=== PATIENT | male | born 1960 | race Caucasian/White ===

== ENCOUNTER 2018-03-22 11:48 | Inpatient (IN) ==
[2018-03-22] MEDS ORDERED: Piperacillin/Tazobactam 3.375 GM in 0.9 % Sodium Chloride Mini Bag 100 ML IVPB ONE (12:03)
--- NOTE | 2018-03-22 12:10 | Emergency Department Note ---
Disposition Clinical Impression: Cellulitis Qualifiers: Site of cellulitis: trunk Site of cellulitis of trunk: abdominal wall Qualified Code(s): L03.311 - Cellulitis of abdominal wall Obesity Qualifiers: Obesity type: unspecified obesity type Obesity classification: unspecified obesity classification Serious obesity comorbidity presence: unspecified whether serious comorbidity present Qualified Code(s): E66.9 - Obesity, unspecified Anemia Qualifiers: Anemia type: unspecified type Qualified Code(s): D64.9 - Anemia, unspecified Disposition: Admitted As Inpatient Condition: Fair [facility] Care Provider[facility] - Forms: ED Satisfaction Letter Time of Disposition: 12:40 Skin/Abscess/FB HPI Chief complaint: ED Skin/Abscess/Foreign Body Stated complaint: Acute cellulitis/open wound Time Seen by Provider: 03/22/18 11:55 Source: patient, EMS Mode of arrival: EMS Limitations: no limitations Nursing Notes Reviewed: Yes Vital Signs Reviewed: Yes HPI Narrative: Patient with increased redness and seeping from his left abdominal pannus. He states this is much worse than baseline. He relates it to having a urine soiled pad in contact with his skin during a recent admission. He has a history of obesity and chronic debility. He is nonambulatory and is BiPAP dependent. Patient denies fevers. He was sent from the [facility] Subjective Complaint: rash Onset (ago): day(s) Location: Abdomen Improves with: none Worsens with: other (Contact with urine) Context: recent antibiotic Associated symptoms: Reports: denies other symptoms Treatments prior to arrival: antibiotic Home Medications Medication Instructions Recorded Confirmed Levothyroxine [Synthroid] 75 mcg PO HS 03/12/18 03/12/18 Nystatin POWDER [Nystop] 1 appl TP DAILY 03/12/18 03/12/18 Previous Rx's Medication Instructions Recorded Atenolol 12.5 mg PO BID #30 03/14/18 Benadryl 25 mg PO Q6HR PRN #20 03/14/18 BuPROPion XL (24 HR) [Wellbutrin 300 mg PO DAILY #60 tab.er.24h 03/14/18 Xl] Bumetanide 1 mg PO 1200 #30 03/14/18 Bumetanide 2 mg PO QAM #30 03/14/18 Calcitriol [Rocaltrol] 0.25 mcg PO 1200 #30 capsule 03/14/18 Colace 200 mg PO BID #30 03/14/18 Cyanocobalamin (B-12) [Vitamin B12] 1,000 mcg PO DAILY #30 tablet 03/14/18 DULoxetine [Cymbalta] 60 mg PO DAILY #60 capsule. 03/14/18 Fluticasone Propionate [24 Hour 2 spray NS HS #1 spray.susp 03/14/18 Allergy] Insulin LISPRO [HumaLOG] 1 units SQ TIDWM #10 vial 03/14/18 Lantus 100 units SQ QAM #3 03/14/18 Lantus 200 units SQ QPM #3 03/14/18 Levothyroxine [Synthroid] 75 mcg PO HS #30 tablet 03/14/18 MOM Conc [MILK OF MAGNESIA conc] 10 ml PO TUFR@0900 #100 ud.liq 03/14/18 Morphine Sulfate SR (12 HR) [MS 15 mg PO Q8HR 10 Days #30 tablet.er 03/14/18 Contin] Omeprazole [PriLOSEC] 20 mg PO DAILY #30 capsule. 03/14/18 Ondansetron ODT [Zofran ODT] 4 mg SL Q8HR PRN #10 tab.rapdis 03/14/18 OxyCODONE/APAP 5/325 [Percocet 2 each PO BID PRN 10 Days #20 03/14/18 5/325 MG] tablet Polyethylene Glycol 3350 [MiraLAX] 17 gm PO DAILY #20 powd.pack 03/14/18 Spironolactone [Aldactone] 75 mg PO 0800,1200 #180 tablet 03/14/18 Tamsulosin [Flomax] 0.4 mg PO HS #30 capsule 03/14/18 Xanax 1 MG Tablet 1 mg PO TID PRN #20 03/14/18 Allergies Allergy/AdvReac Type Severity Reaction Status Date / Time clindamycin Allergy Hives Verified 02/26/16 07:07 gabapentin [From Neurontin] Allergy See Verified 11/20/15 20:15 Comments Hydromorphone [From Dilaudid] Allergy See Verified 11/20/15 20:15 Comments ketorolac [From Toradol] Allergy See Verified 11/20/15 20:15 Comments All systems ED: reviewed and negative except as stated. Constitutional: Reports: as per HPI Eyes: Reports: as per HPI ENT ED: Reports: as per HPI Cardiovascular: Reports: as per HPI Respiratory: Reports: as per HPI Gastrointestinal: Reports: as per HPI Genitourinary: Reports: as per HPI Musculoskeletal: Reports: as per HPI Integumentary: Reports: rash, other (Seepage from skin) Neurological: Reports: as per HPI Psychiatric: Reports: as per HPI Endocrine: Reports: as per HPI Hematological/Lymphatic: Reports: as per HPI Allergic/Immunologic: Reports: as per HPI Past Medical History - Past Medical History Source: patient Medical history: Reports: diabetes, hypertension, renal disease Psychiatric history: Reports: no psych history - Social History Smoking Status: Never smoker Smokeless Tobacco Status: No Alcohol use: Reports: none Drug use: Reports: none Physical Exam Lying supine in the left semilateral position - General Limitations: no limitations, physical limitation General appearance: alert, in no apparent distress - Eye Eye exam: Present: normal appearance - ENT ENT exam: normal exam - Neck Neck exam: Present: normal inspection, full ROM - Chest Chest inspection: Present: normal inspection, symmetric chest wall rise - Respiratory Respiratory exam: Present: other (Decreased breath sounds) - Cardiovascular Cardiovascular exam: Present: regular rate, normal rhythm, normal heart sounds - Abdominal Exam Abdominal exam: Present: soft, other (Obese. Increased induration and skin thickening to the left hemiabdomen. Increased tactile warmth and erythema. Serious drainage present.) - Extremities Exam Extremities exam: Present: pedal edema - Neurological Exam Neurological exam: Present: alert, oriented X3, CN II-XII intact - Psychiatric Psychiatric exam: Present: normal affect, normal mood - Skin Skin exam: Present: warm, dry Course Course Narrative: Patient presents as a transfer from the [facility] with increased redness and drainage from his abdominal pannus. Concern for cellulitis versus cutaneous reaction to soiled urine. Labs ordered. IV antiemetics initiated. 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 and this is also negatively affected his kidney function recently Vital Signs Temperature 98.5 F 03/22/18 11:51 Pulse Rate 74 03/22/18 11:51 Respiratory Rate 18 03/22/18 11:51 Blood Pressure 139/61 03/22/18 11:51 O2 Sat by Pulse Oximetry 98 03/22/18 11:51 Temperature 98.5 F 03/22/18 11:51 Pulse Rate 74 03/22/18 11:51 Respiratory Rate 18 03/22/18 11:51 Blood Pressure 139/61 03/22/18 11:51 O2 Sat by Pulse Oximetry 98 03/22/18 11:51 Oxygen Delivery Oxygen Delivery CPAP Mask O2 Skin/Abscess/Foreign Body - Lab Data Result diagrams: 03/22/18 12:01 Lab Results 03/22/18 03/22/18 Range/Units 12:01 12:01 WBC 9.6 (4.3-11.1) K/mcL RBC 3.51 L (4.19-5.50) M/mcL Hgb 9.9 L (12.9-16.9) g/dL Hct 31.4 L (37.5-50.1) % MCV 89.5 (83.0-100.0) fL MCH 28.2 (28.0-33.3) pg MCHC 31.5 L (31.6-35.5) g/dL RDW 15.8 H (11.5-14.5) % Plt Count 268 (140-400) K/mcL MPV 10.0 (9.4-12.4) fL Immature Gran % 0.5 (0-4) % Seg Neutrophils % 64.0 % Lymphocytes % 21.2 % Monocytes % 9.5 % Eosinophils % 4.2 % Basophils % 0.6 % Neutrophils # 6.1 (1.6-8.9) K/mcL Lymphocytes # 2.0 (0.6-4.6) K/mcL Monocytes # 0.9 (0.0-1.3) K/mcL Eosinophils # 0.4 (0.0-0.6) K/mcL Basophils # 0.1 (0.0-0.2) K/mcL PT 12.0 (9.4-12.1) Seconds INR 1.1
[2018-03-22 12:17] LABS: Basophils # 0.1 K/mcL (0.0-0.2); Basophils % 0.6 %; Eosinophils # 0.4 K/mcL (0.0-0.6); Eosinophils % 4.2 %; Hematocrit 31.4 % (37.5-50.1); Hemoglobin 9.9 g/dL (12.9-16.9); Immature Granulocytes % 0.5 % (0-4); Lymphocytes % 21.2 %; Mean Corpuscular HGB Conc 31.5 g/dL (31.6-35.5); Mean Corpuscular Hemoglobin 28.2 pg (28.0-33.3); Mean Corpuscular Volume 89.5 fL (83.0-100.0); Monocytes # 0.9 K/mcL (0.0-1.3); Monocytes % 9.5 %; Neutrophils # 6.1 K/mcL (1.6-8.9); Platelet Count 268 K/mcL (140-400); Red Blood Count 3.51 M/mcL (4.19-5.50); Red Cell Distribution Width 15.8 % (11.5-14.5)
[2018-03-22 12:23] LABS: INR 1.1
[2018-03-22 12:55] LABS: Alanine Aminotransferase 16 Units/L (7-52); Albumin 3.3 g/dL (3.5-5.7); Albumin/Globulin Ratio 1.1 (1.1-2.2); Alkaline Phosphatase 175 Units/L (34-104); Aspartate Amino Transferase 18 Units/L (13-39); BUN/Creatinine Ratio 23 (6-26); Bilirubin,Total 0.5 mg/dL (0.3-1.0); Blood Urea Nitrogen 32 mg/dL (6-20); Calcium 8.7 mg/dL (8.6-10.3); Carbon Dioxide 26 mEq/L (23-29); Chloride 97 mEq/L (98-107); Globulin 3.1 g/dL (2.4-3.5); Glucose 378 mg/dL (70-105); Osmolality,Calculated 302 (280-300); Potassium 4.4 mEq/L (3.5-5.1); Sodium 135 mEq/L (136-145); Total Protein 6.4 g/dL (6.4-8.9); eGFR For Non-African Americans 51 (> 60)
[2018-03-22] MEDS ORDERED: Naloxone 0.4 MG/ML INJ IVP PRN (21:22)
[2018-03-22] MEDS ORDERED: Sennosides/Docusate Sodium TABLET PO PRN (21:30)
[2018-03-22] MEDS ORDERED: ALPRAZolam 0.5 MG TABLET PO PRN (21:30)
[2018-03-22] MEDS ORDERED: Ondansetron ODT 4 MG TAB.RAPDIS SL PRN (21:30)
[2018-03-23] MEDS ORDERED: OXYCODONE Oral CONC 10 MG/0.5 ML ORAL.SYG SL PRN (00:02)
[2018-03-23] MEDS ORDERED: ALPRAZolam 0.5 MG TABLET PO PRN (00:15)
[2018-03-23] MEDS: Piperacillin/Tazobactam 3.375 GM in 0.9 % Sodium Chloride Mini Bag 100 ML IVPB SCH ×3 (01:07→12:22)
[2018-03-23] MEDS ORDERED: Dextrose Gel 15 GM/37.5 ML TUBE PO PRN ×2 (03:25)
[2018-03-23] MEDS ORDERED: *HR* Enoxaparin 40 MG/0.4 ML SYRINGE SQ SCH (06:00)
[2018-03-23] MEDS: Insulin LISPRO 300 UNITS/3 ML VIAL SQ SCH ×4 (06:37→23:34)
--- NOTE | 2018-03-23 07:11 | Internal Med History&Physical ---
Date of Encounter: 03/22/18 Time of Encounter: 23:00 Internal Medicine - H&P: HPI Chief complaint: Wound infection Admitted From: Home Plans for Post Hospital Care: Home History of present illness: Mr. Arreola is a 57 year old male. This patient was recently treated here for infection of the wound located in the left lower quadrant of abdominal wall. He was sent home with oral antibiotics one week ago. 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 The wound seems to be infected more. He denies fever and chills. This patient is morbidly obese; BMI of 72. He does have multiple medical problems. Other than morbid obesity he does have her type 2 diabetes mellitus (insulin-dependent), hypertension and chronic kidney disease. He is treated for GERD, BPH and inhalant allergies. He is treated for obstructive sleep apnea. Review of systems: All 14 organ systems were reviewed by me with the patient. Positive and pertinent negative findings are listed above. The rest of organ systems is negative. Physical Exam: The patient is morbidly obese. Skin: He has a wound located the in left lower quadrant of his abdominal wall. The examination is deferred to tomorrow. Eyes: Sclera is white. There is no discharge from eyes. ENMT: Oral/pharyngeal mucosa is normal in appearance. There is no discharge from nose or ears. Respiratory: Normal breath sounds with no crackles and wheezes bilaterally. CV: Heart is regular with no gallop or murmur. GI: Abdomen is flat and soft with no palpable mass or visceromegaly. : There is no tenderness in patient's flanks bilaterally. Neuro exam: He has good strength in upper and lower extremities. He has normal eye movements. Psychiatric: He has normal affect. His thought process is appropriate to the situation. Past Med Surg Social Fam HX - Past Medical History Medical history: diabetes, hypertension, renal disease Additional medical history: obesity Psychiatric history: no psych history - Past Surgical History Additional surgical history: apenalectomy - Social History Smoking Status: Never smoker Smokeless Tobacco Status: No Alcohol use: none Drug use: none - Family History Grandfather Hx Family Endocrine Disorder: Yes (DM) Internal Medicine - H&P: Meds Nystatin POWDER [Nystop] 1 appl TP DAILY 03/12/18 [History] BuPROPion XL (24 HR) [Wellbutrin Xl] 300 mg PO DAILY #60 tab.er.24h 03/14/18 [Rx ] Calcitriol [Rocaltrol] 0.25 mcg PO 1200 #30 capsule 03/14/18 [Rx] Cyanocobalamin (B-12) [Vitamin B12] 1,000 mcg PO DAILY #30 tablet 03/14/18 [Rx] DULoxetine [Cymbalta] 60 mg PO DAILY #60 capsule. 03/14/18 [Rx] Fluticasone Propionate [24 Hour Allergy] 2 spray NS HS #1 spray.susp 03/14/18 [ Rx] MOM Conc [MILK OF MAGNESIA conc] 10 ml PO TUFR@0900 #100 ud.liq 03/14/18 [Rx] Omeprazole [PriLOSEC] 20 mg PO DAILY #30 capsule. 03/14/18 [Rx] Ondansetron ODT [Zofran ODT] 4 mg SL Q8HR PRN #10 tab.rapdis 03/14/18 [Rx] Polyethylene Glycol 3350 [MiraLAX] 17 gm PO DAILY #20 powd.pack 03/14/18 [Rx] Spironolactone [Aldactone] 75 mg PO 0800,1200 #180 tablet 03/14/18 [Rx] Tamsulosin [Flomax] 0.4 mg PO HS #30 capsule 03/14/18 [Rx] ALPRAZolam [Xanax 1 MG Tablet] 1 tab PO TID PRN 03/22/18 [History] Atenolol [Tenormin] 12.5 mg PO BID 03/22/18 [History] Atorvastatin Calcium 80 mg PO HS 03/22/18 [History] Bumetanide [Bumex] 1 mg PO 1200 03/22/18 [History] Bumetanide [Bumex] 2 mg PO QAM 03/22/18 [History] Insulin ASPART [NovoLOG] 0 unit SQ TIDWM 03/22/18 [History] Insulin Glargine,Hum.rec.anlog [Lantus Solostar] 100 unit SQ QAM 03/22/18 [ History] Insulin Glargine,Hum.rec.anlog [Lantus Solostar] 200 unit SQ QPM 03/22/18 [ History] Levothyroxine [Synthroid] 75 mcg PO QAM 03/22/18 [History] Lidocaine 2 patch TP Q24H 03/22/18 [History] Miconazole Powder 1 appl TP BID 03/22/18 [History] Sennosides/Docusate Sodium [Senna Plus] 4 tab PO DAILY PRN 03/22/18 [History] OxyCODONE/APAP 10/325 [Percocet 10/325 MG] 1 each PO Q6HR PRN 03/23/18 [History] Oxycodone HCl [Oxycodone HCl ER] 15 mg PO TID 03/23/18 [History] 3 Allergy/AdvReac Type Severity Reaction Status Date / Time clindamycin Allergy Hives Verified 02/26/16 07:07 gabapentin [From Neurontin] Allergy See Verified 11/20/15 20:15 Comments Hydromorphone [From Dilaudid] Allergy See Verified 11/20/15 20:15 Comments ketorolac [From Toradol] Allergy See Verified 11/20/15 20:15 Comments All Systems PM: A 10-system review of systems was performed and is negative for pertinent findings except as documented above in the HPI. - Constitutional Vitals: Temp Pulse Resp BP Pulse Ox 98.1 F 72 17 130/61 93 03/23/18 03:53 03/23/18 03:53 03/23/18 03:53 03/23/18 03:53 03/23/18 03:53 Internal Med - H&P Results - Labs CBC & Chem 7: 03/22/18 12:01 03/22/18 12:01 - Assessment and plan (1) Wound, open, abdominal wall, anterior Current Visit: No Status: Acute Assessment and plan: We will continue IV Zosyn. I requested wound care consult. Qualifiers: Encounter type: subsequent encounter Qualified Code(s): S31.109D - Unspecified open wound of abdominal wall, unspecified quadrant without penetration into peritoneal cavity, subsequent encounter (2) Morbid obesity with BMI of 70 and over, adult Current Visit: Yes Status: Chronic Assessment and plan: We will continue supportive treatment. He got his bariatric bed. (3) RICK (obstructive sleep apnea) Current Visit: Yes Status: Acute Assessment and plan: We will continue CPAP. (4) Type 2 diabetes mellitus Current Visit: Yes Status: Acute Assessment and plan: We will continue diabetic diet. Insulin Levemir with when necessary insulin Humalog. 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
[2018-03-23] MEDS ORDERED: Insulin DETEMIR 100 UNIT/ML X5UNITS SQ SCH ×3 (09:00→18:00)
[2018-03-23] MEDS: MOM Conc 10 ML UD.LIQ PO SCH (09:08)
[2018-03-23] MEDS: Spironolactone 25 MG TABLET PO SCH ×2 (09:40→12:21)
[2018-03-23] MEDS: BuPROPion XL (24 HR) 150 MG TABLET PO SCH (09:40)
[2018-03-23] MEDS: Bumetanide 1 MG TABLET PO SCH ×2 (09:41→12:21)
[2018-03-23] MEDS: Cyanocobalamin (B-12) 1,000 MCG TABLET PO SCH (09:41)
[2018-03-23] MEDS: Nystatin POWDER 30 GM BOTTLE TP SCH ×2 (09:41→21:57)
[2018-03-23 10:00] LABS: Basophils # 0.1 K/mcL (0.0-0.2); Basophils % 0.7 %; Eosinophils # 0.4 K/mcL (0.0-0.6); Eosinophils % 4.9 %; Hematocrit 30.4 % (37.5-50.1); Hemoglobin 9.6 g/dL (12.9-16.9); Immature Granulocytes % 0.5 % (0-4); Lymphocytes # 1.6 K/mcL (0.6-4.6); Lymphocytes % 21.6 %; Mean Corpuscular HGB Conc 31.6 g/dL (31.6-35.5); Mean Corpuscular Hemoglobin 28.2 pg (28.0-33.3); Mean Corpuscular Volume 89.1 fL (83.0-100.0); Mean Platelet Volume 9.7 fL (9.4-12.4); Monocytes # 0.7 K/mcL (0.0-1.3); Monocytes % 9.2 %; Neutrophils # 4.6 K/mcL (1.6-8.9); Platelet Count 246 K/mcL (140-400); Red Blood Count 3.41 M/mcL (4.19-5.50); Red Cell Distribution Width 15.6 % (11.5-14.5); Segmented Neutrophils % 63.1 %
[2018-03-23] MEDS ORDERED: *HR* OxyCODONE/APAP 10/325 TABLET PO PRN (10:05)
[2018-03-23 10:22] LABS: Calcium 8.4 mg/dL (8.6-10.3); Potassium 4.5 mEq/L (3.5-5.1)
[2018-03-23 11:31] LABS: Estimated Average Glucose 269 mg/dl
--- NOTE | 2018-03-23 11:32 | Internal Med Progress Note ---
Hospitalist Progress Note - Encounter Date of Encounter: 03/23/18 Time of Encounter: 08:30 - Subjective Interval History: 57-year-old morbidly obese male presented to the ED with subjective fevers and abdominal wound. He was admitted and was started on broad-spectrum antibiotics. Currently he is complaining about his insulin regimen, he is also complaining of pain and wants to sign out AMA. I discussed the with patient the risks associated with signing AGAINST MEDICAL ADVICE. Currently he is complaining of left lower quadrant abdominal pain, denies fever , chills, nausea, vomiting, diarrhea. He reports that he is compliant with all his medications although A1c on last admission late February was 11.1%. He denies chest pain, shortness of breath, palpitations. he would like his lasix to be restarted as it was stopped on last admission due to worsening renal functions. - Exam Vitals: Temp Pulse Resp BP Pulse Ox 98.1 F 72 17 130/61 93 03/23/18 03:53 03/23/18 03:53 03/23/18 03:53 03/23/18 03:53 03/23/18 03:53 Exam: General: Patient is alert, oriented, no acute distress, morbidly obese Head: atraumatic, normocephalic, Eye: normal appearance, PERRL, no scleral icterus, no conjunctival injection ENT: mucous membranes moist, normal external ear exam Neck: normal inspection, trachea midline, full ROM, no carotid bruits Chest: normal inspection, symmetric chest rise Respiratory: Decreased breath sounds secondary to body habitus, no wheezing or crackles appreciated Cardiovascular: Distant heart sounds secondary to body habitus, Regular rate and rhythm. s1 and s2 No clicks, rubs, gallops, or murmors. Abdomen: Morbidly obese abdomen, he has a 24 cm x 24 cm area of erythema, warmth , small area of purulent drainage, foul-smelling, large area of induration . Bowel sounds present normoactive x-4 quadrants. Abdomen is soft,no Epigastric tenderness. No guarding or rebound. No organomegaly noted, musculoskeletal: Spontaneously moving all extremities. Left lower extremity edema (chronic - sleeps on the left side and cannot move duet to body habitus. Skin: warm, dry, intact. Neuro: Alert and oriented x4. Sensation light touch intact. Cranial nerves 2- 12 is intact. Not aphasic, Psych: Patient's affect is normal - Assessment and Plan (1) Cellulitis Current Visit: Yes Status: Acute Assessment and Plan: Large area approximately 24 x 24 cm and the left lower quadrant, with induration Due to body habitus and BMI of 72.3 he is unable to have CT of his abdomen performed Ultrasound of the area was ordered we will follow-up with the results Started on IV vancomycin and Zosyn We will follow blood cx ID was consulted will follow recommendations ESR, and CRP sent Pain control with home medications Wound care consulted (2) Type 2 diabetes mellitus Current Visit: Yes Status: Acute Assessment and Plan: Uncontrolled, A1c on last admission was 11% On admission blood glucose 374 Started the patient on his home regimen Levemir 100 units every morning and 100 units daily at bedtime We will continue sliding-scale coverage every 6 hours Beta hydroxybutyrate and A1c was sent will follow Strict glucose monitoring (3) Hyperosmolar nonketotic coma in diabetes Current Visit: Yes Status: Acute Assessment and Plan: Secondary to above, management as per above (4) CKD (chronic kidney disease) Current Visit: No Status: Chronic Assessment and Plan: Creatinine today is 1.63 which is around his baseline from last admission We will continue to monitor renal functions Dose antibiotics as per renal function Avoid nephrotoxic drugs We will hold off his Lasix until renal functions have improved Strict intake and output (5) RICK (obstructive sleep apnea) Current Visit: Yes Status: Acute Assessment and Plan: Continue with CPAP at night (6) Edema of left lower extremity Current Visit: Yes Status: Acute Assessment and Plan: We will get DVT study of the extremities High risk (7) Morbid obesity with BMI of 70 and over, adult Current Visit: Yes Status: Chronic Assessment and Plan: Nutrition consult DVT Prophylaxis: We will start him on heparin subcutaneous - Time Spent with Patient Total time spent is greater than 50% in coordination of care (as documented) at patient's floor/unit and/or counseling patient: Internal Medicine: Result - Labs CBC & Chem 7: 03/23/18 09:47 03/23/18 09:47 Labs: Short CBC 03/23/18 Range/Units 09:47 WBC 7.3 (4.3-11.1) K/mcL Hgb 9.6 L (12.9-16.9) g/dL Hct 30.4 L (37.5-50.1) % Plt Count 246 (140-400) K/mcL Neutrophils # 4.6 (1.6-8.9) K/mcL BMP 03/23/18 09:47 Sodium 134 L Potassium 4.5 Chloride 97 L Carbon Dioxide 29 BUN 35 H Creatinine 1.63 H Glucose 437 H Calcium 8.4 L - ABG Interpretation ABG results: PT/INR, D-dimer PT 12.0 Seconds (9.4-12.1) 03/22/18 12:01 Consult Discharge Plan - Plan [facility]errals: [facility] [Primary Care Provider[facility] - (1) Cellulitis Qualifiers: Site of cellulitis: trunk Site of cellulitis of trunk: abdominal wall Qualified Code(s): L03.311 - Cellulitis of abdominal wall (2) Type 2 diabetes mellitus Qualifiers: Diabetes mellitus chcf insulin use: with chcf use Diabetes mellitus complication status: with skin complications (4) CKD (chronic kidney disease) Qualifiers: Chronic kidney disease stage: stage 3 (moderate) Qualified Code(s): N18.3 - Chronic kidney disease, stage 3 (moderate)
--- NOTE | 2018-03-23 14:01 | Infectious Disease Consult ---
Date of Encounter: 03/23/18 Time of Encounter: 13:53 Assessment and Plan (1) Cellulitis Status: Acute Assessment and plan: Of the abdominal wall. Symptoms have been present for a few days prior to admission Causative organism not clear [facility] Patient unable to get a CT due to his morbid obesity and ultrasound was ordered by the hospitalist team Agree with broad-spectrum antibiotics But because of his kidney issues, recommend vancomycin and cefepime instead of Zosyn Goal vancomycin trough 10-15; will ask pharmacy to help with the dosing Await blood cultures Surgery to evaluate for possible I&D if ultrasound shows an abscess or fluid collection Monitor labs and for drug toxicity Qualifiers: Site of cellulitis: trunk Site of cellulitis of trunk: abdominal wall Qualified Code(s): L03.311 - Cellulitis of abdominal wall (2) Lymphedema in adult patient Status: Acute Assessment and plan: Patient apparently had surgery at [facility] and after that had lymphedema in the left lower extremity from scarring in 2011 (3) Diabetic neuropathy Status: Acute Assessment and plan: Patient cannot take gabapentin or Lyrica because they cause him to have jerking of the muscle Qualifiers: Diabetes mellitus type: type 2 Diabetes mellitus complication detail: diabetic polyneuropathy Qualified Code(s): E11.42 - Type 2 diabetes mellitus with diabetic polyneuropathy (4) Wound, open, abdominal wall, anterior Status: Acute Assessment and plan: Wound is about 10 cm in length and about 3 cm in width stage III or stage IV with granulation tissue with no surrounding erythema. Nonpainful Get a swab culture of the wound Consult wound care to evaluate Qualifiers: Encounter type: subsequent encounter Qualified Code(s): S31.109D - Unspecified open wound of abdominal wall, unspecified quadrant without penetration into peritoneal cavity, subsequent encounter (5) Allergy to antibiotic Status: Acute Assessment and plan: Patient does not have a true allergy but intolerance to clindamycin. He was told that it affected his kidneys in the past. (6) Morbid (severe) obesity due to excess calories Status: Chronic (7) Diabetes mellitus Status: Chronic Assessment and plan: Diagnosed 25 years ago On insulin Poorly controlled Qualifiers: Diabetes mellitus type: type 2 Diabetes mellitus custodial insulin use: with termination clerk use Diabetes mellitus complication status: with hyperglycemia Qualified Code(s): E11.65 - Type 2 diabetes mellitus with hyperglycemia; Z79.4 - termination clerk (current) use of insulin (8) RICK (obstructive sleep apnea) Status: Acute (9) Type 2 diabetes mellitus Status: Acute Assessment and plan: Poorly controlled. Hemoglobin A1c 11 Needs adequate glucose control Qualifiers: Diabetes mellitus termination clerk insulin use: with custodial use Diabetes mellitus complication status: with neurologic complications Diabetes mellitus complication detail: with polyneuropathy Qualified Code(s): E11.42 - Type 2 diabetes mellitus with diabetic polyneuropathy; Z79.4 - shelter (current) use of insulin Infectious Disease HPI - Data of Consult Patient: new to practice Consult date: 03/23/18 Requesting Physician: Indy Bejarano MD [facility] - Consult Narrative Reason for consult: Abdominal wound History of present illness: Mr. Arreola is a 57 year old male Patient is 57-year-old gentleman who presented to [facility] on 03/22/2018 with a wound infection, we are consulted on antibiotics recommendations. Patient is a 57-year-old gentleman with past medical history mentioned below including morbid obesity with a BMI of 72, diabetes mellitus type 2 poorly controlled on insulin since age 35, her for neuropathy, bilateral venous stasis , obstructive sleep apnea who presented to [facility] initially on 03/11/2018 covered in urine and feces with infected abdominal wound. At that time patient had blood cultures obtained which were negative and patient was treated with IV Zosyn for 4 days and discharged on no antibiotics. Patient also has left lower quadrant cellulitis and presented to the emergency department for evaluation. Patient denied any fevers or chills at home. Patient denies any nausea or vomiting. No chest pain or shortness of breath. No diarrhea. No urinary symptoms. Patient is nonambulatory at home. Patient lives at home with his . He has children that are all grown and out of the house. No animals at home. 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 Patient also tells me that recently he has swab culture of the wound which was positive for MRSA at the [facility]. Since admission, patient has been afebrile with a MAXIMUM TEMPERATURE of 99 Fahrenheit. No tachycardia. Presenting WBC of 9.6 with normal differential no bands. Patient noted to have acute on chronic kidney injury with a BUN of 35 and creatinine of 1.63. Blood glucose was elevated at 411. Hemoglobin A1c was 11. CRP and ESR were [address] abdomen was ordered but apparently the patient's weight exceeds the limits of the CT scanner. I received a Call from the hospitalist who canceled the CT and ordered a ultrasound. CC: Indy Bejarano MD Past Med Surg Social Fam HX - Past Medical History Medical history: diabetes, hypertension, renal disease Additional medical history: obesity Psychiatric history: no psych history - Past Surgical History Additional surgical history: apenalectomy - Social History Smoking Status: Never smoker Smokeless Tobacco Status: No Alcohol use: none Drug use: none - Family History Grandfather Hx Family Endocrine Disorder: Yes (DM) Infectious Disease-CN:Meds Nystatin POWDER [Nystop] 1 appl TP DAILY 03/12/18 [History] BuPROPion XL (24 HR) [Wellbutrin Xl] 300 mg PO DAILY #60 tab.er.24h 03/14/18 [Rx ] Calcitriol [Rocaltrol] 0.25 mcg PO 1200 #30 capsule 03/14/18 [Rx] Cyanocobalamin (B-12) [Vitamin B12] 1,000 mcg PO DAILY #30 tablet 03/14/18 [Rx] DULoxetine [Cymbalta] 60 mg PO DAILY #60 capsule. 03/14/18 [Rx] Fluticasone Propionate [24 Hour Allergy] 2 spray NS HS #1 spray.susp 03/14/18 [ Rx] MOM Conc [MILK OF MAGNESIA conc] 10 ml PO TUFR@0900 #100 ud.liq 03/14/18 [Rx] Omeprazole [PriLOSEC] 20 mg PO DAILY #30 capsule. 03/14/18 [Rx] Ondansetron ODT [Zofran ODT] 4 mg SL Q8HR PRN #10 tab.rapdis 03/14/18 [Rx] Polyethylene Glycol 3350 [MiraLAX] 17 gm PO DAILY #20 powd.pack 03/14/18 [Rx] Spironolactone [Aldactone] 75 mg PO 0800,1200 #180 tablet 03/14/18 [Rx] Tamsulosin [Flomax] 0.4 mg PO HS #30 capsule 03/14/18 [Rx] ALPRAZolam [Xanax 1 MG Tablet] 1 tab PO TID PRN 03/22/18 [History] Atenolol [Tenormin] 12.5 mg PO BID 03/22/18 [History] Atorvastatin Calcium 80 mg PO HS 03/22/18 [History] Bumetanide [Bumex] 1 mg PO 1200 03/22/18 [History] Bumetanide [Bumex] 2 mg PO QAM 03/22/18 [History] Insulin ASPART [NovoLOG] 0 unit SQ TIDWM 03/22/18 [History] Insulin Glargine,Hum.rec.anlog [Lantus Solostar] 100 unit SQ QAM 03/22/18 [ History] Insulin Glargine,Hum.rec.anlog [Lantus Solostar] 200 unit SQ QPM 03/22/18 [ History] Levothyroxine [Synthroid] 75 mcg PO QAM 03/22/18 [History] Lidocaine 2 patch TP Q24H 03/22/18 [History] Miconazole Powder 1 appl TP BID 03/22/18 [History] Sennosides/Docusate Sodium [Senna Plus] 4 tab PO DAILY PRN 03/22/18 [History] Morphine Sulfate [Arymo ER] 15 mg PO TID 03/23/18 [History] Oxycodone HCl/Acetaminophen [Percocet 5-325 mg Tablet] 1 tab PO Q12H PRN [History] 3 Allergy/AdvReac Type Severity Reaction Status Date / Time clindamycin Allergy Hives Verified 02/26/16 07:07 gabapentin [From Neurontin] Allergy See Verified 11/20/15 20:15 Comments Hydromorphone [From Dilaudid] Allergy See Verified 11/20/15 20:15 Comments ketorolac [From Toradol] Allergy See Verified 11/20/15 20:15 Comments Review of systems: 10 point review of systems done, negative other for what mentioned in history of present illness. Exam - Constitutional Vitals: Temp Pulse Resp BP Pulse Ox 98.7 F 66 16 124/70 95 03/23/18 11:47 03/23/18 11:47 03/23/18 11:47 03/23/18 11:47 03/23/18 11:47 General appearance: no acute distress, no febrile, no cooperative Exam: Initially stated that he does not want to answer any questions in the over the spoke with 12 people before me that later he was pleasant and answered all my questions. - Head Head exam: Present: atraumatic, normocephalic - Eye Eye exam: Present: EOMI, PERRL, sclera anicteric - ENT ENT exam: Present: mucous membranes moist Additional comments: No oral thrush - Neck Neck exam: Present: full ROM. Absent: meningismus - Respiratory Respiratory exam: Present: CTAB. Absent: wheezes Additional comments: Limited exam - Cardiovascular Cardiovascular exam: Present: RRR, +S1, +S2 - GI/Abdominal GI/Abdominal exam: Present: normal bowel sounds Additional comments: Large with a massive pannus. He has an ulcerated lesion stage III under his right breast fold. There is an area about 20 cm in diameter with erythema and warmth but I did not appreciate any fluctuance or purulence. - Extremities Exam Additional comments: Massive lymphedema in bilateral lower extremities. Has excoriation bilateral thighs. Bilateral venous stasis on the lower extremities. No obvious cellulitis. - Neurological Exam Neurological exam: Present: alert, oriented X3 Additional comments: Answers questions and follows commands. - Psychiatric Psychiatric exam: Present: agitated, normal affect - Skin Additional comments: Excoriation and venous stasis lesions on bilateral lower extremities. Infectious Disease CN: Results - Labs CBC & Chem 7: 03/23/18 09:47 03/23/18 09:47 Consult Discharge Plan - Plan [facility]errals: [facility]Primary Care Provider[facility] -
[2018-03-23] MEDS: *HR* Heparin 5,000 UNIT/ML VIAL SQ SCH ×2 (14:59→21:53)
[2018-03-23] MEDS: *HR* Morphine Sulfate SR (12 HR) 15 MG TABLET.ER PO SCH ×3 (14:59→21:55)
[2018-03-23] MEDS ORDERED: [UNRECOGNIZED DRUG - OTHER] SQ SCH (18:00)
[2018-03-23] MEDS ORDERED: INSULIN GLARGINE HUM REC ANLOG SQ SCH (18:00)
[2018-03-23] MEDS: Cefepime HCl 2,000 MG in 0.9 % Sodium Chloride Mini Bag 100 ML IVPB SCH (18:07)
[2018-03-23] MEDS ORDERED: Piperacillin/Tazobactam 3.375 GM in 0.9 % Sodium Chloride Mini Bag 100 ML IVPB SCH (20:00)
[2018-03-23] MEDS ORDERED: NON-FORMULARY MEDICATION 1 EACH EACH (Morphine Sulfate [Arymo Er] 15 MG) PO SCH (21:00)
[2018-03-23] MEDS: Fluticasone Propionate Nasal 50 MCG/SPRAY BOTTLE NS SCH (21:56)
[2018-03-24 01:52] LABS: Basophils % 0.5 %; Eosinophils # 0.3 K/mcL (0.0-0.6); Eosinophils % 4.5 %; Hematocrit 28.6 % (37.5-50.1); Immature Granulocytes % 0.5 % (0-4); Lymphocytes # 1.2 K/mcL (0.6-4.6); Lymphocytes % 16.3 %; Mean Corpuscular HGB Conc 31.5 g/dL (31.6-35.5); Mean Corpuscular Hemoglobin 27.4 pg (28.0-33.3); Mean Corpuscular Volume 87.2 fL (83.0-100.0); Mean Platelet Volume 10.3 fL (9.4-12.4); Monocytes # 0.5 K/mcL (0.0-1.3); Monocytes % 6.7 %; Neutrophils # 5.3 K/mcL (1.6-8.9); Platelet Count 256 K/mcL (140-400); Red Blood Count 3.28 M/mcL (4.19-5.50); Red Cell Distribution Width 15.5 % (11.5-14.5); Segmented Neutrophils % 71.5 %
[2018-03-24 02:13] LABS: Calcium 8.4 mg/dL (8.6-10.3); Potassium 4.5 mEq/L (3.5-5.1)
--- NOTE | 2018-03-24 02:20 | Event Note ---
Date of Encounter: 03/24/18 Time of Encounter: 02:00 Notified by nurse that patient's fingersticks were 538, received levemir 200units at bedtime and received 16units of novolog stat per correction. Osmolality was 305. Anion gap WNL. Will start on IV fluids and monitor fingersticks
[2018-03-24] MEDS ORDERED: 0.9 % Sodium Chloride 1,000 ML IVC SCH (02:30)
[2018-03-24] MEDS: MICONAZOLE NITRATE 57 GM TUBE TP SCH ×4 (05:07→22:39)
[2018-03-24] MEDS: Insulin LISPRO 300 UNITS/3 ML VIAL SQ SCH ×2 (05:51→21:14)
[2018-03-24] MEDS: *HR* Heparin 5,000 UNIT/ML VIAL SQ SCH ×4 (07:02→22:38)
[2018-03-24] MEDS ORDERED: *HR* Dextrose 50 % in Water (Syg) 50 ML SYRINGE IVP PRN ×3 (07:23→17:31)
[2018-03-24] MEDS ORDERED: Insulin Regular, Human 100 UNIT/ML IV ONE (07:23)
[2018-03-24] MEDS ORDERED: Insulin Human Regular 100 UNIT in 0.9 % Sodium Chloride 100 ML IVC SCH ×2 (07:30→11:00)
[2018-03-24] MEDS ORDERED: 0.9 % Sodium Chloride w KCl 20 MEQ/1,000 ML MLS IVC SCH (07:30)
[2018-03-24] MEDS: Cefepime HCl 2,000 MG in 0.9 % Sodium Chloride Mini Bag 100 ML IVPB SCH ×2 (08:14→16:56)
[2018-03-24] MEDS: Bumetanide 1 MG TABLET PO SCH ×2 (08:18→11:56)
[2018-03-24] MEDS: Cyanocobalamin (B-12) 1,000 MCG TABLET PO SCH (08:19)
[2018-03-24] MEDS: Spironolactone 25 MG TABLET PO SCH ×2 (08:19→11:56)
[2018-03-24] MEDS: BuPROPion XL (24 HR) 150 MG TABLET PO SCH (08:19)
[2018-03-24] MEDS: *HR* Morphine Sulfate SR (12 HR) 15 MG TABLET.ER PO SCH ×3 (08:20→21:09)
[2018-03-24 08:22] LABS: VBG HCO3 29 mEq/L (21-27); VBG PCO2 58 mmHg (41-51); VBG PH 7.31 pH Units (7.32-7.42); VBG PO2 168 mmHg (25-50)
[2018-03-24] MEDS: Nystatin POWDER 30 GM BOTTLE TP SCH ×2 (08:23→21:29)
[2018-03-24 08:34] LABS: Magnesium 1.3 mg/dL (1.6-2.6); Phosphorous 3.2 mg/dL (2.7-4.5)
--- NOTE | 2018-03-24 11:54 | General Surgery Consult Note ---
<Delfina Luo E - Last Filed: 03/24/18 13:17> Date of Encounter: 03/24/18 Time of Encounter: 11:52 Assessment and Plan (1) Cellulitis Current Visit: Yes Status: Acute Continue with antimicrobial therapy as per ID No surgical intervention at this time Continue wound dressing with antifungal cream as described by ID Surgery will follow from a distance Qualifiers: Site of cellulitis: trunk Site of cellulitis of trunk: abdominal wall Qualified Code(s): L03.311 - Cellulitis of abdominal wall History of Present Illness Reason for consult: wound care History of present illness: Patient has had a recurring wound on his left side and down into his pannus. He is unsure of when this started exactly, but knows it has been going on for at least a few days. He does see a production team leader in [place] for this and typically is given an ointment that causes the area to become soft and then it can be scraped off. Past Med Surg Social Fam HX - Past Medical History Medical history: diabetes, hypertension, renal disease Additional medical history: obesity Psychiatric history: no psych history - Past Surgical History Additional surgical history: apenalectomy - Social History Smoking Status: Never smoker Smokeless Tobacco Status: No Alcohol use: none Drug use: none - Family History Grandfather Hx Family Endocrine Disorder: Yes (DM) Medications and Allergies Nystatin POWDER [Nystop] 1 appl TP DAILY 03/12/18 [History] BuPROPion XL (24 HR) [Wellbutrin Xl] 300 mg PO DAILY #60 tab.er.24h 03/14/18 [Rx ] Calcitriol [Rocaltrol] 0.25 mcg PO 1200 #30 capsule 03/14/18 [Rx] Cyanocobalamin (B-12) [Vitamin B12] 1,000 mcg PO DAILY #30 tablet 03/14/18 [Rx] DULoxetine [Cymbalta] 60 mg PO DAILY #60 capsule. 03/14/18 [Rx] Fluticasone Propionate [24 Hour Allergy] 2 spray NS HS #1 spray.susp 03/14/18 [ Rx] MOM Conc [MILK OF MAGNESIA conc] 10 ml PO TUFR@0900 #100 ud.liq 03/14/18 [Rx] Omeprazole [PriLOSEC] 20 mg PO DAILY #30 capsule. 03/14/18 [Rx] Ondansetron ODT [Zofran ODT] 4 mg SL Q8HR PRN #10 tab.rapdis 03/14/18 [Rx] Polyethylene Glycol 3350 [MiraLAX] 17 gm PO DAILY #20 powd.pack 03/14/18 [Rx] Spironolactone [Aldactone] 75 mg PO 0800,1200 #180 tablet 03/14/18 [Rx] Tamsulosin [Flomax] 0.4 mg PO HS #30 capsule 03/14/18 [Rx] ALPRAZolam [Xanax 1 MG Tablet] 1 tab PO TID PRN 03/22/18 [History] Atenolol [Tenormin] 12.5 mg PO BID 03/22/18 [History] Atorvastatin Calcium 80 mg PO HS 03/22/18 [History] Bumetanide [Bumex] 1 mg PO 1200 03/22/18 [History] Bumetanide [Bumex] 2 mg PO QAM 03/22/18 [History] Insulin ASPART [NovoLOG] 0 unit SQ TIDWM 03/22/18 [History] Insulin Glargine,Hum.rec.anlog [Lantus Solostar] 100 unit SQ QAM 03/22/18 [ History] Insulin Glargine,Hum.rec.anlog [Lantus Solostar] 200 unit SQ QPM 03/22/18 [ History] Levothyroxine [Synthroid] 75 mcg PO QAM 03/22/18 [History] Lidocaine 2 patch TP Q24H 03/22/18 [History] Miconazole Powder 1 appl TP BID 03/22/18 [History] Sennosides/Docusate Sodium [Senna Plus] 4 tab PO DAILY PRN 03/22/18 [History] Morphine Sulfate [Arymo ER] 15 mg PO TID 03/23/18 [History] Oxycodone HCl/Acetaminophen [Percocet 5-325 mg Tablet] 1 tab PO Q12H PRN [History] 3 Allergy/AdvReac Type Severity Reaction Status Date / Time clindamycin Allergy Hives Verified 02/26/16 07:07 gabapentin [From Neurontin] Allergy See Verified 11/20/15 20:15 Comments Hydromorphone [From Dilaudid] Allergy See Verified 11/20/15 20:15 Comments ketorolac [From Toradol] Allergy See Verified 11/20/15 20:15 Comments Review of Systems All systems PM: The remainder of the systems were reviewed and are negative - Constitutional as per [facility] General Surgery Exam Initial Vital Signs Temp Pulse Resp BP Pulse Ox 98.5 F 74 18 139/61 98 03/22/18 11:51 03/22/18 11:51 03/22/18 11:51 03/22/18 11:51 03/22/18 11:51 - Respiratory normal expansion, normal respiratory effort, clear to auscultation - Cardiovascular Cardiovascular exam: Present: RRR, no murmurs/rubs/gallops - Abdomen Abdomen general surgery: Present: wound (Patient has a large area of redness approxamately 20cm x 15 cm along his left side, center of the area is emacerated and draining clear fluid, surrounded the emacerated area is a rim of white hard material that looks to be fungal in nature. Surrounding that is reddness. This extends down his side and curves around with his pannus. ) - Musculoskeletal Present: other (daren is a very large man, must be reclined in bed) - Psychiatric Psychiatric general surgery: Present: oriented to person, oriented to place, oriented to time, other (agittated, wishes to be sent to a different hospital) Exam Initial Vital Signs Temp Pulse Resp BP Pulse Ox 98.5 F 74 18 139/61 98 03/22/18 11:51 03/22/18 11:51 03/22/18 11:51 03/22/18 11:51 03/22/18 11:51 Results - Labs 03/24/18 00:33 03/24/18 11:34 Abnormal lab results RBC 3.28 M/mcL (4.19-5.50) L 03/24/18 00:33 Hgb 9.0 g/dL (12.9-16.9) L 03/24/18 00:33 Hct 28.6 % (37.5-50.1) L 03/24/18 00:33 MCH 27.4 pg (28.0-33.3) L 03/24/18 00:33 MCHC 31.5 g/dL (31.6-35.5) L 03/24/18 00:33 RDW 15.5 % (11.5-14.5) H 03/24/18 00:33 ESR 98 mm/hr (0-10) H 03/23/18 09:47 VBG pH 7.31 pH Units (7.32-7.42) L 03/24/18 08:20 VBG pCO2 58 mmHg (41-51) H 03/24/18 08:20 VBG pO2 168 mmHg (25-50) H 03/24/18 08:20 VBG HCO3 29 mEq/L (21-27) H 03/24/18 08:20 Sodium 131 mEq/L (136-145) L 03/24/18 00:33 Chloride 95 mEq/L (98-107) L 03/24/18 00:33 BUN 38 mg/dL (6-20) H 03/24/18 00:33 Creatinine 1.79 mg/dL (0.70-1.30) H 03/24/18 00:33 Est GFR ( Amer) 48 (> 60) L 03/24/18 00:33 Est GFR (Non-Af Amer) 39 (> 60) L 03/24/18 00:33 Glucose 538 mg/dL (70-105) H* 03/24/18 00:33 POC Glucose 368 mg/dL (70-99) H 03/24/18 08:58 Hemoglobin A1c 11.0 % (-5.6) H 03/23/18 09:47 Calculated Osmolality 305 (280-300) H 03/24/18 00:33 Calcium 8.4 mg/dL (8.6-10.3) L 03/24/18 00:33 Magnesium 1.3 mg/dL (1.6-2.6) L 03/24/18 07:51 Alkaline Phosphatase 175 Units/L (34-104) H 03/22/18 12:01 C-Reactive Protein 47 mg/L (Less than 10) H 03/23/18 09:47 Albumin 3.3 g/dL (3.5-5.7) L 03/22/18 12:01 Diabetes panel 03/24/18 Range/Units 00:33 Sodium 131 L (136-145) mEq/L Potassium 4.5 (3.5-5.1) mEq/L Chloride 95 L (98-107) mEq/L Carbon Dioxide 26 (23-29) mEq/L BUN 38 H (6-20) mg/dL Creatinine 1.79 H (0.70-1.30) mg/dL Glucose 538 H* (70-105) mg/dL Calcium 8.4 L (8.6-10.3) mg/dL Calcium panel 03/24/18 03/24/18 Range/Units 00:33 07:51 Calcium 8.4 L (8.6-10.3) mg/dL Phosphorus 3.2 (2.7-4.5) mg/dL Pituitary panel 03/24/18 Range/Units 00:33 Sodium 131 L (136-145) mEq/L Potassium 4.5 (3.5-5.1) mEq/L Chloride 95 L (98-107) mEq/L Carbon Dioxide 26 (23-29) mEq/L BUN 38 H (6-20) mg/dL Creatinine 1.79 H (0.70-1.30) mg/dL Glucose 538 H* (70-105) mg/dL Calcium 8.4 L (8.6-10.3) mg/dL Adrenal panel 03/24/18 Range/Units 00:33 Sodium 131 L (136-145) mEq/L Potassium 4.5 (3.5-5.1) mEq/L Chloride 95 L (98-107) mEq/L Carbon Dioxide 26 (23-29) mEq/L BUN 38 H (6-20) mg/dL Creatinine 1.79 H (0.70-1.30) mg/dL Glucose 538 H* (70-105) mg/dL Calcium 8.4 L (8.6-10.3) mg/dL All other labs normal. Consult Discharge Plan - Plan [facility]errals: [facility] [Primary Care Provider] - <Aman Randle - Last Filed: 03/24/18 15:01> Date of Encounter: 03/24/18 Review of Systems All systems PM: The remainder of the systems were reviewed and are negative General Surgery Exam Initial Vital Signs Temp Pulse Resp BP Pulse Ox 98.5 F 74 18 139/61 98 03/22/18 11:51 03/22/18 11:51 03/22/18 11:51 03/22/18 11:51 03/22/18 11:51 Exam Initial Vital Signs Temp Pulse Resp BP Pulse Ox 98.5 F 74 18 139/61 98 03/22/18 11:51 03/22/18 11:51 03/22/18 11:51 03/22/18 11:51 03/22/18 11:51 Results - Labs 03/24/18 00:33 03/24/18 11:34 Abnormal lab results RBC 3.28 M/mcL (4.19-5.50) L 03/24/18 00:33 Hgb 9.0 g/dL (12.9-16.9) L 03/24/18 00:33 Hct 28.6 % (37.5-50.1) L 03/24/18 00:33 MCH 27.4 pg (28.0-33.3) L 03/24/18 00:33 MCHC 31.5 g/dL (31.6-35.5) L 03/24/18 00:33 RDW 15.5 % (11.5-14.5) H 03/24/18 00:33 ESR 98 mm/hr (0-10) H 03/23/18 09:47 VBG pH 7.31 pH Units (7.32-7.42) L 03/24/18 08:20 VBG pCO2 58 mmHg (41-51) H 03/24/18 08:20 VBG pO2 168 mmHg (25-50) H 03/24/18 08:20 VBG HCO3 29 mEq/L (21-27) H 03/24/18 08:20 Sodium 134 mEq/L (136-145) L 03/24/18 11:34 BUN 35 mg/dL (6-20) H 03/24/18 11:34 Creatinine 1.68 mg/dL (0.70-1.30) H 03/24/18 11:34 Est GFR ( Amer) 51 (> 60) L 03/24/18 11:34 Est GFR (Non-Af Amer) 42 (> 60) L 03/24/18 11:34 Glucose 279 mg/dL (70-105) H 03/24/18 11:34 POC Glucose 368 mg/dL (70-99) H 03/24/18 08:58 Hemoglobin A1c 11.0 % (-5.6) H 03/23/18 09:47 Magnesium 1.3 mg/dL (1.6-2.6) L 03/24/18 07:51 Alkaline Phosphatase 175 Units/L (34-104) H 03/22/18 12:01 C-Reactive Protein 47 mg/L (Less than 10) H 03/23/18 09:47 Albumin 3.3 g/dL (3.5-5.7) L 03/22/18 12:01 Diabetes panel 03/24/18 03/24/18 Range/Units 00:33 11:34 Sodium 131 L 134 L (136-145) mEq/L Potassium 4.5 3.8 (3.5-5.1) mEq/L Chloride 95 L 98 (98-107) mEq/L Carbon Dioxide 26 29 (23-29) mEq/L BUN 38 H 35 H (6-20) mg/dL Creatinine 1.79 H 1.68 H (0.70-1.30) mg/dL Glucose 538 H* 279 H (70-105) mg/dL Calcium 8.4 L 8.6 (8.6-10.3) mg/dL Calcium panel 03/24/18 03/24/18 03/24/18 Range/Units 00:33 07:51 11:34 Calcium 8.4 L 8.6 (8.6-10.3) mg/dL Phosphorus 3.2 (2.7-4.5) mg/dL Pituitary panel 03/24/18 03/24/18 Range/Units 00:33 11:34 Sodium 131 L 134 L (136-145) mEq/L Potassium 4.5 3.8 (3.5-5.1) mEq/L Chloride 95 L 98 (98-107) mEq/L Carbon Dioxide 26 29 (23-29) mEq/L BUN 38 H 35 H (6-20) mg/dL Creatinine 1.79 H 1.68 H (0.70-1.30) mg/dL Glucose 538 H* 279 H (70-105) mg/dL Calcium 8.4 L 8.6 (8.6-10.3) mg/dL Adrenal panel 03/24/18 03/24/18 Range/Units 00:33 11:34 Sodium 131 L 134 L (136-145) mEq/L Potassium 4.5 3.8 (3.5-5.1) mEq/L Chloride 95 L 98 (98-107) mEq/L Carbon Dioxide 26 29 (23-29) mEq/L BUN 38 H 35 H (6-20) mg/dL Creatinine 1.79 H 1.68 H (0.70-1.30) mg/dL Glucose 538 H* 279 H (70-105) mg/dL Calcium 8.4 L 8.6 (8.6-10.3) mg/dL All other labs normal. - Attending Attestation patient seen and examined. I have reviewed all labs, imaging, and notes. I agree with the above assessment and plan and wish to add the following... cont antimocrobial per iD insulin gtt per primary team recommend endocrine consult all cellulitis; no evidence or real concern for abscess; still recommend US to evaluate no acute surgery; will cont to follow
[2018-03-24 12:16] LABS: Calcium 8.6 mg/dL (8.6-10.3); Potassium 3.8 mEq/L (3.5-5.1)
--- NOTE | 2018-03-24 13:11 | Internal Med Progress Note ---
Hospitalist Progress Note - Encounter Date of Encounter: 03/24/18 Time of Encounter: 07:30 - Subjective Interval History: he is on his bipap. does not wantto take his bipap off to speak to me. when ased if he has any SI or HI he shakes his head no when asked if he has pain he shakes his head no. he took his bipap off. he was inquiring about his elevated glucose level. i explained the new treatment plan to him he denies fever, chills, nausea, vomiting, diarrhea denies chest pain, SOB, palpitations - Exam Vitals: Temp Pulse Resp BP Pulse Ox 98.2 F 67 22 119/60 94 03/24/18 11:45 03/24/18 11:45 03/24/18 11:45 03/24/18 11:45 03/24/18 11:45 Exam: General: Patient is alert, oriented, no acute distress, morbidly obese Head: atraumatic, normocephalic, Eye: normal appearance, PERRL, no scleral icterus, no conjunctival injection ENT: mucous membranes moist, normal external ear exam Neck: normal inspection, trachea midline, full ROM, no carotid bruits Chest: normal inspection, symmetric chest rise Respiratory: Decreased breath sounds secondary to body habitus, no wheezing or crackles appreciated Cardiovascular: Distant heart sounds secondary to body habitus, Regular rate and rhythm. s1 and s2 No clicks, rubs, gallops, or murmors. Abdomen: Morbidly obese abdomen, he has a 24 cm x 24 cm area of erythema, warmth , small area of purulent drainage, foul-smelling, large area of induration . Bowel sounds present normoactive x-4 quadrants. Abdomen is soft,no Epigastric tenderness. No guarding or rebound. No organomegaly noted, musculoskeletal: Spontaneously moving all extremities. Left lower extremity edema (chronic - sleeps on the left side and cannot move duet to body habitus. Skin: warm, dry, intact. Neuro: Alert and oriented x4. Sensation light touch intact. Cranial nerves 2- 12 is intact. Not aphasic, Psych: Patient's affect is normal - Assessment and Plan (1) Cellulitis Current Visit: Yes Status: Acute Assessment and Plan: Large area approximately 24 x 24 cm and the left lower quadrant, with induration Due to body habitus and BMI of 72.3 he is unable to have CT of his abdomen performed Ultrasound of the area was ordered we will follow-up with the results on IV vancomycin and cefepime We will follow blood cx ID was consulted will follow recommendations surgery consulted will follow recommendations ESR, and CRP elevated Pain control with home medications Wound care consulted (2) Type 2 diabetes mellitus Current Visit: Yes Status: Acute Assessment and Plan: Uncontrolled, A1c on last admission was 11% On admission blood glucose 374 and continued to be in maru 400s despite 100 units of levamir Qam and 200 Qhs inaddition to sliding scale he is NPO started on insulin drip as per protocol FSQ1 Strict glucose monitoring endocrinology consult in the AM (3) Hyperosmolar nonketotic coma in diabetes Current Visit: Yes Status: Acute Assessment and Plan: Secondary to above, management as per above (4) Suicidal ideation Current Visit: Yes Status: Acute Assessment and Plan: on 1:1 sitter psych consulted on 03/23- was cleared by psych (5) CKD (chronic kidney disease) Current Visit: No Status: Chronic Assessment and Plan: Creatinine today is 1.63 which is around his baseline from last admission We will continue to monitor renal functions Dose antibiotics as per renal function Avoid nephrotoxic drugs We will hold off his Lasix until renal functions have improved Strict intake and output (6) RICK (obstructive sleep apnea) Current Visit: Yes Status: Acute Assessment and Plan: Continue with CPAP at night (7) Edema of left lower extremity Current Visit: Yes Status: Acute Assessment and Plan: DVT study of the lower extremity - poor study but not DVT visualized most likely depended edema. lasix on hold as CR is rising (8) Morbid obesity with BMI of 70 and over, adult Current Visit: Yes Status: Chronic Assessment and Plan: Nutrition consult NPO as he is in hyperosmolar state DVT Prophylaxis: heparin Sc - Time Spent with Patient Total time spent is greater than 50% in coordination of care (as documented) at patient's floor/unit and/or counseling patient: Plan of Care Discussed with: patient Internal Medicine: Result - Labs CBC & Chem 7: 03/24/18 00:33 03/24/18 11:34 Labs: Short CBC 03/24/18 Range/Units 00:33 WBC 7.4 (4.3-11.1) K/mcL Hgb 9.0 L (12.9-16.9) g/dL Hct 28.6 L (37.5-50.1) % Plt Count 256 (140-400) K/mcL Neutrophils # 5.3 (1.6-8.9) K/mcL BMP 03/24/18 03/24/18 00:33 11:34 Sodium 131 L 134 L Potassium 4.5 3.8 Chloride 95 L 98 Carbon Dioxide 26 29 BUN 38 H 35 H Creatinine 1.79 H 1.68 H Glucose 538 H* 279 H Calcium 8.4 L 8.6 - ABG Interpretation ABG results: PT/INR, D-dimer PT 12.0 Seconds (9.4-12.1) 03/22/18 12:01 Consult Discharge Plan - Plan [facility]errals: [facility] [Primary Care Provider] - (1) Cellulitis Qualifiers: Site of cellulitis: trunk Site of cellulitis of trunk: abdominal wall Qualified Code(s): L03.311 - Cellulitis of abdominal wall (2) Type 2 diabetes mellitus Qualifiers: Diabetes mellitus emt intermediate insulin use: with emt intermediate use Diabetes mellitus complication status: with neurologic complications Diabetes mellitus complication detail: with polyneuropathy Qualified Code(s): E11.42 - Type 2 diabetes mellitus with diabetic polyneuropathy; Z79.4 - residential (current) use of insulin (5) CKD (chronic kidney disease) Qualifiers: Chronic kidney disease stage: stage 3 (moderate) Qualified Code(s): N18.3 - Chronic kidney disease, stage 3 (moderate)
--- NOTE | 2018-03-24 13:20 | Consult Note ---
Date of Encounter: 03/24/18 Time of Encounter: 13:14 Assessment & Recommendation (1) Post traumatic seizure disorder Current visit: Yes Status: Acute Assessment & Recommendation: Client does not currently meet criteria for inpatient admission. Both client and his girlfriend state he is not suicidal. Recently started Wellbutrin. Would continue this medication for now as it still needs time to work. Already linked with services. Will sign off. Reconsult if needed. History of Present Illness Requesting Physician: Indy Bejarano MD Reason for consult: SI History of present illness: Mr. Arreola is a 57 year old male who was admitted for wound care. Client apparently endorsed SI to a [facility] provider and psych was consulted. There is no documentation of SI or mental health history in his records from this admission. Client states he has received terrible service from the [facility] and that he wrote an email to his provider from the [facility] stating he would kill himself before he would ever seek help from him again. Client adamantly denies he is suicidal. Girlfriend present and states the same thing. "He is not suicidal." Client does endorse a history of depression and PTSD from his years in the service but denies he has ever been at risk for taking his own life. States he is [employer]ism and considers it against his hoahaoism. Has taken Prozac in the past but had to come off of it due to elevated liver enzymes. Recently started on Wellbutrin but client states it is a new enough agent he is not yet sure how effective it will be. Has taken Xanax in the past for panic attacks but states he only needs to take it approx twice a year. Seems positive and future oriented. Bright affect. Joking with girlfriend when this conventional underwriter walked in. Does not present as severely depressed and both client and girlfriend state he is safe. CC: Indy Bejarano MD Past Med Surg Social Fam HX - Past Medical History Medical history: diabetes, hypertension, renal disease - Past Psychiatric History Psychiatric history: Reports: anxiety, depression Family psychiatric history: Unknown Family History of Suicide: Unknown - Social History Smoking Status: Never smoker Smokeless Tobacco Status: No Alcohol use: none Drug use: none - Family History Grandfather Hx Family Endocrine Disorder: Yes (DM) Medications & Allergies Nystatin POWDER [Nystop] 1 appl TP DAILY 03/12/18 [History] BuPROPion XL (24 HR) [Wellbutrin Xl] 300 mg PO DAILY #60 tab.er.24h 03/14/18 [Rx ] Calcitriol [Rocaltrol] 0.25 mcg PO 1200 #30 capsule 03/14/18 [Rx] Cyanocobalamin (B-12) [Vitamin B12] 1,000 mcg PO DAILY #30 tablet 03/14/18 [Rx] DULoxetine [Cymbalta] 60 mg PO DAILY #60 capsule. 03/14/18 [Rx] Fluticasone Propionate [24 Hour Allergy] 2 spray NS HS #1 spray.susp 03/14/18 [ Rx] MOM Conc [MILK OF MAGNESIA conc] 10 ml PO TUFR@0900 #100 ud.liq 03/14/18 [Rx] Omeprazole [PriLOSEC] 20 mg PO DAILY #30 capsule. 03/14/18 [Rx] Ondansetron ODT [Zofran ODT] 4 mg SL Q8HR PRN #10 tab.rapdis 03/14/18 [Rx] Polyethylene Glycol 3350 [MiraLAX] 17 gm PO DAILY #20 powd.pack 03/14/18 [Rx] Spironolactone [Aldactone] 75 mg PO 0800,1200 #180 tablet 03/14/18 [Rx] Tamsulosin [Flomax] 0.4 mg PO HS #30 capsule 03/14/18 [Rx] ALPRAZolam [Xanax 1 MG Tablet] 1 tab PO TID PRN 03/22/18 [History] Atenolol [Tenormin] 12.5 mg PO BID 03/22/18 [History] Atorvastatin Calcium 80 mg PO HS 03/22/18 [History] Bumetanide [Bumex] 1 mg PO 1200 03/22/18 [History] Bumetanide [Bumex] 2 mg PO QAM 03/22/18 [History] Insulin ASPART [NovoLOG] 0 unit SQ TIDWM 03/22/18 [History] Insulin Glargine,Hum.rec.anlog [Lantus Solostar] 100 unit SQ QAM 03/22/18 [ History] Insulin Glargine,Hum.rec.anlog [Lantus Solostar] 200 unit SQ QPM 03/22/18 [ History] Levothyroxine [Synthroid] 75 mcg PO QAM 03/22/18 [History] Lidocaine 2 patch TP Q24H 03/22/18 [History] Miconazole Powder 1 appl TP BID 03/22/18 [History] Sennosides/Docusate Sodium [Senna Plus] 4 tab PO DAILY PRN 03/22/18 [History] Morphine Sulfate [Arymo ER] 15 mg PO TID 03/23/18 [History] Oxycodone HCl/Acetaminophen [Percocet 5-325 mg Tablet] 1 tab PO Q12H PRN [History] 3 Allergy/AdvReac Type Severity Reaction Status Date / Time clindamycin Allergy Hives Verified 02/26/16 07:07 gabapentin [From Neurontin] Allergy See Verified 11/20/15 20:15 Comments Hydromorphone [From Dilaudid] Allergy See Verified 11/20/15 20:15 Comments ketorolac [From Toradol] Allergy See Verified 11/20/15 20:15 Comments Review of Systems Constitutional: Denies: fever, chills, weakness, weight change Eyes: Denies: eye pain, vision change Ears, Nose, Throat: Denies: ear pain, throat pain, dental pain, hearing loss, congestion Cardiovascular: Denies: chest pain, palpitations, dyspnea on exertion Respiratory: Denies: cough, dyspnea, wheezes Gastrointestinal: Denies: abdominal pain, nausea, vomiting, diarrhea, constipation Genitourinary male: Denies: urgency, dysuria, frequency, genital lesions Musculoskeletal: Reports: other Integumentary: Reports: lesions Neurological: Denies: headache, weakness, numbness, memory loss Endocrine: Denies: fatigue, heat or cold intolerance Hematologic/Lymphatic: Denies: easy bruising, lymphadenopathy Allergic/Immunologic: Denies: urticaria, itchy eyes Psychiatry Exam - Constitutional Vitals: Temp Pulse Resp BP Pulse Ox 98.2 F 67 22 119/60 94 03/24/18 11:45 03/24/18 11:45 03/24/18 11:45 03/24/18 11:45 03/24/18 11:45 General appearance: obese - Musculoskeletal Gait: other Station: relaxed Strength & Tone: normal for patient - Psychiatric Patient Orientation: Yes Person Level of alertness: Alert Behavior: calm, cooperative Psychomotor activity: Normal Eye Contact: Maintains Eye Contact Mood Description: Euthymic/stable Affect description: congruent with mood, full range Speech Volume: Normal Speech pattern: normal rate, normal rhythm, normal tone, fluent, spontaneous Language & Vocabulary: consistent with education Thought Process: Linear, Goal Oriented Thought Content: No Suicidal ideation, No Homicidal ideation, No Overt delusions Perceptual Disturbances: No Auditory hallucinations, No Visual hallucinations Attention Span Ability: Capable of Focused Attention Memory Description: Grossly Intact Patient Reliability: Reliable Historian Fund of knowledge: Yes abstraction ability, Yes aware of current events Intelligence Estimate: Average Judgment: Limited Insight: Partial Results - Labs Labs: Laboratory Last Values WBC 7.4 K/mcL (4.3-11.1) 03/24/18 00:33 RBC 3.28 M/mcL (4.19-5.50) L 03/24/18 00:33 Hgb 9.0 g/dL (12.9-16.9) L 03/24/18 00:33 Hct 28.6 % (37.5-50.1) L 03/24/18 00:33 MCV 87.2 fL (83.0-100.0) 03/24/18 00:33 MCH 27.4 pg (28.0-33.3) L 03/24/18 00:33 MCHC 31.5 g/dL (31.6-35.5) L 03/24/18 00:33 RDW 15.5 % (11.5-14.5) H 03/24/18 00:33 Plt Count 256 K/mcL (140-400) 03/24/18 00:33 MPV 10.3 fL (9.4-12.4) 03/24/18 00:33 Immature Gran % 0.5 % (0-4) 03/24/18 00:33 Seg Neutrophils % 71.5 % 03/24/18 00:33 Lymphocytes % 16.3 % 03/24/18 00:33 Monocytes % 6.7 % 03/24/18 00:33 Eosinophils % 4.5 % 03/24/18 00:33 Basophils % 0.5 % 03/24/18 00:33 Neutrophils # 5.3 K/mcL (1.6-8.9) 03/24/18 00:33 Lymphocytes # 1.2 K/mcL (0.6-4.6) 03/24/18 00:33 Monocytes # 0.5 K/mcL (0.0-1.3) 03/24/18 00:33 Eosinophils # 0.3 K/mcL (0.0-0.6) 03/24/18 00:33 Basophils # 0.0 K/mcL (0.0-0.2) 03/24/18 00:33 ESR 98 mm/hr (0-10) H 03/23/18 09:47 PT 12.0 Seconds (9.4-12.1) 03/22/18 12:01 INR 1.1 03/22/18 12:01 VBG pH 7.31 pH Units (7.32-7.42) L 03/24/18 08:20 VBG pCO2 58 mmHg (41-51) H 03/24/18 08:20 VBG pO2 168 mmHg (25-50) H 03/24/18 08:20 VBG HCO3 29 mEq/L (21-27) H 03/24/18 08:20 Sodium 134 mEq/L (136-145) L 03/24/18 11:34 Potassium 3.8 mEq/L (3.5-5.1) 03/24/18 11:34 Chloride 98 mEq/L (98-107) 03/24/18 11:34 Carbon Dioxide 29 mEq/L (23-29) 03/24/18 11:34 BUN 35 mg/dL (6-20) H 03/24/18 11:34 Creatinine 1.68 mg/dL (0.70-1.30) H 03/24/18 11:34 Est GFR ( Amer) 51 (> 60) L 03/24/18 11:34 Est GFR (Non-Af Amer) 42 (> 60) L 03/24/18 11:34 BUN/Creatinine Ratio 21 (6-26) 03/24/18 11:34 Glucose 279 mg/dL (70-105) H 03/24/18 11:34 POC Glucose 368 mg/dL (70-99) H 03/24/18 08:58 Est Mean Plasma Glucose 269 mg/dl 03/23/18 09:47 Hemoglobin A1c 11.0 % (-5.6) H 03/23/18 09:47 Calculated Osmolality 296 (280-300) 03/24/18 11:34 Calcium 8.6 mg/dL (8.6-10.3) 03/24/18 11:34 Phosphorus 3.2 mg/dL (2.7-4.5) 03/24/18 07:51 Magnesium 1.3 mg/dL (1.6-2.6) L 03/24/18 07:51 Total Bilirubin 0.5 mg/dL (0.3-1.0) 03/22/18 12:01 AST 18 Units/L (13-39) 03/22/18 12:01 ALT 16 Units/L (7-52) 03/22/18 12:01 Alkaline Phosphatase 175 Units/L (34-104) H 03/22/18 12:01 C-Reactive Protein 47 mg/L (Less than 10) H 03/23/18 09:47 Serum Total Protein 6.4 g/dL (6.4-8.9) 03/22/18 12:01 Albumin 3.3 g/dL (3.5-5.7) L 03/22/18 12:01 Globulin 3.1 g/dL (2.4-3.5) 03/22/18 12:01 Albumin/Globulin Ratio 1.1 (1.1-2.2) 03/22/18 12:01 Beta-Hydroxybutyric Acd < 0.10 mmol/L (0.02-0.27) 03/23/18 09:47 Consult Discharge Plan - Plan [facility]errals: [facility] [Primary Care Provider] -
[2018-03-24] MEDS: Miconazole 2% ointment 114 GM TUBE TP SCH ×2 (14:19→21:29)
[2018-03-24 17:08] LABS: Calcium 8.4 mg/dL (8.6-10.3); Potassium 3.9 mEq/L (3.5-5.1)
[2018-03-24] MEDS ORDERED: Insulin DETEMIR 100 UNIT/ML X5UNITS SQ STA (17:19)
[2018-03-24] MEDS ORDERED: D5% in Water 1,000 ML IVC PRN (17:31)
[2018-03-24] MEDS ORDERED: Dextrose Gel 15 GM/37.5 ML TUBE PO PRN ×2 (17:31)
--- NOTE | 2018-03-24 17:52 | Event Note ---
Date of Encounter: 03/24/18 Time of Encounter: 17:49 labs reviewed blood glucose improved with insulin drip to 175 ADA diet started will bridge him with 100 units of levamir ( half of his home dose). nurse notified to discontinue insulin drip 1 hour after he eats dinner. high dose sliding scale ordered levemir 100 units ( the 2nd half of his home PM dose ) was orderd with holding parameters ( hold if FS <250 and cover with sliding scale) continue FS Q1H for 6 more hours will continue close monitoring of glucose discussed with nurse and pharmacists
[2018-03-24] MEDS ORDERED: Insulin DETEMIR 100 UNIT/ML X5UNITS SQ SCH ×4 (21:00)
[2018-03-24 21:14] LABS: Calcium 8.4 mg/dL (8.6-10.3); Potassium 4.3 mEq/L (3.5-5.1)
[2018-03-24] MEDS ORDERED: Insulin DETEMIR 100 UNIT/ML X5UNITS SQ ONE (22:00)
[2018-03-24] MEDS: Fluticasone Propionate Nasal 50 MCG/SPRAY BOTTLE NS SCH (22:38)
[2018-03-25 05:32] LABS: Basophils % 0.5 %; Eosinophils # 0.6 K/mcL (0.0-0.6); Eosinophils % 7.1 %; Hematocrit 28.6 % (37.5-50.1); Immature Granulocytes % 0.6 % (0-4); Lymphocytes # 1.7 K/mcL (0.6-4.6); Lymphocytes % 21.6 %; Mean Corpuscular HGB Conc 31.5 g/dL (31.6-35.5); Mean Corpuscular Hemoglobin 27.9 pg (28.0-33.3); Mean Corpuscular Volume 88.5 fL (83.0-100.0); Mean Platelet Volume 9.9 fL (9.4-12.4); Monocytes # 0.7 K/mcL (0.0-1.3); Monocytes % 9.1 %; Neutrophils # 4.9 K/mcL (1.6-8.9); Platelet Count 243 K/mcL (140-400); Red Blood Count 3.23 M/mcL (4.19-5.50); Red Cell Distribution Width 15.7 % (11.5-14.5); Segmented Neutrophils % 61.1 %
[2018-03-25] MEDS: *HR* Heparin 5,000 UNIT/ML VIAL SQ SCH ×3 (06:13→21:34)
[2018-03-25] MEDS: Cefepime HCl 2,000 MG in 0.9 % Sodium Chloride Mini Bag 100 ML IVPB SCH ×2 (06:18→16:52)
[2018-03-25 06:43] LABS: Calcium 8.1 mg/dL (8.6-10.3); Potassium 4.2 mEq/L (3.5-5.1)
[2018-03-25] MEDS: *HR* Morphine Sulfate SR (12 HR) 15 MG TABLET.ER PO SCH ×3 (08:33→21:29)
[2018-03-25] MEDS: Bumetanide 1 MG TABLET PO SCH ×2 (08:35→11:59)
[2018-03-25] MEDS: BuPROPion XL (24 HR) 150 MG TABLET PO SCH (08:35)
[2018-03-25] MEDS: Cyanocobalamin (B-12) 1,000 MCG TABLET PO SCH (08:35)
[2018-03-25] MEDS: Insulin LISPRO 300 UNITS/3 ML VIAL SQ SCH ×7 (08:37→21:27)
[2018-03-25] MEDS: Insulin DETEMIR 100 UNIT/ML X5UNITS SQ SCH ×2 (08:38→21:28)
[2018-03-25] MEDS: Miconazole 2% ointment 114 GM TUBE TP SCH ×2 (08:52→21:32)
[2018-03-25] MEDS: MICONAZOLE NITRATE 57 GM TUBE TP SCH (08:53)
[2018-03-25] MEDS: Nystatin POWDER 30 GM BOTTLE TP SCH ×2 (08:53→21:32)
[2018-03-25] MEDS: Spironolactone 25 MG TABLET PO SCH ×2 (09:02→15:17)
--- NOTE | 2018-03-25 09:24 | Internal Med Progress Note ---
Hospitalist Progress Note - Encounter Date of Encounter: 03/25/18 Time of Encounter: 09:23 - Subjective Interval History: he is feeling better has no SI or HI reports FS has been elevated and that he is on U500 70 units TID befoire meals at home. he denies fever, chills, nausea, vomiting, diarrhea denies chest pain, SOB, palpitations - Exam Vitals: Temp Pulse Resp BP Pulse Ox 98.5 F 63 18 125/59 96 03/25/18 07:08 03/25/18 07:08 03/25/18 07:08 03/25/18 07:08 03/25/18 07:08 Exam: General: Patient is alert, oriented, no acute distress, morbidly obese Head: atraumatic, normocephalic, Eye: normal appearance, PERRL, no scleral icterus, no conjunctival injection ENT: mucous membranes moist, normal external ear exam Neck: normal inspection, trachea midline, full ROM, no carotid bruits Chest: normal inspection, symmetric chest rise Respiratory: Decreased breath sounds secondary to body habitus, no wheezing or crackles appreciated Cardiovascular: Distant heart sounds secondary to body habitus, Regular rate and rhythm. s1 and s2 No clicks, rubs, gallops, or murmors. Abdomen: Morbidly obese abdomen, he has a 24 cm x 24 cm area of erythema, warmth , small area of purulent drainage, foul-smelling, large area of induration . Bowel sounds present normoactive x-4 quadrants. Abdomen is soft,no Epigastric tenderness. No guarding or rebound. No organomegaly noted, musculoskeletal: Spontaneously moving all extremities. Left lower extremity edema (chronic - sleeps on the left side and cannot move duet to body habitus. Skin: warm, dry, intact. Neuro: Alert and oriented x4. Sensation light touch intact. Cranial nerves 2- 12 is intact. Not aphasic, Psych: Patient's affect is normal - Assessment and Plan (1) Cellulitis Current Visit: Yes Status: Acute Assessment and Plan: Large area approximately 24 x 24 cm and the left lower quadrant, with induration Due to body habitus and BMI of 72.3 he is unable to have CT of his abdomen performed Ultrasound of the area was ordered we will follow-up with the results on IV vancomycin and cefepime We will follow blood cx wound cx are negative ID was consulted recommendations appreciated surgery consulted recommendations appreciated ESR, and CRP elevated Pain control with home medications Wound care consulted (2) Type 2 diabetes mellitus Current Visit: Yes Status: Acute Assessment and Plan: Uncontrolled, A1c on last admission was 11% off insulin drip now Started back on Levemir 200 daily at bedtime and 100 every morning Started on high-dose sliding scale We will add additional 15 units of insulin before meals Strict glucose monitoring endocrinology consult in the AM (3) Hyperosmolar nonketotic coma in diabetes Current Visit: Yes Status: Acute Assessment and Plan: Secondary to above, management as per above Resolved Beta hydroxybutyrate is negative (4) CKD (chronic kidney disease) Current Visit: No Status: Chronic Assessment and Plan: Creatinine today is 1.63 which is around his baseline from last admission We will continue to monitor renal functions Dose antibiotics as per renal function Avoid nephrotoxic drugs We will hold off his Lasix until renal functions have improved Strict intake and output (5) RICK (obstructive sleep apnea) Current Visit: Yes Status: Acute Assessment and Plan: Continue with CPAP at night (6) Edema of left lower extremity Current Visit: Yes Status: Acute Assessment and Plan: DVT study of the lower extremity - poor study but not DVT visualized most likely depended edema. lasix on hold as CR is rising (7) Morbid obesity with BMI of 70 and over, adult Current Visit: Yes Status: Chronic Assessment and Plan: Nutrition consulted ADA (8) Suicidal ideation Current Visit: Yes Status: Acute Assessment and Plan: psych consulted on 03/23- was cleared by psych Currently has no SI or HI DVT Prophylaxis: Heparin subcutaneous - Time Spent with Patient Total time spent is greater than 50% in coordination of care (as documented) at patient's floor/unit and/or counseling patient: Plan of Care Discussed with: patient Internal Medicine: Result - Labs CBC & Chem 7: 03/25/18 05:04 03/25/18 05:04 Labs: Short CBC 03/25/18 Range/Units 05:04 WBC 7.9 (4.3-11.1) K/mcL Hgb 9.0 L (12.9-16.9) g/dL Hct 28.6 L (37.5-50.1) % Plt Count 243 (140-400) K/mcL Neutrophils # 4.9 (1.6-8.9) K/mcL BMP 0803/24/18 03/24/18 11:34 16:34 20:42 Sodium 134 L 134 L 133 L Potassium 3.8 3.9 4.3 Chloride 98 99 99 Carbon Dioxide 29 25 24 BUN 35 H 35 H 34 H Creatinine 1.68 H 1.63 H 1.60 H Glucose 279 H 195 H 235 H Calcium 8.6 8.4 L 8.4 L 03/25/18 05:04 Sodium 131 L Potassium 4.2 Chloride 97 L Carbon Dioxide 24 BUN 34 H Creatinine 1.63 H Glucose 380 H Calcium 8.1 L - ABG Interpretation ABG results: PT/INR, D-dimer PT 12.0 Seconds (9.4-12.1) 03/22/18 12:01 Consult Discharge Plan - Plan [facility]errals: [facility] [Primary Care Provider] - (1) Cellulitis Qualifiers: Site of cellulitis: trunk Site of cellulitis of trunk: abdominal wall Qualified Code(s): L03.311 - Cellulitis of abdominal wall (2) Type 2 diabetes mellitus Qualifiers: Diabetes mellitus halfway insulin use: with halfway use Diabetes mellitus complication status: with neurologic complications Diabetes mellitus complication detail: with polyneuropathy Qualified Code(s): E11.42 - Type 2 diabetes mellitus with diabetic polyneuropathy; Z79.4 - care home (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
--- NOTE | 2018-03-25 11:00 | General Surgery Progress Note ---
<Delfina Luo E - Last Filed: 03/25/18 10:56> Date of Encounter: 03/25/18 Time of Encounter: 10:56 - Assessment and Plan (1) Cellulitis Current Visit: Yes Status: Acute Continue with antimicrobial therapy as per ID No surgical intervention at this time Continue wound dressing with antifungal cream as described by ID Surgery will sign off at this time, thank you for involving us in this patient' s care, please feel free to contact us with any questions. Qualifiers: Site of cellulitis: trunk Site of cellulitis of trunk: abdominal wall Qualified Code(s): L03.311 - Cellulitis of abdominal wall Subjective Patient reports: no new complaints (Patient is feeling some better today. ) Objective Vital Signs - Last 8 Hours Temp Pulse Resp BP Pulse Ox 03/25/18 07:08 98.5 F 63 18 125/59 96 03/25/18 03:00 98.4 F 66 18 148/62 96 Intake and Output 03/24/18 03/25/18 03/25/18 23:59 07:59 15:59 Intake Total 100 / 100 240 / 240 Output Total 375 / 375 150 / 150 Balance -275 / -275 -150 / -150 240 / 240 Intake: IV Fluids 100 / 100 Maxipime 2,000 MG In 0.9 % 100 / 100 Sodium Chloride (Mini-Bag +) 100 ML @ 200 mls/hr IVPB Q12HR [facility] Rx#:[id number] Oral 240 / 240 Output: Urine 375 / 375 150 / 150 Other: Meal Breakfast Percent of Meal Consumed 50% Stool Size Smear Stool Color Brown # Urine Diapers 1 # Bowel Movements 1 Blood Glucose* 0 377 - General physical appearance well developed, well nourished, obese - Respiratory normal expansion, normal respiratory effort, clear to auscultation - Cardiovascular Cardiovascular exam: Present: RRR, no murmurs/rubs/gallops - Abdomen Abdomen: Present: bowel sounds present, soft, non tender Additional Comments: area approximately 20cm by 15 cm or induration, center is emacerated adn draining a small amount of clear fluid. No sign of abscess or necrotic tissue. - Psychiatric oriented to time, oriented to person, oriented to place - Labs 03/25/18 05:04 03/25/18 05:04 Diabetes panel 03/24/18 03/24/18 03/24/18 Range/Units 11:34 16:34 20:42 Sodium 134 L 134 L 133 L (136-145) mEq/L Potassium 3.8 3.9 4.3 (3.5-5.1) mEq/L Chloride 98 99 99 (98-107) mEq/L Carbon Dioxide 29 25 24 (23-29) mEq/L BUN 35 H 35 H 34 H (6-20) mg/dL Creatinine 1.68 H 1.63 H 1.60 H (0.70-1.30) mg/dL Glucose 279 H 195 H 235 H (70-105) mg/dL Calcium 8.6 8.4 L 8.4 L (8.6-10.3) mg/dL 03/25/18 Range/Units 05:04 Sodium 131 L (136-145) mEq/L Potassium 4.2 (3.5-5.1) mEq/L Chloride 97 L (98-107) mEq/L Carbon Dioxide 24 (23-29) mEq/L BUN 34 H (6-20) mg/dL Creatinine 1.63 H (0.70-1.30) mg/dL Glucose 380 H (70-105) mg/dL Calcium 8.1 L (8.6-10.3) mg/dL Calcium panel 03/24/18 03/24/18 03/24/18 Range/Units 11:34 16:34 20:42 Calcium 8.6 8.4 L 8.4 L (8.6-10.3) mg/dL 03/25/18 Range/Units 05:04 Calcium 8.1 L (8.6-10.3) mg/dL Pituitary panel 03/24/18 03/24/18 03/24/18 Range/Units 11:34 16:34 20:42 Sodium 134 L 134 L 133 L (136-145) mEq/L Potassium 3.8 3.9 4.3 (3.5-5.1) mEq/L Chloride 98 99 99 (98-107) mEq/L Carbon Dioxide 29 25 24 (23-29) mEq/L BUN 35 H 35 H 34 H (6-20) mg/dL Creatinine 1.68 H 1.63 H 1.60 H (0.70-1.30) mg/dL Glucose 279 H 195 H 235 H (70-105) mg/dL Calcium 8.6 8.4 L 8.4 L (8.6-10.3) mg/dL 03/25/18 Range/Units 05:04 Sodium 131 L (136-145) mEq/L Potassium 4.2 (3.5-5.1) mEq/L Chloride 97 L (98-107) mEq/L Carbon Dioxide 24 (23-29) mEq/L BUN 34 H (6-20) mg/dL Creatinine 1.63 H (0.70-1.30) mg/dL Glucose 380 H (70-105) mg/dL Calcium 8.1 L (8.6-10.3) mg/dL Adrenal panel 03/24/18 03/24/18 03/24/18 Range/Units 11:34 16:34 20:42 Sodium 134 L 134 L 133 L (136-145) mEq/L Potassium 3.8 3.9 4.3 (3.5-5.1) mEq/L Chloride 98 99 99 (98-107) mEq/L Carbon Dioxide 29 25 24 (23-29) mEq/L BUN 35 H 35 H 34 H (6-20) mg/dL Creatinine 1.68 H 1.63 H 1.60 H (0.70-1.30) mg/dL Glucose 279 H 195 H 235 H (70-105) mg/dL Calcium 8.6 8.4 L 8.4 L (8.6-10.3) mg/dL 03/25/18 Range/Units 05:04 Sodium 131 L (136-145) mEq/L Potassium 4.2 (3.5-5.1) mEq/L Chloride 97 L (98-107) mEq/L Carbon Dioxide 24 (23-29) mEq/L BUN 34 H (6-20) mg/dL Creatinine 1.63 H (0.70-1.30) mg/dL Glucose 380 H (70-105) mg/dL Calcium 8.1 L (8.6-10.3) mg/dL Consult Discharge Plan - Plan [facility]errals: [facility] Care Provider[facility] - <Aman Randle - Last Filed: 03/25/18 12:00> Date of Encounter: 03/25/18 Objective Vital Signs - Last 8 Hours Temp Pulse Resp BP Pulse Ox 03/25/18 11:10 98.5 F 62 19 116/63 96 03/25/18 07:08 98.5 F 63 18 125/59 96 Intake and Output 03/24/18 03/25/18 03/25/18 23:59 07:59 15:59 Intake Total 100 / 100 240 / 240 Output Total 375 / 375 150 / 150 Balance -275 / -275 -150 / -150 240 / 240 Intake: IV Fluids 100 / 100 Maxipime 2,000 MG In 0.9 % 100 / 100 Sodium Chloride (Mini-Bag +) 100 ML @ 200 mls/hr IVPB Q12HR [facility] Rx#:[id number] Oral 240 / 240 Output: Urine 375 / 375 150 / 150 Other: Meal Breakfast Percent of Meal Consumed 50% Stool Size Smear Stool Color Brown # Urine Diapers 1 # Bowel Movements 1 Blood Glucose* 0 377 391 - Labs 03/25/18 05:04 03/25/18 05:04 Diabetes panel 03/24/18 03/24/18 03/24/18 Range/Units 11:34 16:34 20:42 Sodium 134 L 134 L 133 L (136-145) mEq/L Potassium 3.8 3.9 4.3 (3.5-5.1) mEq/L Chloride 98 99 99 (98-107) mEq/L Carbon Dioxide 29 25 24 (23-29) mEq/L BUN 35 H 35 H 34 H (6-20) mg/dL Creatinine 1.68 H 1.63 H 1.60 H (0.70-1.30) mg/dL Glucose 279 H 195 H 235 H (70-105) mg/dL Calcium 8.6 8.4 L 8.4 L (8.6-10.3) mg/dL 03/25/18 Range/Units 05:04 Sodium 131 L (136-145) mEq/L Potassium 4.2 (3.5-5.1) mEq/L Chloride 97 L (98-107) mEq/L Carbon Dioxide 24 (23-29) mEq/L BUN 34 H (6-20) mg/dL Creatinine 1.63 H (0.70-1.30) mg/dL Glucose 380 H (70-105) mg/dL Calcium 8.1 L (8.6-10.3) mg/dL Calcium panel 03/24/18 03/24/18 03/24/18 Range/Units 11:34 16:34 20:42 Calcium 8.6 8.4 L 8.4 L (8.6-10.3) mg/dL 03/25/18 Range/Units 05:04 Calcium 8.1 L (8.6-10.3) mg/dL Pituitary panel 03/24/18 03/24/18 03/24/18 Range/Units 11:34 16:34 20:42 Sodium 134 L 134 L 133 L (136-145) mEq/L Potassium 3.8 3.9 4.3 (3.5-5.1) mEq/L Chloride 98 99 99 (98-107) mEq/L Carbon Dioxide 29 25 24 (23-29) mEq/L BUN 35 H 35 H 34 H (6-20) mg/dL Creatinine 1.68 H 1.63 H 1.60 H (0.70-1.30) mg/dL Glucose 279 H 195 H 235 H (70-105) mg/dL Calcium 8.6 8.4 L 8.4 L (8.6-10.3) mg/dL 03/25/18 Range/Units 05:04 Sodium 131 L (136-145) mEq/L Potassium 4.2 (3.5-5.1) mEq/L Chloride 97 L (98-107) mEq/L Carbon Dioxide 24 (23-29) mEq/L BUN 34 H (6-20) mg/dL Creatinine 1.63 H (0.70-1.30) mg/dL Glucose 380 H (70-105) mg/dL Calcium 8.1 L (8.6-10.3) mg/dL Adrenal panel 03/24/18 03/24/18 03/24/18 Range/Units 11:34 16:34 20:42 Sodium 134 L 134 L 133 L (136-145) mEq/L Potassium 3.8 3.9 4.3 (3.5-5.1) mEq/L Chloride 98 99 99 (98-107) mEq/L Carbon Dioxide 29 25 24 (23-29) mEq/L BUN 35 H 35 H 34 H (6-20) mg/dL Creatinine 1.68 H 1.63 H 1.60 H (0.70-1.30) mg/dL Glucose 279 H 195 H 235 H (70-105) mg/dL Calcium 8.6 8.4 L 8.4 L (8.6-10.3) mg/dL 03/25/18 Range/Units 05:04 Sodium 131 L (136-145) mEq/L Potassium 4.2 (3.5-5.1) mEq/L Chloride 97 L (98-107) mEq/L Carbon Dioxide 24 (23-29) mEq/L BUN 34 H (6-20) mg/dL Creatinine 1.63 H (0.70-1.30) mg/dL Glucose 380 H (70-105) mg/dL Calcium 8.1 L (8.6-10.3) mg/dL - Attending Attestation patient seen and examined. i have reviewed all labs, imaging, and notes. i agree with the above assessment and plan
[2018-03-25] MEDS: Fluticasone Propionate Nasal 50 MCG/SPRAY BOTTLE NS SCH (21:32)
[2018-03-26] MEDS: Cefepime HCl 2,000 MG in 0.9 % Sodium Chloride Mini Bag 100 ML IVPB SCH ×2 (05:23→17:11)
[2018-03-26] MEDS: *HR* Heparin 5,000 UNIT/ML VIAL SQ SCH ×4 (05:24→21:39)
[2018-03-26 06:44] LABS: Basophils % 0.6 %; Eosinophils # 0.5 K/mcL (0.0-0.6); Eosinophils % 6.7 %; Hematocrit 28.4 % (37.5-50.1); Immature Granulocytes % 0.7 % (0-4); Lymphocytes # 1.5 K/mcL (0.6-4.6); Lymphocytes % 20.4 %; Mean Corpuscular HGB Conc 31.7 g/dL (31.6-35.5); Mean Corpuscular Hemoglobin 27.6 pg (28.0-33.3); Mean Corpuscular Volume 87.1 fL (83.0-100.0); Mean Platelet Volume 10.4 fL (9.4-12.4); Monocytes # 0.7 K/mcL (0.0-1.3); Monocytes % 9.2 %; Neutrophils # 4.5 K/mcL (1.6-8.9); Nucleated Red Blood Cells 0.3 /100 WBC (0); Platelet Count 252 K/mcL (140-400); Red Blood Count 3.26 M/mcL (4.19-5.50); Red Cell Distribution Width 15.6 % (11.5-14.5); Segmented Neutrophils % 62.4 %
[2018-03-26 07:00] LABS: Calcium 8.5 mg/dL (8.6-10.3); Potassium 4.5 mEq/L (3.5-5.1)
[2018-03-26 07:57] LABS: Platelet Estimate Normal (Normal)
[2018-03-26] MEDS: BuPROPion XL (24 HR) 150 MG TABLET PO SCH (08:47)
[2018-03-26] MEDS: Spironolactone 25 MG TABLET PO SCH ×2 (08:47→13:07)
[2018-03-26] MEDS: Cyanocobalamin (B-12) 1,000 MCG TABLET PO SCH (08:48)
[2018-03-26] MEDS: Bumetanide 1 MG TABLET PO SCH ×2 (08:50→13:08)
[2018-03-26] MEDS: *HR* Morphine Sulfate SR (12 HR) 15 MG TABLET.ER PO SCH ×2 (08:51→17:11)
[2018-03-26] MEDS: Insulin DETEMIR 100 UNIT/ML X5UNITS SQ SCH ×2 (08:53→21:54)
[2018-03-26] MEDS: Insulin LISPRO 300 UNITS/3 ML VIAL SQ SCH ×7 (08:54→21:55)
[2018-03-26] MEDS: Miconazole 2% ointment 114 GM TUBE TP SCH ×2 (10:00→21:41)
[2018-03-26] MEDS: Nystatin POWDER 30 GM BOTTLE TP SCH ×2 (10:00→21:47)
--- NOTE | 2018-03-26 15:40 | Internal Med Progress Note ---
Hospitalist Progress Note - Encounter Date of Encounter: 03/26/18 Time of Encounter: 15:37 - Subjective Interval History: he is feeling better has no SI or HI reports he would like to sign out AMA. i discussed with his that he has infection and ID is following. I discussed with his that he would need his THERAPY COORDINATOR reinstated before he goes home and CM and SW are on board he denies fever, chills, nausea, vomiting, diarrhea denies chest pain, SOB, palpitations - Exam Vitals: Temp Pulse Resp BP Pulse Ox 98.0 F 64 18 115/58 98 03/26/18 11:42 03/26/18 13:00 03/26/18 11:42 03/26/18 11:42 03/26/18 11:42 Exam: General: Patient is alert, oriented, no acute distress, morbidly obese Head: atraumatic, normocephalic, Eye: normal appearance, PERRL, no scleral icterus, no conjunctival injection ENT: mucous membranes moist, normal external ear exam Neck: normal inspection, trachea midline, full ROM, no carotid bruits Chest: normal inspection, symmetric chest rise Respiratory: Decreased breath sounds secondary to body habitus, no wheezing or crackles appreciated Cardiovascular: Distant heart sounds secondary to body habitus, Regular rate and rhythm. s1 and s2 No clicks, rubs, gallops, or murmors. Abdomen: Morbidly obese abdomen, he has a 24 cm x 24 cm area of erythema, warmth , small area of purulent drainage, foul-smelling, large area of induration . Bowel sounds present normoactive x-4 quadrants. Abdomen is soft,no Epigastric tenderness. No guarding or rebound. No organomegaly noted, musculoskeletal: Spontaneously moving all extremities. Left lower extremity edema (chronic - sleeps on the left side and cannot move duet to body habitus. Skin: warm, dry, intact. Neuro: Alert and oriented x4. Sensation light touch intact. Cranial nerves 2- 12 is intact. Not aphasic, Psych: Patient's affect is normal - Assessment and Plan (1) Cellulitis Current Visit: Yes Status: Acute Assessment and Plan: Large area approximately 24 x 24 cm and the left lower quadrant, with induration Due to body habitus and BMI of 72.3 he is unable to have CT of his abdomen performed Ultrasound of the area was ordered we will follow-up with the results on IV vancomycin and cefepime We will follow blood cx wound cx are negative ID was consulted recommendations appreciated surgery consulted recommendations appreciated ESR, and CRP elevated Pain control with home medications Wound care consulted (2) Type 2 diabetes mellitus Current Visit: Yes Status: Acute Assessment and Plan: Uncontrolled, A1c on last admission was 11% off insulin drip now Started back on Levemir 200 daily at bedtime and 100 every morning Started on high-dose sliding scale as he was [facility]ist obtained medication list on Lispro 20 units TIDWM Strict glucose monitoring consider endocrinology consult (3) Hyperosmolar nonketotic coma in diabetes Current Visit: Yes Status: Acute Assessment and Plan: Secondary to above, management as per above Resolved Beta hydroxybutyrate is negative (4) CKD (chronic kidney disease) Current Visit: No Status: Chronic Assessment and Plan: Creatinine today is 1.63 which is around his baseline from last admission We will continue to monitor renal functions Dose antibiotics as per renal function Avoid nephrotoxic drugs We will hold off his Lasix until renal functions have improved Strict intake and output (5) RICK (obstructive sleep apnea) Current Visit: Yes Status: Acute Assessment and Plan: Continue with CPAP at night (6) Edema of left lower extremity Current Visit: Yes Status: Acute Assessment and Plan: DVT study of the lower extremity - poor study but not DVT visualized most likely depended edema. lasix on hold as CR is rising (7) Morbid obesity with BMI of 70 and over, adult Current Visit: Yes Status: Chronic Assessment and Plan: Nutrition consulted ADA (8) Suicidal ideation Current Visit: Yes Status: Acute Assessment and Plan: psych consulted on 03/23- was cleared by psych Currently has no SI or HI DVT Prophylaxis: as above - Time Spent with Patient Total time spent is greater than 50% in coordination of care (as documented) at patient's floor/unit and/or counseling patient: Plan of Care Discussed with: patient Internal Medicine: Result - Labs CBC & Chem 7: 03/26/18 05:45 03/26/18 05:45 Labs: Short CBC 03/26/18 Range/Units 05:45 WBC 7.2 (4.3-11.1) K/mcL Hgb 9.0 L (12.9-16.9) g/dL Hct 28.4 L (37.5-50.1) % Plt Count 252 (140-400) K/mcL Neutrophils # 4.5 (1.6-8.9) K/mcL BMP 03/26/18 05:45 Sodium 132 L Potassium 4.5 Chloride 97 L Carbon Dioxide 28 BUN 37 H Creatinine 1.63 H Glucose 340 H Calcium 8.5 L - ABG Interpretation ABG results: PT/INR, D-dimer PT 12.0 Seconds (9.4-12.1) 03/22/18 12:01 Consult Discharge Plan - Plan [facility]errals: [facility]Primary Care Provider[facility] - 04/04/18 11:15 am (1) Cellulitis Qualifiers: Site of cellulitis: trunk Site of cellulitis of trunk: abdominal wall Qualified Code(s): L03.311 - Cellulitis of abdominal wall (2) Type 2 diabetes mellitus Qualifiers: Diabetes mellitus terminal gauger insulin use: with terminal gauger use Diabetes mellitus complication status: with neurologic complications Diabetes mellitus complication detail: with polyneuropathy Qualified Code(s): E11.42 - Type 2 diabetes mellitus with diabetic polyneuropathy; Z79.4 - 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
[2018-03-26] MEDS: Fluticasone Propionate Nasal 50 MCG/SPRAY BOTTLE NS SCH (21:47)
--- NOTE | 2018-03-26 22:48 | Infectious Disease Progress No ---
Date of Encounter: 03/26/18 Time of Encounter: 22:46 - Assessment and Plan (1) Cellulitis Current Visit: Yes Status: Acute Of the abdominal wall.Symptoms have been present for a few days prior to admission Causative organism not clearPatient had history of MRSA at the CT in the last 1 year Patient unable to get a CT due to his morbid obesity and ultrasound was ordered by the hospitalist team and it reveals no abscess. Agree with broad-spectrum antibioticsBut because of his kidney issues, recommend vancomycin and cefepime instead of Zosyn Goal vancomycin trough 10-15; will ask pharmacy to help with the dosing Blood cultures negative Surgery recommendations appreciated. patient with BMI of 64, recommend IV vancomycin and cefepime for 14 days total. goal vanc around 10, dose adjust Monitor labs and for drug toxicity Qualifiers: Site of cellulitis: trunk Site of cellulitis of trunk: abdominal wall Qualified Code(s): L03.311 - Cellulitis of abdominal wall (2) Lymphedema in adult patient Current Visit: Yes Status: Acute (3) Diabetic neuropathy Current Visit: Yes Status: Acute Qualifiers: Diabetes mellitus type: type 2 Diabetes mellitus complication detail: diabetic polyneuropathy Qualified Code(s): E11.42 - Type 2 diabetes mellitus with diabetic polyneuropathy (4) Wound, open, abdominal wall, anterior Current Visit: No Status: Acute Wound is about 10 cm in length and about 3 cm in width stage III or stage IV with granulation tissue with no surrounding erythema. Nonpainful patient on vanco and cefepime continue wound care Qualifiers: Encounter type: subsequent encounter Qualified Code(s): S31.109D - Unspecified open wound of abdominal wall, unspecified quadrant without penetration into peritoneal cavity, subsequent encounter (5) Allergy to antibiotic Current Visit: Yes Status: Acute Patient does not have a true allergy but intolerance to clindamycin. He was told that it affected his kidneys in the past. (6) Morbid (severe) obesity due to excess calories Current Visit: No Status: Chronic (7) Diabetes mellitus Current Visit: No Status: Chronic poorly controlled need adequate control Qualifiers: Diabetes mellitus type: type 2 Diabetes mellitus proof technician insulin use: with fdc use Diabetes mellitus complication status: with hyperglycemia Qualified Code(s): E11.65 - Type 2 diabetes mellitus with hyperglycemia; Z79.4 - alf (current) use of insulin (8) RICK (obstructive sleep apnea) Current Visit: Yes Status: Acute (9) Type 2 diabetes mellitus Current Visit: Yes Status: Acute Qualifiers: Diabetes mellitus fdc insulin use: with proof technician use Diabetes mellitus complication status: with neurologic complications Diabetes mellitus complication detail: with polyneuropathy Qualified Code(s): E11.42 - Type 2 diabetes mellitus with diabetic polyneuropathy; Z79.4 - respiratory coordinator (current) use of insulin (10) Morbid obesity with BMI of 60.0-69.9, adult Current Visit: Yes Status: Acute recommend bariatric rehab; preferably in [place] or [facility] (11) CKD (chronic kidney disease) Current Visit: No Status: Chronic Qualifiers: Chronic kidney disease stage: stage 3 (moderate) Qualified Code(s): N18.3 - Chronic kidney disease, stage 3 (moderate) - Subjective Interval history: patient seen and examined. States he is feeling better. no abdominal pain. no chest pain, no shortness of breath, no diarrhea. No urinary symptoms. vitals signs stable, afebrile Cr 1.63 vanc level noted. Infect Dis PN-Objective Data - Labs CBC & Chem 7: 03/26/18 05:45 03/26/18 05:45 Labs: Laboratory Results - last 24 hr 03/25/18 03/25/18 03/25/18 07:10 11:12 11:14 WBC RBC Hgb Hct MCV MCH MCHC RDW Plt Count MPV Immature Gran % Seg Neutrophils % Lymphocytes % Monocytes % Eosinophils % Basophils % Neutrophils # Lymphocytes # Monocytes # Eosinophils # Basophils # Nucleated RBCs/100 WBC Platelet Estimate Sodium Potassium Chloride Carbon Dioxide BUN Creatinine Est GFR ( Amer) Est GFR (Non-Af Amer) BUN/Creatinine Ratio Glucose POC Glucose 377 H 404 H* 391 H Calculated Osmolality Calcium 03/25/18 03/25/18 03/26/18 16:26 20:31 05:45 WBC 7.2 RBC 3.26 L Hgb 9.0 L Hct 28.4 L MCV 87.1 MCH 27.6 L MCHC 31.7 RDW 15.6 H Plt Count 252 MPV 10.4 Immature Gran % 0.7 Seg Neutrophils % 62.4 Lymphocytes % 20.4 Monocytes % 9.2 Eosinophils % 6.7 Basophils % 0.6 Neutrophils # 4.5 Lymphocytes # 1.5 Monocytes # 0.7 Eosinophils # 0.5 Basophils # 0.0 Nucleated RBCs/100 WBC 0.3 H Platelet Estimate Normal Sodium Potassium Chloride Carbon Dioxide BUN Creatinine Est GFR ( Amer) Est GFR (Non-Af Amer) BUN/Creatinine Ratio Glucose POC Glucose 325 H 274 H Calculated Osmolality Calcium 03/26/18 03/26/18 03/26/18 05:45 07:41 11:42 WBC RBC Hgb Hct MCV MCH MCHC RDW Plt Count MPV Immature Gran % Seg Neutrophils % Lymphocytes % Monocytes % Eosinophils % Basophils % Neutrophils # Lymphocytes # Monocytes # Eosinophils # Basophils # Nucleated RBCs/100 WBC Platelet Estimate Sodium 132 L Potassium 4.5 Chloride 97 L Carbon Dioxide 28 BUN 37 H Creatinine 1.63 H Est GFR ( Amer) 53 L Est GFR (Non-Af Amer) 44 L BUN/Creatinine Ratio 23 Glucose 340 H POC Glucose 335 H 357 H Calculated Osmolality 296 Calcium 8.5 L 03/26/18 16:05 WBC RBC Hgb Hct MCV MCH MCHC RDW Plt Count MPV Immature Gran % Seg Neutrophils % Lymphocytes % Monocytes % Eosinophils % Basophils % Neutrophils # Lymphocytes # Monocytes # Eosinophils # Basophils # Nucleated RBCs/100 WBC Platelet Estimate Sodium Potassium Chloride Carbon Dioxide BUN Creatinine Est GFR ( Amer) Est GFR (Non-Af Amer) BUN/Creatinine Ratio Glucose POC Glucose 327 H Calculated Osmolality Calcium Cultures: Cultures 03/24/18 01:24 Wound Culture - Final Abdomen No pathogens isolated. - Impressions Impressions Abdomen Ultrasound 03/26/18 14:57 IMPRESSION: No convincing evidence of abscess over the left flank and left lower quadrant in the area of clinical concern. CT scan could be performed for further evaluation if clinically warranted or if symptoms persist/progress. D/ / Boubacar Juares MD / Boubacar Juares MD Interpreting Provider: Boubacar Juares MD Exam - Constitutional Vitals: Temp Pulse Resp BP Pulse Ox 97.8 F 66 16 118/55 97 03/26/18 19:15 03/26/18 19:15 03/26/18 19:15 03/26/18 19:15 03/26/18 19:15 General appearance: no acute distress, no febrile - Respiratory Respiratory exam: Present: CTAB. Absent: wheezes - Cardiovascular Cardiovascular exam: Present: RRR, +S1, +S2 - GI/Abdominal Additional comments: morbidly obese, endurated area left lower quadrant improved but still red and warm to touch - Extremities Exam Additional comments: venous stasis - Neurological Exam Neurological exam: Present: alert, oriented X3 - Skin Additional comments: lesion RUQ stable multiple venous stasis ulcers noted on bilateral legs Consult Discharge Plan - Plan [facility]errals: [facility]Primary Care Provider[facility] - 04/04/18 11:15 am
[2018-03-27] MEDS: *HR* Morphine Sulfate SR (12 HR) 15 MG TABLET.ER PO SCH ×4 (03:35→21:16)
[2018-03-27] MEDS: Cefepime HCl 2,000 MG in 0.9 % Sodium Chloride Mini Bag 100 ML IVPB SCH ×2 (04:40→16:52)
[2018-03-27] MEDS: *HR* Heparin 5,000 UNIT/ML VIAL SQ SCH ×3 (05:05→21:30)
[2018-03-27 06:10] LABS: Basophils % 0.5 %; Eosinophils # 0.5 K/mcL (0.0-0.6); Eosinophils % 6.9 %; Hematocrit 27.1 % (37.5-50.1); Hemoglobin 8.6 g/dL (12.9-16.9); Immature Granulocytes % 0.8 % (0-4); Lymphocytes # 1.8 K/mcL (0.6-4.6); Lymphocytes % 23.3 %; Mean Corpuscular HGB Conc 31.7 g/dL (31.6-35.5); Mean Corpuscular Hemoglobin 28.3 pg (28.0-33.3); Mean Corpuscular Volume 89.1 fL (83.0-100.0); Mean Platelet Volume 10.5 fL (9.4-12.4); Monocytes # 0.6 K/mcL (0.0-1.3); Monocytes % 7.9 %; Neutrophils # 4.6 K/mcL (1.6-8.9); Platelet Count 238 K/mcL (140-400); Red Blood Count 3.04 M/mcL (4.19-5.50); Red Cell Distribution Width 15.5 % (11.5-14.5); Segmented Neutrophils % 60.6 %
[2018-03-27 06:36] LABS: Calcium 8.6 mg/dL (8.6-10.3); Potassium 4.1 mEq/L (3.5-5.1)
[2018-03-27] MEDS: Insulin LISPRO 300 UNITS/3 ML VIAL SQ SCH ×7 (08:00→21:29)
[2018-03-27] MEDS: Spironolactone 25 MG TABLET PO SCH ×2 (08:30→12:51)
[2018-03-27] MEDS: Insulin DETEMIR 100 UNIT/ML X5UNITS SQ SCH ×3 (08:30→21:17)
[2018-03-27] MEDS: Bumetanide 1 MG TABLET PO SCH ×2 (09:50→11:31)
[2018-03-27] MEDS: Miconazole 2% ointment 114 GM TUBE TP SCH ×2 (09:50→21:18)
[2018-03-27] MEDS: BuPROPion XL (24 HR) 150 MG TABLET PO SCH (09:51)
[2018-03-27] MEDS: MOM Conc 10 ML UD.LIQ PO SCH (09:51)
[2018-03-27] MEDS: Cyanocobalamin (B-12) 1,000 MCG TABLET PO SCH (09:51)
[2018-03-27] MEDS: Nystatin POWDER 30 GM BOTTLE TP SCH ×2 (09:51→21:19)
--- NOTE | 2018-03-27 14:17 | Discharge Summary ---
<Ryan Norton - Last Filed: 03/27/18 15:32> - NOTES TO OUTPATIENT PROVIDER Notes to Outpatient Provider: Patient on IV cefepime and IV vancomyin for 9 days. Patient to have CBC, BMP, ESR, and vancomycin trough drawn in 7 days. Orders not resulted at time of discharge: Pending orders 03/28/18 05:00 Vancomycin,Trough Timed Date of Encounter: 03/27/18 Time of Encounter: 09:00 - Discharge Diagnosis (1) Cellulitis Priority: Primary Status: Acute Assessment and Plan: Large area approximately 24 x 24 cm and the left lower quadrant, with induration Due to body habitus and BMI of 72.3 he is unable to have CT of his abdomen performed Ultrasound of the area was negative for abscess formation Continue IV vancomycin and IV cefepime at home We will follow blood cx wound cx are negative ID was consulted recommendations appreciated surgery consulted recommendations appreciated - signed off ESR, and CRP elevated - ordered follow-up labs to be drawn 1 week from discharge Pain control with home medications surgical services director working on placement for patient to continue home Abx and PERFORMANCE INSTRUCTOR Qualifiers: Site of cellulitis: trunk Site of cellulitis of trunk: abdominal wall Qualified Code(s): L03.311 - Cellulitis of abdominal wall (2) Type 2 diabetes mellitus Priority: Primary Status: Acute Assessment and Plan: Uncontrolled, A1c on last admission was 11% off insulin drip now Started back on Levemir 200 daily at bedtime and 100 every morning Started on high-dose sliding scale as [facility] obtained medication list on Lispro 20 units TIDWM Strict glucose monitoring Continue home medication Qualifiers: Diabetes mellitus exterminator helper insulin use: with half-way use Diabetes mellitus complication status: with neurologic complications Diabetes mellitus complication detail: with polyneuropathy Qualified Code(s): E11.42 - Type 2 diabetes mellitus with diabetic polyneuropathy; 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 (3) Hyperosmolar nonketotic coma in diabetes Priority: Primary Status: Acute Assessment and Plan: Resolved Beta-hydroxybutyrate negative (4) CKD (chronic kidney disease) Priority: Secondary Status: Chronic Assessment and Plan: Creatinine today is 1.72, baseline ~1.6 from last admission Outpatient CBC and BMP ordered in 1 week Dose antibiotics as per renal function Avoid nephrotoxic drugs Lasix discontinued Qualifiers: Chronic kidney disease stage: stage 3 (moderate) Qualified Code(s): N18.3 - Chronic kidney disease, stage 3 (moderate) (5) Morbid obesity with BMI of 70 and over, adult Priority: Secondary Status: Chronic (6) RICK (obstructive sleep apnea) Priority: Secondary Status: Acute (7) Edema of left lower extremity Priority: Secondary Status: Acute (8) Suicidal ideation Priority: Primary Status: Acute Assessment and Plan: Resolved Patient examined and cleared by psychiatry Hospital course: Mr. Arreola is a 57 year old male who was admitted for cellulitis of the left lower quadrant of the abdomen. He had been treated previously for cellulitis and was sent home with oral antibiotics about a week ago. He was transferred to us from the [place] for increased erythema and drainage from from the wound. Patient was initially started on IV vancomyin and zosyn. ID was consulted and switched patient from zosyn to IV cefepime for renal protection. Surgery was consulted for possible abscess. Patient was unable to obtain CT due to body habitus, so US was ordered, which was negative for abscess formation. Patient' s glucose was elevated in low 400s, and he was started on insulin levemir 200 units PM and 100 units AM, high dose sliding scale, and lispro 20 units. Patient was examined for possible suicidal ideation, and was cleared by psychiatry. Patient uses CPAP at home for RICK, which was resumed during admission. Patient remained afebrile without leukocytosis throughout admission. He wants to finish his course of IV Abx at home. I ordered follow- up labs for CBC, BMP, ESR, and vancomycin trough in 1 week. surgical services director is working on placement for patient and coverage for home antibiotic infusion [facility]. Patient instructed to follow-up with PCP in 7-10 days. Discharge discussed with: patient, nurse, social work - Time Spent with Patient Total time spent providing and/or coordinating discharge services: Less than 30 minutes - Discharge Medications Home Medications: Nystatin POWDER [Nystop] 1 appl TP DAILY 03/12/18 [History] BuPROPion XL (24 HR) [Wellbutrin Xl] 300 mg PO DAILY #60 tab.er.24h 03/14/18 [Rx ] Calcitriol [Rocaltrol] 0.25 mcg PO 1200 #30 capsule 03/14/18 [Rx] Cyanocobalamin (B-12) [Vitamin B12] 1,000 mcg PO DAILY #30 tablet 03/14/18 [Rx] DULoxetine [Cymbalta] 60 mg PO DAILY #60 capsule. 03/14/18 [Rx] Fluticasone Propionate [24 Hour Allergy] 2 spray NS HS #1 spray.susp 03/14/18 [ Rx] MOM Conc [MILK OF MAGNESIA conc] 10 ml PO TUFR@0900 #100 ud.liq 03/14/18 [Rx] Omeprazole [PriLOSEC] 20 mg PO DAILY #30 capsule. 03/14/18 [Rx] Ondansetron ODT [Zofran ODT] 4 mg SL Q8HR PRN #10 tab.rapdis 03/14/18 [Rx] Polyethylene Glycol 3350 [MiraLAX] 17 gm PO DAILY #20 powd.pack 03/14/18 [Rx] Spironolactone [Aldactone] 75 mg PO 0800,1200 #180 tablet 03/14/18 [Rx] Tamsulosin [Flomax] 0.4 mg PO HS #30 capsule 03/14/18 [Rx] ALPRAZolam [Xanax 1 MG Tablet] 1 tab PO TID PRN 03/22/18 [History] Atenolol [Tenormin] 12.5 mg PO BID 03/22/18 [History] Atorvastatin Calcium 80 mg PO HS 03/22/18 [History] Bumetanide [Bumex] 1 mg PO 1200 03/22/18 [History] Bumetanide [Bumex] 2 mg PO QAM 03/22/18 [History] Insulin ASPART [NovoLOG] 0 unit SQ TIDWM 03/22/18 [History] Insulin Glargine,Hum.rec.anlog [Lantus Solostar] 100 unit SQ QAM 03/22/18 [ History] Insulin Glargine,Hum.rec.anlog [Lantus Solostar] 200 unit SQ QPM 03/22/18 [ History] Levothyroxine [Synthroid] 75 mcg PO QAM 03/22/18 [History] Lidocaine 2 patch TP Q24H 03/22/18 [History] Miconazole Powder 1 appl TP BID 03/22/18 [History] Sennosides/Docusate Sodium [Senna Plus] 4 tab PO DAILY PRN 03/22/18 [History] Morphine Sulfate [Arymo ER] 15 mg PO TID 03/23/18 [History] Oxycodone HCl/Acetaminophen [Percocet 5-325 mg Tablet] 1 tab PO Q12H PRN [History] Allergies/Adverse Reactions: 3 Allergy/AdvReac Type Severity Reaction Status Date / Time clindamycin Allergy Hives Verified 02/26/16 07:07 gabapentin [From Neurontin] Allergy See Verified 11/20/15 20:15 Comments Hydromorphone [From Dilaudid] Allergy See Verified 11/20/15 20:15 Comments ketorolac [From Toradol] Allergy See Verified 11/20/15 20:15 Comments Date of admission: 03/22/18 13:34 [facility] care physician: [facility] Consults: 03/22/18 21:28 Consult to Wound Care [CONS] Routine Reason for Consult: lOWER ABD WALL WOUND Call Completed: No 03/23/18 07:56 Consult to Infectious Diseases [CONS] Routine Consulting Provider: Infectious Disease Cornelia Reason for Consult: infected abdominal wound Call Completed: No 03/23/18 10:57 Consult to Corporate Intern [CONS] Routine Reason for SW Consult: Poss placement 03/23/18 11:51 Consult to Nutrition [CONS] Routine Comment: Consulting Provider: NUTRITION Reason for Dietary Consult: PO Supplementation 03/23/18 15:50 Consult to Psychiatry [CONS] Stat Consulting Provider: Psychiatry Cornelia Reason consult: Sitter/1:1 Other reason and/or additional details: suicidal - sent dr. montiel the food products sales representative an email about being suicidal 03/24/18 07:23 Consult to Endocrinology [CONS] Routine Consulting Provider: Endocrinology & Diabetes Cornelia Reason for Consult: uncontrolled glucose Call Completed: No 03/24/18 11:29 Consult to Surgery [CONS] Stat Consulting Provider: Surgery Cornelia Surgical Reason for Consult: ?ABSCESS IN THE LLQ AND ?PANNICULITIS Call Completed: Yes 03/26/18 08:18 Consult to Case Management [CONS] Routine Comment: 03/26/18 17:11 Consult to Invasive Line Access Team [CONS] Routine Reason for Consult: Picc Line Insertion Line Type: PICC Discharging clinician: Ryan Norton Anticipated date of discharge: 03/27/18 (Pending placement and coverage for home infusion of IV antibiotics and PERFORMANCE INSTRUCTOR) - Constitutional Vitals: Temp Pulse Resp BP Pulse Ox 97.7 F 62 16 135/56 96 03/27/18 11:11 03/27/18 11:11 03/27/18 11:11 03/27/18 11:11 03/27/18 11:11 General appearance: Present: A&O X 3, morbidly obese, no acute distress - Head Head exam: Present: atraumatic, normocephalic - Respiratory Respiratory exam: Present: decreased breath sounds Additional comments: Diminished breath sounds due to body habitus - Cardiovascular Cardiovascular exam: Present: RRR, +S1, +S2 - GI/Abdominal GI/Abdominal exam: Present: soft Additional comments: Wound in LLQ of abdomen with surrounding erythema and induration with small area of serosanguineous discharge. Dressing over area is intact and dry. - Extremities Exam Extremities exam: Present: warm, radial pulses palpable and symmetrical Additional comments: Small venous stasis ulcerations in LE bilaterally - Neurological Exam Neurological exam: Present: alert, CN II-XII intact, oriented X3 - Psychiatric Psychiatric exam: Present: normal affect - Patient Status Disposition: Home Health Service Condition: Fair Functional capacity at discharge: bed bound Overall status at discharge: patient is progressing back to baseline - Discharge Instructions Follow Up With: CALIN,PCP [Primary Care Provider] - 04/04/18 11:15 am Additional Instructions: Please follow up with lab work in 1 week - CBC, BMP, ESR, and vancomycin trough Please follow up with PCP in 7-10 days Patient will receive IV antibiotics for 9 days - Diet and Activity Activity: increase activity as tolerated Diet: advance to your usual diet <Margaux Quispe - Last Filed: 03/28/18 07:32> Orders not resulted at time of discharge: Pending orders 03/29/18 04:00 Vancomycin,Trough AM 0400 Date of Encounter: 03/27/18 - Discharge Diagnosis (1) CKD (chronic kidney disease) Status: Chronic Qualifiers: Chronic kidney disease stage: stage 3 (moderate) Qualified Code(s): N18.3 - Chronic kidney disease, stage 3 (moderate) (2) Cellulitis Status: Acute Qualifiers: Site of cellulitis: trunk Site of cellulitis of trunk: abdominal wall Qualified Code(s): L03.311 - Cellulitis of abdominal wall (3) Morbid obesity with BMI of 70 and over, adult Status: Chronic (4) RICK (obstructive sleep apnea) Status: Acute (5) Type 2 diabetes mellitus Status: Acute Qualifiers: Diabetes mellitus exterminator helper insulin use: with exterminator helper use Diabetes mellitus complication status: with neurologic complications Diabetes mellitus complication detail: with polyneuropathy Qualified Code(s): E11.42 - Type 2 diabetes mellitus with diabetic polyneuropathy; 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 Arreola is a 57 year old male - Time Spent with Patient Total time spent providing and/or coordinating discharge services: Date of admission: 03/22/18 13:34 [facility] physician[facility] Consults: 03/22/18 21:28 Consult to Wound Care [CONS] Routine Reason for Consult: lOWER ABD WALL WOUND Call Completed: No 03/23/18 07:56 Consult to Infectious Diseases [CONS] Routine Consulting Provider: Infectious Disease Cornelia Reason for Consult: infected abdominal wound Call Completed: No 03/23/18 10:57 Consult to Corporate Intern [CONS] Routine Reason for SW Consult: Poss placement 03/23/18 11:51 Consult to Nutrition [CONS] Routine Comment: Consulting Provider: NUTRITION Reason for Dietary Consult: PO Supplementation 03/23/18 15:50 Consult to Psychiatry [CONS] Stat Consulting Provider: Psychiatry Cornelia Reason consult: Sitter/1:1 Other reason and/or additional details: suicidal - sent dr. montiel the food products sales representative an email about being suicidal 03/24/18 07:23 Consult to Endocrinology [CONS] Routine Consulting Provider: Endocrinology & Diabetes Cornelia Reason for Consult: uncontrolled glucose Call Completed: No 03/24/18 11:29 Consult to Surgery [CONS] Stat Consulting Provider: Surgery Cornelia Surgical Reason for Consult: ?ABSCESS IN THE LLQ AND ?PANNICULITIS Call Completed: Yes 03/26/18 08:18 Consult to Case Management [CONS] Routine Comment: 03/26/18 17:11 Consult to Invasive Line Access Team [CONS] Routine Reason for Consult: Picc Line Insertion Line Type: PICC - Constitutional Vitals: Temp Pulse Resp BP Pulse Ox 98.0 F 58 18 122/54 95 03/28/18 03:42 03/28/18 03:42 03/28/18 03:42 03/28/18 03:42 03/27/18 16:23 - Attending Attestation I examined this patient and my medical decision-making was reviewed with the Resident Physician Dr. Norton. I agree with the documented findings, disposition and treatment plan as described except to the extent set forth below. Mr. Arreola is a 57 year old male who was admitted for cellulitis of the left lower quadrant of the abdomen. He had been treated previously for cellulitis and was sent home with oral antibiotics about a week ago. He was [place] us [place] the [place] for increased erythema and drainage from from the wound. Patient was initially started on IV vancomyin and zosyn. ID was consulted and switched patient from zosyn to IV cefepime for renal protection. His blood cx no growth so far and wound cx also did not grow any pathogen. Pt was evaluated by surgery and did not recommend any I & D. At this point ID and we decided to treat his cellulites with total 2 weeks of IV Abx Cefepime and Vancomycin. Pt is stable enough to d/c home today. Gen: A, A, O x 3 Abd: Large open wound in the lower abdomen region.
[2018-03-27] MEDS: Fluticasone Propionate Nasal 50 MCG/SPRAY BOTTLE NS SCH (21:30)
--- NOTE | 2018-03-27 22:37 | Infectious Disease Progress No ---
Date of Encounter: 03/27/18 Time of Encounter: 22:34 - Assessment and Plan (1) Cellulitis Current Visit: Yes Status: Acute Of the abdominal wall.Symptoms have been present for a few days prior to admission Causative organism not clearPatient had history of MRSA at the [facility] in the last 1 year Patient unable to get a CT due to his morbid obesity and ultrasound was ordered by the hospitalist team and it reveals no abscess. Agree with broad-spectrum antibioticsBut because of his kidney issues, recommend vancomycin and cefepime instead of Zosyn Goal vancomycin trough 10-15; will ask pharmacy to help with the dosing Blood cultures negative Surgery recommendations appreciated. patient with BMI of 64, recommend IV vancomycin and cefepime for 14 days total. goal vanc around 10, dose adjust; pharmacy recommends 1750 mg daily and cefepime 2 gram q12 check cbc, bmp, vanc trough on 03/30/18 Monitor labs and for drug toxicity Qualifiers: Site of cellulitis: trunk Site of cellulitis of trunk: abdominal wall Qualified Code(s): L03.311 - Cellulitis of abdominal wall (2) Lymphedema in adult patient Current Visit: Yes Status: Acute (3) Diabetic neuropathy Current Visit: Yes Status: Acute Qualifiers: Diabetes mellitus type: type 2 Diabetes mellitus complication detail: diabetic polyneuropathy Qualified Code(s): E11.42 - Type 2 diabetes mellitus with diabetic polyneuropathy (4) Wound, open, abdominal wall, anterior Current Visit: No Status: Acute Wound is about 10 cm in length and about 3 cm in width stage III or stage IV with granulation tissue with no surrounding erythema. Nonpainful patient on vanco and cefepime continue wound care Qualifiers: Encounter type: subsequent encounter Qualified Code(s): S31.109D - Unspecified open wound of abdominal wall, unspecified quadrant without penetration into peritoneal cavity, subsequent encounter (5) Allergy to antibiotic Current Visit: Yes Status: Acute Patient does not have a true allergy but intolerance to clindamycin. He was told that it affected his kidneys in the past. 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 (8) RICK (obstructive sleep apnea) Current Visit: Yes Status: Acute (9) Type 2 diabetes mellitus Current Visit: Yes Status: Acute Qualifiers: Diabetes mellitus parts interpreter insulin use: with halfway use Diabetes mellitus complication status: with neurologic complications Diabetes mellitus complication detail: with polyneuropathy Qualified Code(s): E11.42 - Type 2 diabetes mellitus with diabetic polyneuropathy; 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 States he is feeling better. no abdominal pain. no chest pain, no shortness of breath, no diarrhea. No urinary symptoms. vitals signs stable, afebrile Cr 1.74 CrCl over 60 per pharmacy vanc level noted. Infect Dis PN-Objective Data - Labs CBC & Chem 7: 03/27/18 05:00 03/27/18 05:00 Labs: Laboratory Results - last 24 hr 03/26/18 03/27/18 03/27/18 21:00 05:00 05:00 WBC 7.6 RBC 3.04 L Hgb 8.6 L Hct 27.1 L MCV 89.1 MCH 28.3 MCHC 31.7 RDW 15.5 H Plt Count 238 MPV 10.5 Immature Gran % 0.8 Seg Neutrophils % 60.6 Lymphocytes % 23.3 Monocytes % 7.9 Eosinophils % 6.9 Basophils % 0.5 Neutrophils # 4.6 Lymphocytes # 1.8 Monocytes # 0.6 Eosinophils # 0.5 Basophils # 0.0 Sodium 134 L Potassium 4.1 Chloride 99 Carbon Dioxide 29 BUN 39 H Creatinine 1.72 H Est GFR ( Amer) 50 L Est GFR (Non-Af Amer) 41 L BUN/Creatinine Ratio 23 Glucose 307 H POC Glucose 218 H Calculated Osmolality 299 Calcium 8.6 Cultures: Cultures 03/24/18 01:24 Wound Culture - Final Abdomen No pathogens isolated. Exam - Constitutional Vitals: Temp Pulse Resp BP Pulse Ox 97.7 F 68 20 131/55 95 03/27/18 19:23 03/27/18 19:23 03/27/18 19:23 03/27/18 19:23 03/27/18 16:23 General appearance: no acute distress, no febrile - Respiratory Respiratory exam: Present: CTAB. Absent: wheezes - Cardiovascular Cardiovascular exam: Present: RRR, +S1, +S2 - GI/Abdominal GI/Abdominal exam: Present: normal bowel sounds, soft. Absent: tenderness Additional comments: cellulitis llq improved Consult Discharge Plan - Plan Additional Instructions: Please follow up with lab work in 1 week - CBC, BMP, ESR, and vancomycin trough Please follow up with PCP in 7-10 days Patient will receive IV antibiotics for 9 days Referrals: CALINPCP [Primary Care Provider] - 04/04/18 11:15 am
[2018-03-28] MEDS ORDERED: *HR* OxyCODONE/APAP 7.5/325 TABLET PO ONE (02:08)
[2018-03-28] MEDS: Cefepime HCl 2,000 MG in 0.9 % Sodium Chloride Mini Bag 100 ML IVPB SCH ×2 (05:10→18:30)
[2018-03-28] MEDS: *HR* Heparin 5,000 UNIT/ML VIAL SQ SCH ×3 (05:16→21:34)
[2018-03-28] MEDS: Insulin LISPRO 300 UNITS/3 ML VIAL SQ SCH ×7 (08:24→21:35)
[2018-03-28] MEDS: Cyanocobalamin (B-12) 1,000 MCG TABLET PO SCH (08:26)
[2018-03-28] MEDS: Insulin DETEMIR 100 UNIT/ML X5UNITS SQ SCH ×3 (08:26→21:37)
[2018-03-28] MEDS: Bumetanide 1 MG TABLET PO SCH ×2 (08:26→12:04)
[2018-03-28] MEDS: *HR* Morphine Sulfate SR (12 HR) 15 MG TABLET.ER PO SCH ×3 (08:27→21:28)
[2018-03-28] MEDS: BuPROPion XL (24 HR) 150 MG TABLET PO SCH (08:27)
[2018-03-28] MEDS: Spironolactone 25 MG TABLET PO SCH ×2 (08:27→12:04)
[2018-03-28] MEDS: Nystatin POWDER 30 GM BOTTLE TP SCH ×2 (08:28→21:37)
[2018-03-28] MEDS: Miconazole 2% ointment 114 GM TUBE TP SCH ×2 (08:29→21:37)
--- NOTE | 2018-03-28 10:44 | Event Note ---
<Ryan Norton S - Last Filed: 03/28/18 10:41> Date of Encounter: 03/28/18 Time of Encounter: 10:41 Patient was given discharge order yesterday pending placement and home IV infusion antibiotic coverage. Patient is cleared medically to be discharged, but insurance didn't approved IV antibiotic regimen. Patient's vancomycin trough was elevated, so we decreased the dose of his IV vancomycin from 1750 mg daily to 1000 mg daily. Ryan Norton DO - PGY1 <BrittaneyAlanalec - Last Filed: 03/28/18 17:48> Date of Encounter: 03/28/18 I examined this patient and my medical decision-making was reviewed with the Resident Physician Dr. Norton. I agree with the documented findings, disposition and treatment plan as described except to the extent set forth below. Mr. Arreola is a 57 year old male who was admitted for cellulitis of the left lower quadrant of the abdomen. He had been treated previously for cellulitis and was sent home with oral antibiotics about a week ago. He was transferred to us from the [place] for increased erythema and drainage from from the wound. Patient was initially started on IV vancomyin and zosyn. ID was consulted and switched patient from zosyn to IV cefepime for renal protection. His blood cx no growth so far and wound cx also did not grow any pathogen. Pt was evaluated by surgery and did not recommend any I & D. At this point ID and we decided to treat his cellulites with total 2 weeks of IV Abx Cefepime and Vancomycin. Gen: A, A, O x 3 Abd: Large open wound in the lower abdomen region. Chest: Diminished BS b/l Heart: S1S2+ RRR no murmurs a/p 1. Acute lower abdomen wall cellulites His Vanc trough level @ 25 So will cut down on Vancomycin dose to 1gm Daily Pt was not able to go home y/d since we are waiting on [facility]in [facility] Pt is medically stable to d/c home today.
--- NOTE | 2018-03-28 14:40 | Infectious Disease Progress No ---
Date of Encounter: 03/28/18 Time of Encounter: 14:36 - Assessment and Plan (1) Cellulitis Current Visit: Yes Status: Acute Of the abdominal wall.Symptoms have been present for a few days prior to admission Causative organism not clearPatient had history of [facility] at [facility] in the last 1 year Patient unable to get a CT due to his morbid obesity and ultrasound was ordered by the hospitalist team and it reveals no abscess. Agree with broad-spectrum antibioticsBut because of his kidney issues, recommend vancomycin and cefepime instead of Zosyn Goal vancomycin trough 10-15; will ask pharmacy to help with the dosing Blood cultures negative Surgery recommendations appreciated. patient with BMI of 64, recommend IV vancomycin and cefepime for 14 days total. goal vanc around 10, dose adjust; pharmacy recommends 1750 mg daily and cefepime 2 gram q12 check cbc, bmp, vanc trough on 03/30/18 Monitor labs and for drug toxicity Patient vancomycin trough continues to be elevated. I am concerned that the kidney injury is getting worse. I did as the questioning told me previously he drawn creatinine about 2. He does have stage III chronic renal insufficiency. I will get a stat BMP prior to leaving to make sure that we do not overdose and with the vancomycin or the cefepime. Qualifiers: Site of cellulitis: trunk Site of cellulitis of trunk: abdominal wall Qualified Code(s): L03.311 - Cellulitis of abdominal wall (2) Lymphedema in adult patient Current Visit: Yes Status: Acute (3) Diabetic neuropathy Current Visit: Yes Status: Acute Qualifiers: Diabetes mellitus type: type 2 Diabetes mellitus complication detail: diabetic polyneuropathy Qualified Code(s): E11.42 - Type 2 diabetes mellitus with diabetic polyneuropathy (4) Wound, open, abdominal wall, anterior Current Visit: No Status: Acute Wound is about 10 cm in length and about 3 cm in width stage III or stage IV with granulation tissue with no surrounding erythema. Nonpainful patient on vanco and cefepime continue wound care Qualifiers: Encounter type: subsequent encounter Qualified Code(s): S31.109D - Unspecified open wound of abdominal wall, unspecified quadrant without penetration into peritoneal cavity, subsequent encounter (5) Allergy to antibiotic Current Visit: Yes Status: Acute Patient does not have a true allergy but intolerance to clindamycin. He was told that it affected his kidneys in the past. 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 insulin use: with watermelon harvesting supervisor use Diabetes mellitus complication status: with hyperglycemia Qualified Code(s): E11.65 - Type 2 diabetes mellitus with hyperglycemia; Z79.4 - long term (current) use of insulin (8) RICK (obstructive sleep apnea) Current Visit: Yes Status: Acute (9) Type 2 diabetes mellitus Current Visit: Yes Status: Acute Qualifiers: Diabetes mellitus watermelon harvesting supervisor insulin use: with watermelon harvesting supervisor use Diabetes mellitus complication status: with neurologic complications Diabetes mellitus complication detail: with polyneuropathy Qualified Code(s): E11.42 - Type 2 diabetes mellitus with diabetic polyneuropathy; Z79.4 - long term (current) use of insulin (10) Morbid obesity with BMI of 60.0-69.9, adult Current Visit: Yes Status: Acute recommend bariatric rehab; preferably in [facility] (11) CKD (chronic kidney disease) Current Visit: No Status: Chronic Qualifiers: Chronic kidney disease stage: stage 3 (moderate) Qualified Code(s): N18.3 - Chronic kidney disease, stage 3 (moderate) - Subjective Interval history: patient seen and examined. Continues to feel great. Is at baseline. Denies any abdominal pain. Good appetite. No diarrhea. No chest pain or shortness of breath. Labs not done today. Vanco trough was 25. Infect Dis PN-Objective Data - Labs CBC & Chem 7: 03/27/18 05:00 03/27/18 05:00 Labs: Laboratory Results - last 24 hr 03/27/18 03/27/18 03/27/18 07:13 11:13 16:21 POC Glucose 303 H 277 H 223 H Vancomycin Trough 03/27/18 03/28/18 20:03 04:47 POC Glucose 244 H Vancomycin Trough 25 H Cultures: Cultures 03/24/18 01:24 Wound Culture - Final Abdomen No pathogens isolated. Exam - Constitutional Vitals: Temp Pulse Resp BP Pulse Ox 98.0 F 62 18 129/57 95 03/28/18 11:49 03/28/18 11:49 03/28/18 11:49 03/28/18 11:49 08/08/18 11:49 General appearance: no acute distress, no febrile - Respiratory Respiratory exam: Present: CTAB. Absent: wheezes - Cardiovascular Cardiovascular exam: Present: RRR, +S2 - GI/Abdominal GI/Abdominal exam: Present: normal bowel sounds, soft. Absent: tenderness Additional comments: Wound on the right upper quadrant intact and improved erythema on the left lower quadrant unchanged there is no drainage and that is apparently his baseline since his had this lymphedema. Consult Discharge Plan - Plan Additional Instructions: Please follow up with lab work in 1 week - CBC, BMP, ESR, and vancomycin trough Please follow up with PCP in 7-10 days Patient will receive IV antibiotics for 9 days Referrals: [facility] [Primary Care Provider] - 04/04/18 11:15 am
[2018-03-28 15:20] LABS: Calcium 8.9 mg/dL (8.6-10.3); Potassium 4.1 mEq/L (3.5-5.1)
[2018-03-28] MEDS: Fluticasone Propionate Nasal 50 MCG/SPRAY BOTTLE NS SCH (21:35)
[2018-03-29] MEDS: *HR* Heparin 5,000 UNIT/ML VIAL SQ SCH (05:04)
[2018-03-29] MEDS ORDERED: *HR* OxyCODONE/APAP 7.5/325 TABLET PO ONE (05:41)
[2018-03-29] MEDS: Cefepime HCl 2,000 MG in 0.9 % Sodium Chloride Mini Bag 100 ML IVPB SCH (05:58)
[2018-03-29] MEDS: Insulin DETEMIR 100 UNIT/ML X5UNITS SQ SCH (09:54)
[2018-03-29] MEDS: Insulin LISPRO 300 UNITS/3 ML VIAL SQ SCH ×4 (09:55→12:11)
[2018-03-29] MEDS: BuPROPion XL (24 HR) 150 MG TABLET PO SCH (09:56)
[2018-03-29] MEDS: Spironolactone 25 MG TABLET PO SCH ×2 (09:56→12:06)
[2018-03-29] MEDS: Cyanocobalamin (B-12) 1,000 MCG TABLET PO SCH (09:57)
[2018-03-29] MEDS: *HR* Morphine Sulfate SR (12 HR) 15 MG TABLET.ER PO SCH (09:57)
[2018-03-29] MEDS: Miconazole 2% ointment 114 GM TUBE TP SCH (09:58)
[2018-03-29] MEDS: Nystatin POWDER 30 GM BOTTLE TP SCH (09:58)
[2018-03-29] MEDS: Bumetanide 1 MG TABLET PO SCH ×2 (09:58→12:05)
[2018-03-29 11:29] VITALS: BP 131/47
[2018-03-29] MEDS ORDERED: Aminoglycoside Consult 1 EACH MC ONE (14:15)
--- NOTE | 2018-03-29 14:19 | Physician Discharge Referral ---
Home Health/Hosp Referral Info Transfer to: Home Health Provider in Charge Post Discharge: PCP - Diagnosis (1) CKD (chronic kidney disease) Status: Chronic (2) Cellulitis Status: Acute (3) Morbid obesity with BMI of 70 and over, adult Status: Chronic (4) RICK (obstructive sleep apnea) Status: Acute (5) Type 2 diabetes mellitus Status: Acute (6) Hyperosmolar nonketotic coma in diabetes Status: Acute (7) Edema of left lower extremity Status: Acute (8) Suicidal ideation Status: Acute - Respiratory Orders Smoking Cessation: Smoking cessation has been advised. For more information, call the [place] Tobacco Quit Line at 1-796-VMPHNOW. - Services Needed Following services are medically necessary services: Nursing - Transfer Medications Home Medications: Nystatin POWDER [Nystop] 1 appl TP DAILY 03/12/18 [History] BuPROPion XL (24 HR) [Wellbutrin Xl] 300 mg PO DAILY #60 tab.er.24h 03/14/18 [Rx ] Calcitriol [Rocaltrol] 0.25 mcg PO 1200 #30 capsule 03/14/18 [Rx] Cyanocobalamin (B-12) [Vitamin B12] 1,000 mcg PO DAILY #30 tablet 03/14/18 [Rx] DULoxetine [Cymbalta] 60 mg PO DAILY #60 capsule. 03/14/18 [Rx] Fluticasone Propionate [24 Hour Allergy] 2 spray NS HS #1 spray.susp 03/14/18 [ Rx] MOM Conc [MILK OF MAGNESIA conc] 10 ml PO TUFR@0900 #100 ud.liq 03/14/18 [Rx] Omeprazole [PriLOSEC] 20 mg PO DAILY #30 capsule. 03/14/18 [Rx] Ondansetron ODT [Zofran ODT] 4 mg SL Q8HR PRN #10 tab.rapdis 03/14/18 [Rx] Polyethylene Glycol 3350 [MiraLAX] 17 gm PO DAILY #20 powd.pack 03/14/18 [Rx] Spironolactone [Aldactone] 75 mg PO 0800,1200 #180 tablet 03/14/18 [Rx] Tamsulosin [Flomax] 0.4 mg PO HS #30 capsule 03/14/18 [Rx] ALPRAZolam [Xanax 1 MG Tablet] 1 tab PO TID PRN 03/22/18 [History] Atenolol [Tenormin] 12.5 mg PO BID 03/22/18 [History] Atorvastatin Calcium 80 mg PO HS 03/22/18 [History] Bumetanide [Bumex] 1 mg PO 1200 03/22/18 [History] Bumetanide [Bumex] 2 mg PO QAM 03/22/18 [History] Insulin ASPART [NovoLOG] 0 unit SQ TIDWM 03/22/18 [History] Insulin Glargine,Hum.rec.anlog [Lantus Solostar] 100 unit SQ QAM 03/22/18 [ History] Insulin Glargine,Hum.rec.anlog [Lantus Solostar] 200 unit SQ QPM 03/22/18 [ History] Levothyroxine [Synthroid] 75 mcg PO QAM 03/22/18 [History] Lidocaine 2 patch TP Q24H 03/22/18 [History] Miconazole Powder 1 appl TP BID 03/22/18 [History] Sennosides/Docusate Sodium [Senna Plus] 4 tab PO DAILY PRN 03/22/18 [History] Morphine Sulfate [Arymo ER] 15 mg PO TID 03/23/18 [History] Oxycodone HCl/Acetaminophen [Percocet 5-325 mg Tablet] 1 tab PO Q12H PRN [History] Allergies/Adverse Reactions: 3 Allergy/AdvReac Type Severity Reaction Status Date / Time clindamycin Allergy Hives Verified 02/26/16 07:07 gabapentin [From Neurontin] Allergy See Verified 11/20/15 20:15 Comments Hydromorphone [From Dilaudid] Allergy See Verified 11/20/15 20:15 Comments ketorolac [From Toradol] Allergy See Verified 11/20/15 20:15 Comments Certification: Further, I certify that my clinical findings support that this patient is homebound (i.e. absences from home require considerable and taxing effort and are for medical reasons or anabaptist services or infrequently or short duration when for other reasons) because: Homebound Reason: Patient requires assistance of a person or device to safely leave home Attestation: My signature below is to certify that this patient is under my care and that I, or nurse practitioner, or a physician's special events assistant working with me, has a face-to -face encounter with this patient.
--- NOTE | 2018-03-29 14:21 | Event Note ---
Date of Encounter: 03/29/18 Time of Encounter: 14:19 Mr. Arreola is a 57 year old male who was admitted for cellulitis of the left lower quadrant of the abdomen. He had been treated previously for cellulitis and was sent home with oral antibiotics about a week ago. [facility] and drainage from from the wound. Patient was initially started on IV vancomyin and zosyn. ID was consulted and switched patient from zosyn to IV cefepime for renal protection. His blood cx no growth so far and wound cx also did not grow any pathogen. Pt was evaluated by surgery and did not recommend any I & D. At this point ID and we decided to treat his cellulites with total 2 weeks of IV Abx Cefepime and Vancomycin. a/p 1. Acute lower abdomen wall cellulites y/d his Vanc trough level @ 25 so we cut down on Vancomycin dose to 1gm Daily His home visiting nurse able to do IV abx from today, so CM set up for d/c this afternoon. He recieved his Vancomycin and Cefepime this morning. No events over night. Pt is medically stable to d/c home today.
== END 2018-03-29 14:16 | disposition home health service (06) | DRG 602 ==
LOC: EMEROO 11:48 → 3ANU 13:34 → SUATTDRO 13:34 → 3NENU 16:37 → 2NNU 03-24 09:49
PROVIDERS: ADMIT Hospitalist; ATTEND Internal Medicine

== ENCOUNTER 2019-02-18 13:06 | Inpatient (IN) ==
[2019-02-18] MEDS ORDERED: Furosemide 40 MG/4 ML VIAL IVP ONE (13:28)
--- NOTE | 2019-02-18 13:36 | Emergency Department Note ---
Disposition Clinical Impression: CHF (congestive heart failure) Qualifiers: Heart failure type: unspecified Heart failure chronicity: acute on chronic Qualified Code(s): I50.9 - Heart failure, unspecified Disposition: Admitted As Inpatient Condition: Good Time of Disposition: 13:37 General Adult HPI - General Chief complaint: ED Shortness of Breath/Dyspnea Stated complaint: SOB Time Seen by Provider: 02/18/19 13:09 - History of Present Illness Pain Scale: 0 - Related Data Home Medications Medication Instructions Recorded Confirmed Nystatin POWDER [Nystop] 1 appl TP DAILY 03/12/18 03/22/18 ALPRAZolam [Xanax 1 MG Tablet] 1 tab PO TID PRN 03/22/18 03/22/18 Atenolol [Tenormin] 12.5 mg PO BID 03/22/18 03/22/18 Atorvastatin Calcium 80 mg PO HS 03/22/18 03/22/18 Bumetanide [Bumex] 1 mg PO 1200 03/22/18 03/22/18 Bumetanide [Bumex] 2 mg PO QAM 03/22/18 03/22/18 Insulin ASPART [NovoLOG] 0 unit SQ TIDWM 03/22/18 03/22/18 Insulin Glargine,Hum.rec.anlog 100 unit SQ QAM 03/22/18 03/22/18 [Lantus Solostar] Insulin Glargine,Hum.rec.anlog 200 unit SQ QPM 03/22/18 03/22/18 [Lantus Solostar] Levothyroxine [Synthroid] 75 mcg PO QAM 03/22/18 03/22/18 Lidocaine 2 patch TP Q24H 03/22/18 03/22/18 Miconazole Powder 1 appl TP BID 03/22/18 03/22/18 Sennosides/Docusate Sodium [Senna 4 tab PO DAILY PRN 03/22/18 03/22/18 Plus] Morphine Sulfate [Arymo ER] 15 mg PO TID 03/23/18 03/23/18 Oxycodone HCl/Acetaminophen 1 tab PO Q12H PRN 03/23/18 03/23/18 [Percocet 5-325 mg Tablet] Previous Rx's Medication Instructions Recorded BuPROPion XL (24 HR) [Wellbutrin 300 mg PO DAILY #60 tab.er.24h 03/14/18 Xl] Calcitriol [Rocaltrol] 0.25 mcg PO 1200 #30 capsule 03/14/18 Cyanocobalamin (B-12) [Vitamin B12] 1,000 mcg PO DAILY #30 tablet 03/14/18 DULoxetine [Cymbalta] 60 mg PO DAILY #60 capsule. 03/14/18 Fluticasone Propionate [24 Hour 2 spray NS HS #1 spray.susp 03/14/18 Allergy] MOM Conc [MILK OF MAGNESIA conc] 10 ml PO TUFR@0900 #100 ud.liq 03/14/18 Omeprazole [PriLOSEC] 20 mg PO DAILY #30 capsule. 03/14/18 Ondansetron ODT [Zofran ODT] 4 mg SL Q8HR PRN #10 tab.rapdis 03/14/18 Polyethylene Glycol 3350 [MiraLAX] 17 gm PO DAILY #20 powd.pack 03/14/18 Spironolactone [Aldactone] 75 mg PO 0800,1200 #180 tablet 03/14/18 Tamsulosin [Flomax] 0.4 mg PO HS #30 capsule 03/14/18 Allergies Allergy/AdvReac Type Severity Reaction Status Date / Time clindamycin Allergy Hives Verified 02/26/16 07:07 gabapentin [From Neurontin] Allergy See Verified 11/20/15 20:15 Comments hydromorphone [From Dilaudid] Allergy See Verified 11/20/15 20:15 Comments ketorolac [From Toradol] Allergy See Verified 11/20/15 20:15 Comments Past Medical History - Past Medical History Medical history: Reports: diabetes, hypertension, renal disease Psychiatric history: Reports: anxiety, depression - Social History Smoking Status: Never smoker Smokeless Tobacco Status: No Alcohol use: Reports: none Drug use: Reports: none Physical Exam - General General appearance: alert Course - Consultations Consultation #1: discussed case with Dr. Pearce and she accepts patient to medicne Time: 14:58 Consultation #2: hospitalist Alethea are concerend about future requirements for CT scans as he may require it if he decompensates at the hospital. I have advised that he does not require a CT scan at this time, I can add a D-dimer for further evaluation of PE, and if it is elevated than I will have grounds for warranting a CT scan and possible transfer. D-dimer pending. Time: 15:44 Vital Signs Temperature 98.1 F 02/18/19 13:16 Pulse Rate 69 02/18/19 13:16 Respiratory Rate 19 02/18/19 13:16 Blood Pressure 150/64 02/18/19 13:16 O2 Sat by Pulse Oximetry 100 02/18/19 13:16 Temperature 98.1 F 02/18/19 13:16 Pulse Rate 69 02/18/19 13:16 Respiratory Rate 8 02/18/19 13:58 Blood Pressure 150/64 02/18/19 13:16 O2 Sat by Pulse Oximetry 30 02/18/19 13:58 Oxygen Delivery Oxygen Delivery Bipap Medical Decision Making - Lab Data Result diagrams: 02/18/19 13:28 Lab Results 02/18/19 02/18/19 02/18/19 Range/Units 13:28 13:28 13:28 WBC (4.3-11.1) K/mcL RBC (4.19-5.50) M/mcL Hgb (12.9-16.9) g/dL Hct (37.5-50.1) % MCV (83.0-100.0) fL MCH (28.0-33.3) pg MCHC (31.6-35.5) g/dL RDW (11.5-14.5) % Plt Count (140-400) K/mcL MPV (9.4-12.4) fL Immature Gran % (0-4) % Seg Neutrophils % % Lymphocytes % % Monocytes % % Eosinophils % % Basophils % % Neutrophils # (1.6-8.9) K/mcL Lymphocytes # (0.6-4.6) K/mcL Monocytes # (0.0-1.3) K/mcL Eosinophils # (0.0-0.6) K/mcL Basophils # (0.0-0.2) K/mcL PT 11.0 (9.4-12.1) Seconds INR 1.0 APTT 34.6 (26.0-36.0) Seconds Total Bilirubin 0.4 (0.3-1.0) mg/dL Direct Bilirubin 0.1 (0.0-0.2) mg/dL Indirect Bilirubin 0.3 (0.0-1.2) mg/dL AST 24 (13-39) Units/L ALT 22 (7-52) Units/L Alkaline Phosphatase 170 H (34-104) Units/L B-Natriuretic Peptide 67 (Less than 100) pg/mL Serum Total Protein 6.9 (6.4-8.9) g/dL Albumin 3.5 (3.5-5.7) g/dL Globulin 3.4 (2.4-3.5) g/dL Albumin/Globulin Ratio 1.0 L (1.1-2.2) Lipase 27 (11-82) Units/L 02/18/19 Range/Units 13:28 WBC 12.4 H (4.3-11.1) K/mcL RBC 3.09 L (4.19-5.50) M/mcL Hgb 8.8 L (12.9-16.9) g/dL Hct 28.0 L (37.5-50.1) % MCV 90.6 (83.0-100.0) fL MCH 28.5 (28.0-33.3) pg MCHC 31.4 L (31.6-35.5) g/dL RDW 14.4 (11.5-14.5) % Plt Count 279 (140-400) K/mcL MPV 9.5 (9.4-12.4) fL Immature Gran % 0.6 (0-4) % Seg Neutrophils % 73.9 % Lymphocytes % 15.6 % Monocytes % 6.3 % Eosinophils % 3.3 % Basophils % 0.3 % Neutrophils # 9.1 H (1.6-8.9) K/mcL Lymphocytes # 1.9 (0.6-4.6) K/mcL Monocytes # 0.8 (0.0-1.3) K/mcL Eosinophils # 0.4 (0.0-0.6) K/mcL Basophils # 0.0 (0.0-0.2) K/mcL PT (9.4-12.1) Seconds INR APTT (26.0-36.0) Seconds Total Bilirubin (0.3-1.0) mg/dL Direct Bilirubin (0.0-0.2) mg/dL Indirect Bilirubin (0.0-1.2) mg/dL AST (13-39) Units/L ALT (7-52) Units/L Alkaline Phosphatase (34-104) Units/L B-Natriuretic Peptide (Less than 100) pg/mL Serum Total Protein (6.4-8.9) g/dL Albumin (3.5-5.7) g/dL Globulin (2.4-3.5) g/dL Albumin/Globulin Ratio (1.1-2.2) Lipase (11-82) Units/L Attestation Statement - Attestation Attestation: I reviewed the residents documentation and agree with the residents assessment and plan of care. I have personally had face to face time with the patient. (Brief History, Brief Exam, and MDM) I personally supervised and was present for the pak/critical portions of the following procedures completed by the resident: EKG 58 year old male presents to the ED from the [facility] for difficulty in breathing. Fernie has a long standing history of CHF and has been on oral lasix at home without improvment and has gained about 50 pounds in the last few weeks. He is chronically on the bipap at all times and was otherwise being cared for at the NH and he was not improving. They could not place an IV for the IV lasix therapy that was required. He does not appaer to be in flash pulmonary edema and states that laying semi flat helps him with his symptoms wheere as when he sits up his symptoms worsen. Fernie is speaking in full sentences at rest. Fernie is currently on bipap. Fernie also denies any cough, or fevers, or productive cough. His last hospitlazaitions was secondary to cellulitis in May 2018 but otherwise has not required hospitalization. Fernie will be treated with IV lasix at this time and we will do an extensive cardiopulmonary workup and admit to medicine. He does appear to be fluid overloaded with a tense abdomen. He has a chornic wound on the right side of his chest that otherwise has had minimal leakage and bleeding which he think is secondary to his fluid weight gain. Fernie appears stable at this stime. HE state he has been on bumex in the past. fernie wound does not show any erythema or signs of infection and otherwise has clean defined borders without active bleeds.
[2019-02-18 13:45] LABS: Basophils % 0.3 %; Eosinophils # 0.4 K/mcL (0.0-0.6); Eosinophils % 3.3 %; Hemoglobin 8.8 g/dL (12.9-16.9); Immature Granulocytes % 0.6 % (0-4); Lymphocytes # 1.9 K/mcL (0.6-4.6); Lymphocytes % 15.6 %; Mean Corpuscular HGB Conc 31.4 g/dL (31.6-35.5); Mean Corpuscular Hemoglobin 28.5 pg (28.0-33.3); Mean Corpuscular Volume 90.6 fL (83.0-100.0); Mean Platelet Volume 9.5 fL (9.4-12.4); Monocytes # 0.8 K/mcL (0.0-1.3); Monocytes % 6.3 %; Neutrophils # 9.1 K/mcL (1.6-8.9); Platelet Count 279 K/mcL (140-400); Red Blood Count 3.09 M/mcL (4.19-5.50); Red Cell Distribution Width 14.4 % (11.5-14.5); Segmented Neutrophils % 73.9 %; White Blood Count 12.4 K/mcL (4.3-11.1)
--- NOTE | 2019-02-18 13:59 | Emergency Department Note ---
Disposition Clinical Impression: CHF (congestive heart failure) Qualifiers: Heart failure type: unspecified Heart failure chronicity: acute on chronic Qualified Code(s): I50.9 - Heart failure, unspecified Disposition: Admitted As Inpatient Condition: Good Time of Disposition: 15:07 SOB HPI - General Chief Complaint: ED Shortness of Breath/Dyspnea Stated Complaint: SOB Time Seen by Provider: 02/18/19 13:09 Source: EMS Mode of arrival: EMS Nursing Notes Reviewed: Yes Vital Signs Reviewed: Yes - History of Present Illness Pt Subjective Complaint: shortness of breath Onset (ago): week(s) (6-8 weeks ago) Context: other (Fluid retention) Severity: severe Consistency/Duration: gradually worsening Improves with: oxygen (Bi-pap), medication (Diuretics) Worsens with: other (Sitting upright) Known history of: diabetes, other (CKD, anemia, diabetes, lymphedema, ce llulitis, obesity) Associated symptoms: Reports: denies other symptoms Treatment prior to arrival: oxygen Cough present: No Sputum production: No - Related Data Home Medications Medication Instructions Recorded Confirmed Nystatin POWDER [Nystop] 1 appl TP DAILY 03/12/18 03/22/18 ALPRAZolam [Xanax 1 MG Tablet] 1 tab PO TID PRN 03/22/18 03/22/18 Atenolol [Tenormin] 12.5 mg PO BID 03/22/18 03/22/18 Atorvastatin Calcium 80 mg PO HS 03/22/18 03/22/18 Bumetanide [Bumex] 1 mg PO 1200 03/22/18 03/22/18 Bumetanide [Bumex] 2 mg PO QAM 03/22/18 03/22/18 Insulin ASPART [NovoLOG] 0 unit SQ TIDWM 03/22/18 03/22/18 Insulin Glargine,Hum.rec.anlog 100 unit SQ QAM 03/22/18 03/22/18 [Lantus Solostar] Insulin Glargine,Hum.rec.anlog 200 unit SQ QPM 03/22/18 03/22/18 [Lantus Solostar] Levothyroxine [Synthroid] 75 mcg PO QAM 03/22/18 03/22/18 Lidocaine 2 patch TP Q24H 03/22/18 03/22/18 Miconazole Powder 1 appl TP BID 03/22/18 03/22/18 Sennosides/Docusate Sodium [Senna 4 tab PO DAILY PRN 03/22/18 03/22/18 Plus] Morphine Sulfate [Arymo ER] 15 mg PO TID 03/23/18 03/23/18 Oxycodone HCl/Acetaminophen 1 tab PO Q12H PRN 03/23/18 03/23/18 [Percocet 5-325 mg Tablet] Previous Rx's Medication Instructions Recorded BuPROPion XL (24 HR) [Wellbutrin 300 mg PO DAILY #60 tab.er.24h 03/14/18 Xl] Calcitriol [Rocaltrol] 0.25 mcg PO 1200 #30 capsule 03/14/18 Cyanocobalamin (B-12) [Vitamin B12] 1,000 mcg PO DAILY #30 tablet 03/14/18 DULoxetine [Cymbalta] 60 mg PO DAILY #60 capsule. 03/14/18 Fluticasone Propionate [24 Hour 2 spray NS HS #1 spray.susp 03/14/18 Allergy] MOM Conc [MILK OF MAGNESIA conc] 10 ml PO TUFR@0900 #100 ud.liq 03/14/18 Omeprazole [PriLOSEC] 20 mg PO DAILY #30 capsule. 03/14/18 Ondansetron ODT [Zofran ODT] 4 mg SL Q8HR PRN #10 tab.rapdis 03/14/18 Polyethylene Glycol 3350 [MiraLAX] 17 gm PO DAILY #20 powd.pack 03/14/18 Spironolactone [Aldactone] 75 mg PO 0800,1200 #180 tablet 03/14/18 Tamsulosin [Flomax] 0.4 mg PO HS #30 capsule 03/14/18 Allergies Allergy/AdvReac Type Severity Reaction Status Date / Time clindamycin Allergy Hives Verified 02/26/16 07:07 gabapentin [From Neurontin] Allergy See Verified 11/20/15 20:15 Comments hydromorphone [From Dilaudid] Allergy See Verified 11/20/15 20:15 Comments ketorolac [From Toradol] Allergy See Verified 11/20/15 20:15 Comments All systems ED: reviewed and negative except as stated. Review of Systems: As Per HPI Constitutional: Reports: as per HPI, weight change (Weight increase of estimated 50 lbs during past month). Denies: fever, chills, weakness Cardiovascular: Reports: edema. Denies: chest pain, palpitations, dyspnea on ex ertion, syncope Respiratory: Reports: as per HPI, dyspnea. Denies: cough, wheezes, hemoptysis, stridor Integumentary: Reports: as per HPI, rash (Vesicular erythematous rash on bilateral lower extremities). Denies: abrasion, lesions Past Medical History - Past Medical History Medical history: Reports: diabetes, hypertension, renal disease Psychiatric history: Reports: anxiety, depression - Social History Smoking Status: Never smoker Smokeless Tobacco Status: No Alcohol use: Reports: none Drug use: Reports: none Physical Exam - General General appearance: alert, obese - Respiratory Respiratory exam: Present: respiratory distress (Patient became short of breath while talking), other (Unable to auscultate) - Cardiovascular Cardiovascular exam: Present: other (Unable to auscultate) - Abdominal Exam Abdominal exam: Present: Non-Tender, distention, normal bowel sounds, ascites, other (Open wound covered by dressing on right side with no visible drainage) - Rectal Exam Rectal exam: Present: deferred - Extremities Exam Extremities exam: Present: normal capillary refill, pedal edema - Skin Skin exam: Present: warm, erythema Course Course Narrative: Discussed plan with attending. Patient on BiPAP, will run EKG, CXR, CBC, LFTs, and CHF workup. Will likely require admission for diuresis. Ddx includes acute on chronic CHF exacerbation, pneumonia, ascites 2/2 liver cirrhosis. PE unlikely (PERC score of 1). LFT panel WNL apart from chronic alk phos elevation of 170. CBC indicated hgb 8.8 consistent with past several years; slight WBC elevation of 12.4. Vital Signs Temperature 98.1 F 02/18/19 13:16 Pulse Rate 69 02/18/19 13:16 Respiratory Rate 02/18/19 13:16 Blood Pressure 150/64 02/18/19 13:16 O2 Sat by Pulse Oximetry 100 02/18/19 13:16 Temperature 98.1 F 02/18/19 13:16 Pulse Rate 69 02/18/19 13:16 Respiratory Rate 8 02/18/19 13:58 Blood Pressure 150/64 02/18/19 13:16 O2 Sat by Pulse Oximetry 30 02/18/19 13:58 Oxygen Delivery Oxygen Delivery Bipap Shortness of Breath/Dyspnea - Lab Data Result diagrams: 02/18/19 13:28 02/18/19 13:28 Lab Results 02/18/19 02/18/19 02/18/19 Range/Units 13:28 13:28 13:28 WBC (4.3-11.1) K/mcL RBC (4.19-5.50) M/mcL Hgb (12.9-16.9) g/dL Hct (37.5-50.1) % MCV (83.0-100.0) fL MCH (28.0-33.3) pg MCHC (31.6-35.5) g/dL RDW (11.5-14.5) % Plt Count (140-400) K/mcL MPV (9.4-12.4) fL Immature Gran % (0-4) % Seg Neutrophils % % Lymphocytes % % Monocytes % % Eosinophils % % Basophils % % Neutrophils # (1.6-8.9) K/mcL Lymphocytes # (0.6-4.6) K/mcL Monocytes # (0.0-1.3) K/mcL Eosinophils # (0.0-0.6) K/mcL Basophils # (0.0-0.2) K/mcL PT 11.0 (9.4-12.1) Seconds INR 1.0 APTT 34.6 (26.0-36.0) Seconds D-Dimer 254 (0-500) ng/mLFEU Sodium 134 L (136-145) mEq/L Potassium 3.7 (3.5-5.1) mEq/L Chloride 87 L (98-107) mEq/L Carbon Dioxide 36 H (23-29) mEq/L BUN 90 H (6-20) mg/dL Creatinine 1.99 H (0.70-1.30) mg/dL Est GFR ( Amer) 42 L (> 60) Est GFR (Non-Af Amer) 35 L (> 60) BUN/Creatinine Ratio 45 H (6-26) Glucose 321 H (70-105) mg/dL Calculated Osmolality 318 H (280-300) Calcium 9.7 (8.6-10.3) mg/dL Total Bilirubin 0.4 (0.3-1.0) mg/dL Direct Bilirubin 0.1 (0.0-0.2) mg/dL Indirect Bilirubin 0.3 (0.0-1.2) mg/dL AST 24 (13-39) Units/L ALT 22 (7-52) Units/L Alkaline Phosphatase 170 H (34-104) Units/L Troponin I < 0.03 (< 0.04) ng/mL B-Natriuretic Peptide 67 (Less than 100) pg/mL Serum Total Protein 6.9 (6.4-8.9) g/dL Albumin 3.5 (3.5-5.7) g/dL Globulin 3.4 (2.4-3.5) g/dL Albumin/Globulin Ratio 1.0 L (1.1-2.2) Lipase 27 (11-82) Units/L 02/18/19 Range/Units 13:28 WBC 12.4 H (4.3-11.1) K/mcL RBC 3.09 L (4.19-5.50) M/mcL Hgb 8.8 L (12.9-16.9) g/dL Hct 28.0 L (37.5-50.1) % MCV 90.6 (83.0-100.0) fL MCH 28.5 (28.0-33.3) pg MCHC 31.4 L (31.6-35.5) g/dL RDW 14.4 (11.5-14.5) % Plt Count 279 (140-400) K/mcL MPV 9.5 (9.4-12.4) fL Immature Gran % 0.6 (0-4) % Seg Neutrophils % 73.9 % Lymphocytes % 15.6 % Monocytes % 6.3 % Eosinophils % 3.3 % Basophils % 0.3 % Neutrophils # 9.1 H (1.6-8.9) K/mcL Lymphocytes # 1.9 (0.6-4.6) K/mcL Monocytes # 0.8 (0.0-1.3) K/mcL Eosinophils # 0.4 (0.0-0.6) K/mcL Basophils # 0.0 (0.0-0.2) K/mcL PT (9.4-12.1) Seconds INR APTT (26.0-36.0) Seconds D-Dimer (0-500) ng/mLFEU Sodium (136-145) mEq/L Potassium (3.5-5.1) mEq/L Chloride (98-107) mEq/L Carbon Dioxide (23-29) mEq/L BUN (6-20) mg/dL Creatinine (0.70-1.30) mg/dL Est GFR ( Amer) (> 60) Est GFR (Non-Af Amer) (> 60) BUN/Creatinine Ratio (6-26) Glucose (70-105) mg/dL Calculated Osmolality (280-300) Calcium (8.6-10.3) mg/dL Total Bilirubin (0.3-1.0) mg/dL Direct Bilirubin (0.0-0.2) mg/dL Indirect Bilirubin (0.0-1.2) mg/dL AST (13-39) Units/L ALT (7-52) Units/L Alkaline Phosphatase (34-104) Units/L Troponin I (< 0.04) ng/mL B-Natriuretic Peptide (Less than 100) pg/mL Serum Total Protein (6.4-8.9) g/dL Albumin (3.5-5.7) g/dL Globulin (2.4-3.5) g/dL Albumin/Globulin Ratio (1.1-2.2) Lipase (11-82) Units/L - Radiology Data Chest X-Ray 02/18/19 13:15 IMPRESSION: 1. Limited examination as described above. 2. Obscuration of the left hemidiaphragm which may be on the basis of atelectasis, pleural effusion or an infectious/inflammatory process. This could be further evaluated via dedicated PA and lateral views of the chest when the patient is better able to tolerate imaging. 3. Likely chronic right pleural thickening. D/ / Genaro Gee / Genaro Gee Interpreting Provider: Genaro Gee - EKG Data EKG attestation: Yes I reviewed and interpreted this EKG. EKG shows normal: Reports: sinus rhythm Rate: Reports: normal Rhythm: Reports: NSR [place]/QRS: Reports: normal QTc: Reports: prolonged Interpretation: Reports: no acute changes
[2019-02-18 14:06] LABS: Activated Partial Thrombo Time 34.6 Seconds (26.0-36.0)
[2019-02-18 14:17] LABS: Alanine Aminotransferase 22 Units/L (7-52); Albumin 3.5 g/dL (3.5-5.7); Alkaline Phosphatase 170 Units/L (34-104); Aspartate Amino Transferase 24 Units/L (13-39); Bilirubin,Direct 0.1 mg/dL (0.0-0.2); Bilirubin,Indirect 0.3 mg/dL (0.0-1.2); Bilirubin,Total 0.4 mg/dL (0.3-1.0); Globulin 3.4 g/dL (2.4-3.5); Lipase 27 Units/L (11-82); Total Protein 6.9 g/dL (6.4-8.9)
--- NOTE | 2019-02-18 15:16 | Internal Med History&Physical ---
Date of Encounter: 02/18/19 Internal Medicine - H&P: HPI History of present illness: Mr. Arreola is a 58 year old male Past Med Surg Social Fam HX - Past Medical History Medical history: diabetes, hypertension, renal disease Additional medical history: obesity Psychiatric history: anxiety, depression - Past Surgical History Additional surgical history: apenalectomy - Social History Smoking Status: Never smoker Smokeless Tobacco Status: No Alcohol use: none Drug use: none - Family History Grandfather Hx Family Endocrine Disorder: Yes (DM) Internal Medicine - H&P: Meds Nystatin POWDER [Nystop] 1 appl TP DAILY 03/12/18 [History] BuPROPion XL (24 HR) [Wellbutrin Xl] 300 mg PO DAILY #60 tab.er.24h 03/14/18 [Rx] Calcitriol [Rocaltrol] 0.25 mcg PO 1200 #30 capsule 03/14/18 [Rx] Cyanocobalamin (B-12) [Vitamin B12] 1,000 mcg PO DAILY #30 tablet 03/14/18 [Rx] DULoxetine [Cymbalta] 60 mg PO DAILY #60 capsule. 03/14/18 [Rx] Fluticasone Propionate [24 Hour Allergy] 2 spray NS HS #1 spray.susp 03/14/18 [Rx] MOM Conc [MILK OF MAGNESIA conc] 10 ml PO TUFR@0900 #100 ud.liq 03/14/18 [Rx] Omeprazole [PriLOSEC] 20 mg PO DAILY #30 capsule. 03/14/18 [Rx] Ondansetron ODT [Zofran ODT] 4 mg SL Q8HR PRN #10 tab.rapdis 03/14/18 [Rx] Polyethylene Glycol 3350 [MiraLAX] 17 gm PO DAILY #20 powd.pack 03/14/18 [Rx] Spironolactone [Aldactone] 75 mg PO 0800,1200 #180 tablet 03/14/18 [Rx] Tamsulosin [Flomax] 0.4 mg PO HS #30 capsule 03/14/18 [Rx] ALPRAZolam [Xanax 1 MG Tablet] 1 tab PO TID PRN 03/22/18 [History] Atenolol [Tenormin] 12.5 mg PO BID 03/22/18 [History] Atorvastatin Calcium 80 mg PO HS 03/22/18 [History] Bumetanide [Bumex] 1 mg PO 1200 03/22/18 [History] Bumetanide [Bumex] 2 mg PO QAM 03/22/18 [History] Insulin ASPART [NovoLOG] 0 unit SQ TIDWM 03/22/18 [History] Insulin Glargine,Hum.rec.anlog [Lantus Solostar] 100 unit SQ QAM 03/22/18 [History] Insulin Glargine,Hum.rec.anlog [Lantus Solostar] 200 unit SQ QPM 03/22/18 [History] Levothyroxine [Synthroid] 75 mcg PO QAM 03/22/18 [History] Lidocaine 2 patch TP Q24H 03/22/18 [History] Miconazole Powder 1 appl TP BID 03/22/18 [History] Sennosides/Docusate Sodium [Senna Plus] 4 tab PO DAILY PRN 03/22/18 [History] Morphine Sulfate [Arymo ER] 15 mg PO TID 03/23/18 [History] Oxycodone HCl/Acetaminophen [Percocet 5-325 mg Tablet] 1 tab PO Q12H PRN 03/23/18 [History] Allergy/AdvReac Type Severity Reaction Status Date / Time clindamycin Allergy Hives Verified 02/26/16 07:07 gabapentin [From Neurontin] Allergy See Verified 11/20/15 20:15 Comments hydromorphone [From Dilaudid] Allergy See Verified 11/20/15 20:15 Comments ketorolac [From Toradol] Allergy See Verified 11/20/15 20:15 Comments All Systems PM: A 10-system review of systems was performed and is negative for pertinent findings except as documented above in the HPI. - Constitutional Vitals: Temp Pulse Resp BP Pulse Ox 98.1 F 69 8 150/64 30 02/18/19 13:16 02/18/19 13:16 02/18/19 13:58 02/18/19 13:16 02/18/19 13:58 Internal Med - H&P Results - Labs CBC & Chem 7: 02/18/19 13:28 Labs: Short CBC 02/18/19 Range/Units 13:28 WBC 12.4 H (4.3-11.1) K/mcL Hgb 8.8 L (12.9-16.9) g/dL Hct 28.0 L (37.5-50.1) % Plt Count 279 (140-400) K/mcL Neutrophils # 9.1 H (1.6-8.9) K/mcL Liver Function 02/18/19 Range/Units 13:28 Total Bilirubin 0.4 (0.3-1.0) mg/dL Direct Bilirubin 0.1 (0.0-0.2) mg/dL AST 24 (13-39) Units/L ALT 22 (7-52) Units/L Alkaline Phosphatase 170 H (34-104) Units/L Albumin 3.5 (3.5-5.7) g/dL - Impressions ITS Impressions Chest X-Ray 02/18/19 13:15 IMPRESSION: 1. Limited examination as described above. 2. Obscuration of the left hemidiaphragm which may be on the basis of atelectasis, pleural effusion or an infectious/inflammatory process. This could be further evaluated via dedicated PA and lateral views of the chest when the patient is better able to tolerate imaging. 3. Likely chronic right pleural thickening. D/ / Genaro Gee / Genaro Gee Interpreting Provider: Genaro Gee - Time Spent With Patient Total time spent is greater than 50% in coordination of care (as documented) at patient's floor/unit and/or counseling patient:
[2019-02-18] MEDS ORDERED: Naloxone 0.4 MG/ML INJ IVP PRN (16:19)
[2019-02-18 16:20] LABS: BUN/Creatinine Ratio 45 (6-26); Blood Urea Nitrogen 90 mg/dL (6-20); Calcium 9.7 mg/dL (8.6-10.3); Carbon Dioxide 36 mEq/L (23-29); Chloride 87 mEq/L (98-107); Glucose 321 mg/dL (70-105); Osmolality,Calculated 318 (280-300); Potassium 3.7 mEq/L (3.5-5.1); Sodium 134 mEq/L (136-145); eGFR For African Americans 42 (> 60); eGFR For Non-African Americans 35 (> 60)
[2019-02-18 16:21] LABS: Troponin I < 0.03 ng/mL (< 0.04)
--- NOTE | 2019-02-18 16:48 | Internal Med History&Physical ---
Date of Encounter: 02/18/19 Time of Encounter: 16:37 Internal Medicine - H&P: HPI Chief complaint: Shortness of breath Admitted From: Home Plans for Post Hospital Care: Home History of present illness: Mr. Arreola is a 58 year old male morbid obesity with a BMI of 70.6 , diabetes mellitus type 2 poorly controlled on insulin since age 35, CKD3, bilateral venous stasis, obstructive sleep apnea who presented to [facility] with complain of SOB. as per patient his SOB started about 1 week ago and is progressively worsening. his SOB is also associated with worsening bilateral lower extremity edema and abdominal wall swelling. he is bed bound due to his morbid obesity. he called his Doctor at the [facility] and IV lasix was ordered for his home nurse however they were unable to obtain IV line. he believe that his SOB is due to his abdominal wall swelling since its pushing his abdomen in his chest. as per patient he has had operation at the [facility] for lymphedema of the left side of his abdomen however it persists on the left side. he has been seen at [facility] for the abdominal wall cellulitis in mar. he dneies fever, chills, chest pain palpitations, N/v/D. has no calf tenderness or history of blood clots in maru past. while in the Ed D-dimer as negative. his CXR could not rule out effusion vs PNA vs atelectasis. was endorsed for admission for SOB and abdominal wall cellulitis Past Med Surg Social Fam HX - Past Medical History Medical history: diabetes, hypertension, renal disease Additional medical history: obesity Psychiatric history: anxiety, depression - Past Surgical History Additional surgical history: apenalectomy - Social History Smoking Status: Never smoker Smokeless Tobacco Status: No Alcohol use: none Drug use: none - Family History Grandfather Hx Family Endocrine Disorder: Yes (DM) Internal Medicine - H&P: Meds RX: Calcitriol [Rocaltrol] 0.25 mcg PO 1200 #30 capsule 03/14/18 [Rx] RX: Cyanocobalamin (B-12) [Vitamin B12] 1,000 mcg PO DAILY #30 tablet 03/14/18 [Rx] RX: Fluticasone Propionate [24 Hour Allergy] 2 spray NS HS #1 spray.susp 03/14/18 [Rx] RX: Atenolol [Tenormin] 25 mg PO QAM 03/22/18 [History] RX: Atorvastatin Calcium 80 mg PO HS 03/22/18 [History] RX: Bumetanide [Bumex] 2 mg PO BID 03/22/18 [History] RX: Insulin Glargine,Hum.rec.anlog [Lantus Solostar] 100 unit SQ BID 03/22/18 [History] RX: Levothyroxine [Synthroid] 75 mcg PO QAM 03/22/18 [History] RX: Lidocaine 2 patch TP Q24H PRN 03/22/18 [History] Aspirin [Lo-Dose Aspirin EC] 81 mg PO Q48H 02/18/19 [History] Atenolol [Tenormin] 12.5 mg PO DAILY 02/18/19 [History] Dicyclomine Hcl [Bentyl] 20 mg PO BID PRN 02/18/19 [History] DiphenhydraMINE [Benadryl] 25 mg PO BID 02/18/19 [History] Ipratropium/Albuterol Neb [Duoneb] 3 ml IH Q4HR PRN 02/18/19 [History] LORazepam [Ativan] 1 mg PO Q4HR PRN 02/18/19 [History] Miconazole Nitrate [Anti-Fungal Powder] 1 applic TP MOWEFR 02/18/19 [History] Omeprazole [PriLOSEC] 20 mg PO DAILY 02/18/19 [History] OxyCODONE/APAP 10/325 [Percocet 10/325 MG] 1 each PO Q6HR PRN 02/18/19 [History] RX: Docusate [Colace] 400 mg PO HS 02/18/19 [History] RX: Glucagon,Human Recombinant [Glucagon Emergency Kit] 1 vial IM AD PRN 02/18/19 [History] RX: Insulin Regular U-500 [HumuLIN R U-500] 150 unit 02/18/19 [History] RX: Loperamide [Imodium] 2 mg PO TID PRN MDD 4 02/18/19 [History] RX: MOM Conc [MILK OF MAGNESIA conc] 10 ml PO DAILY PRN 02/18/19 [History] RX: Polyethylene Glycol 3350 [MiraLAX] 17 gm PO DAILY PRN 02/18/19 [History] RX: traZODone [TraZODone] 50 mg PO HS PRN 02/18/19 [History] Sennosides [Senna] 8.6 mg PO BID 02/18/19 [History] metOLazone [Zaroxolyn] 2.5 mg PO QMWF 02/18/19 [History] Allergy/AdvReac Type Severity Reaction Status Date / Time clindamycin Allergy Hives Verified 02/26/16 07:07 gabapentin [From Neurontin] Allergy See Verified 11/20/15 20:15 Comments hydromorphone [From Dilaudid] Allergy See Verified 11/20/15 20:15 Comments ketorolac [From Toradol] Allergy See Verified 11/20/15 20:15 Comments All Systems PM: A 10-system review of systems was performed and is negative for pertinent findings except as documented above in the HPI. - Constitutional Vitals: Temp Pulse Resp BP Pulse Ox 98.1 F 69 8 150/64 30 02/18/19 13:16 02/18/19 13:16 02/18/19 13:58 02/18/19 13:16 02/18/19 13:58 Exam: General: Patient is alert, oriented, no acute distress, morbidly obese, speaks in full sentences Head: atraumatic, normocephalic, Eye: normal appearance, PERRL, no scleral icterus, no conjunctival injection ENT: mucous membranes moist, normal external ear exam Neck: normal inspection, trachea midline, full ROM, no carotid bruits Chest: normal inspection, symmetric chest rise Respiratory: Decreased breath sounds secondary to body habitus, no wheezing or crackles appreciated Cardiovascular: Distant heart sounds secondary to body habitus, Regular rate and rhythm. s1 and s2 No clicks, rubs, gallops, or murmors. Abdomen: Morbidly obese abdomen, he has a 24 cm x 24 cm area of erythema, warmth, small area of purulent drainage, foul-smelling, could not appreciate induration. Bowel sounds present normoactive x-4 quadrants. Abdomen is soft,no Epigastric tenderness. No guarding or rebound. No organomegaly noted, musculoskeletal: Spontaneously moving all extremities. Bilateral lower extremity edema left greater than right, has erythema about 5 x 5 cm with petechiae on bilateral shins bilateral medial thighs have erythema and blisters Skin: warm, dry, intact. Neuro: Alert and oriented x4. Sensation light touch intact. Cranial nerves 2- 12 is intact. Not aphasic. Psych: Patient's affect is normal no SI or HI Internal Med - H&P Results - Labs CBC & Chem 7: 02/18/19 13:28 02/18/19 13:28 Labs: Short CBC 02/18/19 Range/Units 13:28 WBC 12.4 H (4.3-11.1) K/mcL Hgb 8.8 L (12.9-16.9) g/dL Hct 28.0 L (37.5-50.1) % Plt Count 279 (140-400) K/mcL Neutrophils # 9.1 H (1.6-8.9) K/mcL BMP 02/18/19 13:28 Sodium 134 L Potassium 3.7 Chloride 87 L Carbon Dioxide 36 H BUN 90 H Creatinine 1.99 H Glucose 321 H Calcium 9.7 Cardiac Enzymes 02/18/19 Range/Units 13:28 Troponin I < 0.03 (< 0.04) ng/mL Liver Function 02/18/19 Range/Units 13:28 Total Bilirubin 0.4 (0.3-1.0) mg/dL Direct Bilirubin 0.1 (0.0-0.2) mg/dL AST 24 (13-39) Units/L ALT 22 (7-52) Units/L Alkaline Phosphatase 170 H (34-104) Units/L Albumin 3.5 (3.5-5.7) g/dL - EKG Data EKG shows normal: sinus rhythm (IVCD, LAD, nonspecific st-t abnormalities ) - EKG Data Prior EKG available for review: yes When compared to previous EKG: there is no significant change - Impressions ITS Impressions Chest X-Ray 02/18/19 13:15 IMPRESSION: 1. Limited examination as described above. 2. Obscuration of the left hemidiaphragm which may be on the basis of atelectasis, pleural effusion or an infectious/inflammatory process. This could be further evaluated via dedicated PA and lateral views of the chest when the patient is better able to tolerate imaging. 3. Likely chronic right pleural thickening. D/ / Genaro Gee / Genaro Gee Interpreting Provider: Genaro Gee - Assessment and Plan (1) Cellulitis Current Visit: No Status: Acute Assessment and plan: has had multiple admissions for similar complaint Patient unable to get a CT due to his morbid obesity and ultrasound was ordered IV vancomycin and cefepime ESR,CRP, CPK blood cx MRSA swab topical antifungals ID consulted will follow recommendations wound care consulted Qualifiers: Site of cellulitis: trunk Site of cellulitis of trunk: abdominal wall Qualified Code(s): L03.311 - Cellulitis of abdominal wall (2) Acute renal failure superimposed on stage 3 chronic kidney disease Current Visit: Yes Status: Acute Assessment and plan: most likely secondary hypoperfusion from fluid overload has CKD 3 at baseline creatinine at baseline is about 1.75 currently 1.99 appears in volume overload continue with IV diuretics from AM - watch renal functions nephrology to assist with diuresing strict intake and out put UA, urine lytes stat Qualifiers: Acute renal failure type: unspecified Qualified Code(s): N17.9 - Acute kidney failure, unspecified; N18.3 - Chronic kidney disease, stage 3 (moderate) (3) Hyponatremia Current Visit: Yes Status: Acute Assessment and plan: hypervolemic hyponatremia received one dose of IV lasix in the ED follow AM labs continue with IV diuretics if renal function is stable strict intake and out put daily weights (4) Anemia Current Visit: No Status: Acute Assessment and plan: chronic anemia h/H is about baseline continue to monitor type and screen, iron panel, folate and b12 Qualifiers: Anemia type: unspecified type Qualified Code(s): D64.9 - Anemia, unspecified (5) Diabetic neuropathy Current Visit: No Status: Acute Assessment and plan: continue with home medications once verified Qualifiers: Diabetes mellitus type: type 2 Diabetes mellitus complication detail: diabetic polyneuropathy Qualified Code(s): E11.42 - Type 2 diabetes mellitus with diabetic polyneuropathy (6) Edema of left lower extremity Current Visit: No Status: Acute Assessment and plan: LLE edema > right lower extremity edema DVT study ordered (7) Lymphedema in adult patient Current Visit: No Status: Acute Assessment and plan: of the left lower abdomen will follow US of abdomen (8) RICK (obstructive sleep apnea) Current Visit: No Status: Acute Assessment and plan: continue with bipap- home setting (9) Type 2 diabetes mellitus Current Visit: No Status: Acute Assessment and plan: per history it has been poorly controlled continue home long acting and sliding scale insulin Qualifiers: Diabetes mellitus skilled nursing insulin use: with middle or intermediate school principal use Diabetes mellitus complication status: with neurologic complications Diabetes mellitus complication detail: with polyneuropathy Qualified Code(s): E11.42 - Type 2 diabetes mellitus with diabetic polyneuropathy; 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
--- NOTE | 2019-02-18 17:30 | Infectious Disease Consult ---
Infectious Disease-Consult - Encounter Date/Time Date of Encounter: 02/19/19 Time of Encounter: 10:25 - Data of Consult Patient: known to practice within the last 3 years Reason for consult: "infected flank" Consult date: 02/18/19 Requesting Physician: Vera Chin Primary Care Provider: THADDEUS [place] - [facility] HPI: Patient is a 58-year-old gentleman with past medical history significant for diabetes mellitus type 2, hypertension, renal disease and morbid obesity with a BMI of 70 and a obstructive sleep apnea presented to [place] with shortness of breath. Patient is a 58-year-old gentleman known to my service was seen before who is at [facility] may be also is in regards is to practice up in [place] has morbid ob esity and venous stasis and lymphedema in the lower extremities. Patient apparently has been having severe shortness of breath and he attributes it to fluid overload and he states he will return [place] to get some fluid off. Patient denies any fevers chills or any other complaint. No headache. No chest pain or shortness of breath. Patient does use of BiPAP because of restrictive apnea. Patient to discuss following [facility] macerated [facility] under the folds of his right breast. To stage IV ulcer. Patient denies any other wounds on his buttock or other bedsores. Since admission, temperature 98.1, no tachycardia and no tachypnea. Presenting labs revealed WBC of 12.4, ESR 68, sodium 134 potassium 3.7 BUN 90 and creatinine 1.99 Since admission patient has been refusing his medications, not allowing nursing and the wound nurse to change his dressing. Underlying the physician to evaluate. With me though, patient was pleasant and let me do my full exam and he was pretty receptive - ROS Review of Systems: 10 point review of systems done, negative other for what is mentioned in history of present illness. - Results CBC & Chem 7: 02/19/19 04:49 02/19/19 04:49 - Exam Vitals: Temp Pulse Resp BP Pulse Ox 98.1 F 69 16 150/64 97 02/18/19 13:16 02/18/19 13:16 02/18/19 16:34 02/18/19 13:16 02/18/19 16:34 Exam: GENERAL: Laying in bed, appears comfortable. HEAD: Normocephalic atraumatic EYES: PERRLA, EOMI, no conjunctival hemorrhage, sclera anicteric ENT: Mucous membranes moist, no oral thrush NECK: Supple. No meningeal signs. No masses LUNGS: Chest expanding symmetrically. Lungs sounds audible both lung collins. No wheezing, no rhonchi. very limited exam CV: RRR, S1S2, ABDOMEN: Soft, nontender, nondistended. Bowel sounds audible EXTREMITY: Adequate perfusion. No joint effusion. bilateral lower extremity venous stasis with no obvious infection SKIN: bilaeral lower extremities venous stasis NEURO: Awake alert oriented 3. No obvious focal deficit PSYCH: Calm and appropriate. No agitation. Calcitriol [Rocaltrol] 0.25 mcg PO 1200 #30 capsule 03/14/18 [Rx] Cyanocobalamin (B-12) [Vitamin B12] 1,000 mcg PO DAILY #30 tablet 03/14/18 [Rx] Fluticasone Propionate [24 Hour Allergy] 2 spray NS HS #1 spray.susp 03/14/18 [Rx] Atenolol [Tenormin] 25 mg PO QAM 03/22/18 [History] Atorvastatin Calcium 80 mg PO HS 03/22/18 [History] Bumetanide [Bumex] 2 mg PO 0800,1400 03/22/18 [History] Insulin Glargine,Hum.rec.anlog [Lantus Solostar] 100 unit SQ BID 03/22/18 [History] Levothyroxine [Synthroid] 75 mcg PO QAM 03/22/18 [History] Lidocaine 2 patch TP Q24H PRN 03/22/18 [History] Aspirin [Lo-Dose Aspirin EC] 81 mg PO Q48H 02/18/19 [History] Atenolol [Tenormin] 12.5 mg PO QPM 02/18/19 [History] Dicyclomine Hcl [Bentyl] 20 mg PO BID PRN 02/18/19 [History] DiphenhydraMINE [Benadryl] 25 mg PO BID 02/18/19 [History] Docusate [Colace] 400 mg PO HS 02/18/19 [History] Glucagon,Human Recombinant [Glucagon Emergency Kit] 1 vial IM AD PRN 02/18/19 [History] Insulin Regular U-500 [HumuLIN R U-500] 150 unit SQ TID 02/18/19 [History] Ipratropium/Albuterol Neb [Duoneb] 3 ml IH Q4HR PRN 02/18/19 [History] LORazepam [Ativan] 1 mg PO Q4HR PRN 02/18/19 [History] Loperamide [Imodium] 2 mg PO TID PRN MDD 4 02/18/19 [History] MOM Conc [MILK OF MAGNESIA conc] 10 ml PO DAILY PRN 02/18/19 [History] Miconazole Nitrate [Anti-Fungal Powder] 1 applic TP MOWEFR 02/18/19 [History] Omeprazole [PriLOSEC] 20 mg PO DAILY 02/18/19 [History] OxyCODONE/APAP 10/325 [Percocet 10/325 MG] 1 each PO Q6HR PRN 02/18/19 [History] Polyethylene Glycol 3350 [MiraLAX] 17 gm PO DAILY PRN 02/18/19 [History] Sennosides [Senna] 8.6 mg PO BID 02/18/19 [History] metOLazone [Zaroxolyn] 2.5 mg PO MOWEFR 02/18/19 [History] traZODone [TraZODone] 50 mg PO HS PRN 02/18/19 [History] Allergy/AdvReac Type Severity Reaction Status Date / Time clindamycin Allergy Hives Verified 02/26/16 07:07 gabapentin [From Neurontin] Allergy See Verified 11/20/15 20:15 Comments hydromorphone [From Dilaudid] Allergy See Verified 11/20/15 20:15 Comments ketorolac [From Toradol] Allergy See Verified 11/20/15 20:15 Comments vancomycin AdvReac Unknown See Verified 02/18/19 22:24 Comments - Assessment and Plan (1) Wound, open, abdominal wall, anterior Current Visit: No Status: Acute stage IV with no erythema or edema. no granulation tissue at the bases bloody drainage patient refusing rcommendations from our wound care nurse He'd rather do what the [facility] is asking him to request VA records and continue per their protocol Qualifiers: Encounter type: subsequent encounter Qualified Code(s): S31.109D - Unspecified open wound of abdominal wall, unspecified quadrant without penetration into peritoneal cavity, subsequent encounter SNOMED Code(s): 064997226 (2) Venous stasis dermatitis of both lower extremities Current Visit: Yes Status: Acute concern for early sepsis hard to distinguish we will stop IV antibiotics start on oral augmentin and doxycycline duration of treatment 7-10 days no further recommendations from our perspective, we will sign off SNOMED Code(s): 42391759 (3) Pickwickian syndrome Current Visit: Yes Status: Acute SNOMED Code(s): 261325281 (4) Morbid (severe) obesity due to excess calories Current Visit: No Status: Chronic SNOMED Code(s): 756639038, 759753375 (5) Allergy to antibiotic Current Visit: No Status: Acute SNOMED Code(s): 628796459634735 Past Med Surg Social Fam HX - Past Medical History Medical history: diabetes, hypertension, renal disease Additional medical history: obesity Psychiatric history: anxiety, depression - Past Surgical History Additional surgical history: apenalectomy - Social History Smoking Status: Never smoker Smokeless Tobacco Status: No Alcohol use: none Drug use: none - Family History Grandfather Hx Family Endocrine Disorder: Yes (DM) Mother Name: Agata Lott Age: 84 Family Member Ethnicity: Non- Living Status: Still Living Hx Family Cancer: Yes (breast cancer) Consult Discharge Plan - Plan Referrals: [facility],PCP [Primary Care Provider] -
[2019-02-18 17:35] LABS: C-Reactive Protein 43 mg/L (Less than 10); Creatine Kinase 25 Units/L (30-223)
[2019-02-18] MEDS ORDERED: Cefepime HCl 2,000 MG in 0.9 % Sodium Chloride Mini Bag 100 ML IVPB SCH (18:00)
[2019-02-18] MEDS ORDERED: D5% in Water 1,000 ML IVC PRN (18:49)
[2019-02-18] MEDS ORDERED: *HR* Dextrose 50 % in Water (Syg) 50 ML SYRINGE IVP PRN (18:49)
[2019-02-18] MEDS ORDERED: Dextrose Gel 15 GM/37.5 ML TUBE PO PRN ×2 (18:49)
[2019-02-18] MEDS ORDERED: traZODone 50 MG TABLET PO PRN (19:02)
[2019-02-18] MEDS ORDERED: Ipratropium/Albuterol Neb 3 ML IH PRN (19:02)
[2019-02-18] MEDS ORDERED: *HR* LORazepam 1 MG TABLET PO PRN (19:02)
[2019-02-18] MEDS ORDERED: MOM Conc 10 ML UD.LIQ PO PRN (19:02)
[2019-02-18] MEDS ORDERED: metOLazone 2.5 MG TABLET PO SCH (19:15)
[2019-02-18] MEDS: *HR* Heparin 5,000 UNIT/ML VIAL SQ SCH ×2 (19:39→22:29)
[2019-02-18] MEDS ORDERED: NON-FORMULARY MEDICATION 1 EACH EACH (Insulin Glargine,Hum.Rec.Anlog [Lantus Solostar] 100 SQ SCH (21:00)
[2019-02-18] MEDS: Fluticasone Propionate Nasal 50 MCG/SPRAY BOTTLE NS SCH (22:21)
[2019-02-18] MEDS: Cefepime HCl 2,000 MG in Water for inj. (sterile) 20 ML IVP SCH (22:30)
[2019-02-18] MEDS: Sennosides 8.6 MG TABLET PO SCH (22:30)
[2019-02-18] MEDS: Insulin DETEMIR 100 UNIT/ML X5UNITS SQ SCH (22:45)
[2019-02-18] MEDS: Insulin LISPRO 300 UNITS/3 ML VIAL SQ SCH (23:00)
[2019-02-18 23:47] LABS: Bilirubin,Urine Negative (Negative); Blood,Urine Negative (Negative); Clarity,Urine Clear (Clear); Color,Urine Yellow (Yellow); Glucose,Urine (UA) 500 mg/dL (Normal); Ketones,Urine Negative (Negative); Leukocyte Esterase,Urine Negative (Negative); Nitrite,Urine Negative (Negative); PH,Urine 6.5 pH Units (5.0-8.0); Protein,Urine Negative (Neg-Trace); Specific Gravity,Urine 1.012 (1.010-1.025); Urobilinogen,Urine Normal (Normal)
[2019-02-18 23:52] LABS: Potassium,Urine 12.4 mEq/L; Sodium, Urine 89.6 mEq/L
[2019-02-19 00:04] LABS: Amphetamine Screen,Urine Negative ng/mL (Cutoff=1000); Barbiturate Screen,Urine Negative ng/mL (Cutoff=200); Benzodiazepines Screen,Urine Negative ng/mL (Cutoff=200); Cannabinoid Screen,Urine Negative ng/mL (Cutoff = 50); Cocaine Screen,Urine Negative ng/mL (Cutoff= 300); Opiate Screen,Urine Positive ng/mL (Cutoff=300); Phencyclidine Screen,Urine Negative ng/mL (Cutoff=25)
[2019-02-19] MEDS: *HR* Heparin 5,000 UNIT/ML VIAL SQ SCH ×3 (05:39→22:23)
[2019-02-19 05:49] LABS: Basophils % 0.3 %; Eosinophils # 0.5 K/mcL (0.0-0.6); Eosinophils % 4.4 %; Hematocrit 27.2 % (37.5-50.1); Hemoglobin 8.5 g/dL (12.9-16.9); Immature Granulocytes % 0.9 % (0-4); Lymphocytes # 2.2 K/mcL (0.6-4.6); Lymphocytes % 18.7 %; Mean Corpuscular HGB Conc 31.3 g/dL (31.6-35.5); Mean Corpuscular Hemoglobin 28.6 pg (28.0-33.3); Mean Corpuscular Volume 91.6 fL (83.0-100.0); Mean Platelet Volume 9.8 fL (9.4-12.4); Monocytes # 0.9 K/mcL (0.0-1.3); Monocytes % 7.9 %; Neutrophils # 7.9 K/mcL (1.6-8.9); Platelet Count 274 K/mcL (140-400); Red Blood Count 2.97 M/mcL (4.19-5.50); Red Cell Distribution Width 14.3 % (11.5-14.5); Segmented Neutrophils % 67.8 %; White Blood Count 11.7 K/mcL (4.3-11.1)
[2019-02-19 06:15] LABS: Calcium 9.4 mg/dL (8.6-10.3); Potassium 3.2 mEq/L (3.5-5.1)
[2019-02-19 06:17] LABS: % Iron Saturation 8 % (20-55); Iron 32 mcg/dL (65-175); Transferrin 290 mg/dL (203-362)
[2019-02-19 06:27] LABS: Ferritin 20 ng/mL (20-250)
[2019-02-19 06:37] LABS: Folate > 22.3 ng/mL (3.0-16.0); Vitamin B12 926 pg/mL (250-1100)
[2019-02-19] MEDS: Insulin LISPRO 300 UNITS/3 ML VIAL SQ SCH ×5 (07:35→22:23)
[2019-02-19 08:13] LABS: Estimated Average Glucose 263 mg/dl
[2019-02-19] MEDS ORDERED: Aminoglycoside Consult 1 EACH MC ONE (08:20)
--- NOTE | 2019-02-19 08:20 | Nephrology Consult Note ---
Date of Encounter: 02/19/19 Time of Encounter: 08:40 Assessment and Plan (1) Cellulitis Current Visit: No Status: Acute Possible abdominal wall cellulitis Was given 1 dose of cefepime in the ED ID has been consulted and appreciate recommendations Vancomycin has been ordered but is on hold Continue renally protective strategies and renally dosed medications Qualifiers: Site of cellulitis: trunk Site of cellulitis of trunk: abdominal wall Qualified Code(s): L03.311 - Cellulitis of abdominal wall (2) Anemia Current Visit: No Status: Acute Daily secondary to chronic disease Hemoglobin of 10-11 Qualifiers: Anemia type: unspecified type Qualified Code(s): D64.9 - Anemia, unspecified (3) Acute renal failure superimposed on stage 3 chronic kidney disease Current Visit: Yes Status: Acute Likely secondary to fluid overload as well as use of bumex and metolazone His metolazone dosage has been Monday we will hold this Continue to check electrolytes and replace as necessary Fluid and sodium restriction Use of lowest dose diuretic for fluid status Continue renally ejective strategies and renally dose any medications Qualifiers: Acute renal failure type: unspecified Qualified Code(s): N17.9 - Acute kidney failure, unspecified; N18.3 - Chronic kidney disease, stage 3 (moderate) (4) Hyponatremia Current Visit: Yes Status: Resolved This has resolved On presentation sodium was 134 and is now 137 Continue to monitor History of Present Illness - Reason for Consult Consult date: 02/18/19 Acute Kidney Injury Requesting physician: Indy Bejarano - Chief Complaint Shortness of breath - History of Present Illness Mr. Arreola is a 58-year-old male with morbid obesity, diabetes type 2 which is poorly controlled with insulin, chronic kidneys disease stage III, bilateral venous stasis, LSA. Presented to [facility] with complaint of shortness of breath which started approximately 1 week ago and had been getting worse. He also stated that he had worsening bilateral lower extremity edema and abdominal swelling. Patient is bedbound, his homecare nurse instructed him to [facility] however they were not able to get IV access. He was admitted for abdominal wall cellulitis and shortness of breath. . Patient does have lymphedema in the left side of his abdomen that is persistent even after surgery. states within the last few months he has been treated for cellulitis with vancomycin and cefepime. His original CKD diagnosis was made after he had been given contrast while on metformin approximately 3 years ago. He states that he had no kidney issues previous to this. His kidney function had decreased slightly due to vancomycin and cefepime in the past. Patient does not have family history of renal failure Patient does not have a history of smoking, alcohol use or drug use Patient denies any nausea, vomiting, abdominal pain, pain with urination, fevers/chills Patient is on Calcitrol, cyanocobalamin, atenolol, atorvastatin, Bumex Percocet 10 325, metolazone Initial labs showed white blood cell count of 12.4, hemoglobin of 8.8 which is in patients average, sodium 134 has improved to 137, potassium 3.2 decreased from 3.7 on admission, BUN of 94, creatinine 2.09 increased from 1.99 on admission GFR of 33 patient's baseline is in the low 40s, hemoglobin A1c of 10.8, iron of 32, percent saturation of 8, folate greater than 22.3 vitamin B12 926 Urine showed yellow, clear, pH 6.5, specific gravity 1.02, negative for protein, 500 glucose, negative for ketones blood nitrite bilirubin urobilinogen and leukocyte esterase, osmolality of 325, sodium of 89.6, potassium of 12.4, chloride of 82 and urine tox screen was positive for opiates which is in line with his home medications Patient's intake since admission has been 200 miles with 700 mL output of urine Vital signs blood pressure slightly elevated at 149/64 currently on BiPAP 2.5 L of oxygen, temperature 97.6, pulse 63, respirations 12 Weight on admission 236.2 kg BMI of 68.7 Imaging abdominal ultrasound was done showing no evidence of cystic or solid mass in the area of concern left lower quadrant of the abdomen Patient was given 1 dose of cefepime in the ER, vancomycin was ordered but is on hold currently Past Med Surg Social Fam HX - Past Medical History Medical history: diabetes, hypertension, renal disease Additional medical history: obesity Psychiatric history: anxiety, depression - Past Surgical History Additional surgical history: apenalectomy, degenerative hip - Social History Smoking Status: Never smoker Smokeless Tobacco Status: No Alcohol use: occasionally Drug use: none - Family History Grandfather Hx Family Endocrine Disorder: Yes (DM) Mother Name: Agata Lott Age: 84 Family Member Ethnicity: Non- Living Status: Still Living Hx Family Cancer: Yes (breast cancer) Medications and Allergies Calcitriol [Rocaltrol] 0.25 mcg PO 1200 #30 capsule 03/14/18 [Rx] Cyanocobalamin (B-12) [Vitamin B12] 1,000 mcg PO DAILY #30 tablet 03/14/18 [Rx] Fluticasone Propionate [24 Hour Allergy] 2 spray NS HS #1 spray.susp 03/14/18 [Rx] Atenolol [Tenormin] 25 mg PO QAM 03/22/18 [History] Atorvastatin Calcium 80 mg PO HS 03/22/18 [History] Bumetanide [Bumex] 2 mg PO 0800,1400 03/22/18 [History] Insulin Glargine,Hum.rec.anlog [Lantus Solostar] 100 unit SQ BID 03/22/18 [History] Levothyroxine [Synthroid] 75 mcg PO QAM 03/22/18 [History] Lidocaine 2 patch TP Q24H PRN 03/22/18 [History] Aspirin [Lo-Dose Aspirin EC] 81 mg PO Q48H 02/18/19 [History] Atenolol [Tenormin] 12.5 mg PO QPM 02/18/19 [History] Dicyclomine Hcl [Bentyl] 20 mg PO BID PRN 02/18/19 [History] DiphenhydraMINE [Benadryl] 25 mg PO BID 02/18/19 [History] Docusate [Colace] 400 mg PO HS 02/18/19 [History] Glucagon,Human Recombinant [Glucagon Emergency Kit] 1 vial IM AD PRN 02/18/19 [History] Insulin Regular U-500 [HumuLIN R U-500] 150 unit SQ TID 02/18/19 [History] Ipratropium/Albuterol Neb [Duoneb] 3 ml IH Q4HR PRN 02/18/19 [History] LORazepam [Ativan] 1 mg PO Q4HR PRN 02/18/19 [History] Loperamide [Imodium] 2 mg PO TID PRN MDD 4 02/18/19 [History] MOM Conc [MILK OF MAGNESIA conc] 10 ml PO DAILY PRN 02/18/19 [History] Miconazole Nitrate [Anti-Fungal Powder] 1 applic TP MOWEFR 02/18/19 [History] Omeprazole [PriLOSEC] 20 mg PO DAILY 02/18/19 [History] OxyCODONE/APAP 10/325 [Percocet 10/325 MG] 1 each PO Q6HR PRN 02/18/19 [History] Polyethylene Glycol 3350 [MiraLAX] 17 gm PO DAILY PRN 02/18/19 [History] Sennosides [Senna] 8.6 mg PO BID 02/18/19 [History] metOLazone [Zaroxolyn] 2.5 mg PO MOWEFR 02/18/19 [History] traZODone [TraZODone] 50 mg PO HS PRN 02/18/19 [History] Allergy/AdvReac Type Severity Reaction Status Date / Time clindamycin Allergy Hives Verified 02/26/16 07:07 gabapentin [From Neurontin] Allergy See Verified 11/20/15 20:15 Comments hydromorphone [From Dilaudid] Allergy See Verified 11/20/15 20:15 Comments ketorolac [From Toradol] Allergy See Verified 11/20/15 20:15 Comments vancomycin AdvReac Unknown See Verified 02/18/19 22:24 Comments Review of Systems Constitutional: no chills, no fatigue, no fever(s) Cardiovascular: no chest pain Respiratory: dyspnea, no chest congestion Exam - Vital Signs Vital signs: Initial Vital Signs Temp Pulse Resp BP Pulse Ox 98.1 F 69 19 150/64 100 02/18/19 13:16 02/18/19 13:16 02/18/19 13:16 02/18/19 13:16 02/18/19 13:16 Vital Signs - Last 8 Hours Temp Pulse Resp BP Pulse Ox 02/19/19 05:05 98.6 F 62 22 151/69 96 02/19/19 00:46 98.2 F 71 16 144/55 99 Intake and Output 02/18/19 02/19/19 02/19/19 23:59 07:59 15:59 Intake Total 140 / 140 60 / 60 0 / 60 Output Total 700 / 700 0 / 700 Balance 140 / 140 -640 / -640 0 / -640 Intake: IV Fluids 20 Maxipime 2,000 MG In Water for 20 / 20 inj. (sterile) 20 ML @ 300 mls/ hr IVP Q12H [facility] Rx#:[id number] Oral 120 / 120 60 / 60 0 / 60 Output: Urine 700 / 700 0 / 700 Other: Weight 236.2 kg Blood Glucose* 453 245 202 Patient Weight 02/19/19 23:59 Weight 236.2 kg - General Appearance General appearance: well-developed, well-nourished, obese EENT: mucous membranes moist Neck: no JVD Respiratory: clear Cardiology: no murmurs, no rub, no gallops, edema, regular rate, regular rhythm Additional Comments: 3+ pitting bilateral lower extremities worse on left, abdominal edema noted in pannus Gastrointestinal: normoactive bowel sounds, no tenderness, no guarding Results - Lab Results 02/19/19 04:49 02/19/19 04:49 Most recent lab results 02/18/19 02/19/19 23:40 04:49 Calcium 9.4 Urine Sodium 89.6 Consult Discharge Plan - Plan Referrals: [facility] [Primary Care Provider] -
[2019-02-19] MEDS ORDERED: Furosemide 40 MG/4 ML VIAL IVP SCH (09:00)
[2019-02-19] MEDS: Cefepime HCl 2,000 MG in Water for inj. (sterile) 20 ML IVP SCH (09:18)
[2019-02-19] MEDS: Bumetanide 1 MG/4 ML VIAL IVP SCH ×2 (09:19→18:09)
[2019-02-19] MEDS: Cyanocobalamin (B-12) 1,000 MCG TABLET PO SCH (09:19)
[2019-02-19] MEDS: Sennosides 8.6 MG TABLET PO SCH ×2 (09:19→22:08)
[2019-02-19] MEDS: *HR* Insulin Regular U-500 500 UNIT/ML SQ SCH ×3 (09:20→18:13)
[2019-02-19] MEDS: Insulin DETEMIR 100 UNIT/ML X5UNITS SQ SCH ×2 (09:20→22:08)
[2019-02-19] MEDS: Nystatin POWDER 30 GM BOTTLE TP SCH (09:42)
--- NOTE | 2019-02-19 13:03 | Internal Med Progress Note ---
Hospitalist Progress Note - Encounter Date of Encounter: 02/19/19 Time of Encounter: 08:00 - Subjective Interval History: Patient was seen and examined at bedside. Is feeling better reports that his respiratory status is improved. He denies fever, chills, nausea, vomiting or diarrhea. Continues to make urine and has no difficulty, dysuria or pain while urinating. As per nursing staff. Refused medications and I discussed with him the importance of being compliant to the medications while in the hospital and he understands the knees agreeable to continue with medicines. Per nursing staff he had threatened to leave AGAINST MEDICAL ADVICE overnight i counseled him and he is willing to stay - Exam Vitals: Temp Pulse Resp BP Pulse Ox 97.6 F 63 12 149/64 97 02/19/19 08:19 02/19/19 08:19 02/19/19 08:19 02/19/19 08:19 02/19/19 08:19 Exam: General: Patient is alert, oriented, no acute distress, morbidly obese, speaks in full sentences Head: atraumatic, normocephalic, Eye: normal appearance, PERRL, no scleral icterus, no conjunctival injection ENT: mucous membranes moist, normal external ear exam Neck: normal inspection, trachea midline, full ROM, no carotid bruits Chest: normal inspection, symmetric chest rise Respiratory: Decreased breath sounds secondary to body habitus, no wheezing or crackles appreciated Cardiovascular: Distant heart sounds secondary to body habitus, Regular rate and rhythm. s1 and s2 No clicks, rubs, gallops, or murmors. Abdomen: Morbidly obese abdomen, he has a 24 cm x 24 cm area of erythema, warmth, small area of purulent drainage, foul-smelling, could not appreciate induration. Bowel sounds present normoactive x-4 quadrants. Abdomen is soft,no Epigastric tenderness. No guarding or rebound. No organomegaly noted, musculoskeletal: Spontaneously moving all extremities. Bilateral lower extremity edema left greater than right, has erythema about 5 x 5 cm with petechiae on bilateral shins bilateral medial thighs have erythema and blisters Skin: warm, dry, intact. Neuro: Alert and oriented x4. Sensation light touch intact. Cranial nerves 2- 12 is intact. Not aphasic. Psych: Patient's affect is normal no SI or HI - Assessment and Plan (1) Cellulitis Current Visit: No Status: Acute Assessment and Plan: has had multiple admissions for similar complaint Patient unable to get a CT due to his morbid obesity and ultrasound was ordered IV vancomycin and cefepime ESR 68,CRP 43, CPK 25 procalcitonin 0.47 blood cx in process MRSA swab pending topical antifungals ID consulted will follow recommendations wound care consulted (2) Acute renal failure superimposed on stage 3 chronic kidney disease Current Visit: Yes Status: Acute Assessment and Plan: most likely secondary hypoperfusion from fluid overload has CKD 3 at baseline creatinine at baseline is about 1.75 currently 1.99 appears in volume overload on bumex 2 mg BID at home along with metolazone- bumex changed to IV adn will hold metolazone continue with IV diuretics from AM - watch renal functions nephrology to assist with diuresing strict intake and out put (3) Hyponatremia Current Visit: Yes Status: Resolved Assessment and Plan: hypervolemic hyponatremia - resolved received one dose of IV lasix in the ED follow AM labs continue with IV diuretics if renal function is stable strict intake and out put daily weights (4) Anemia Current Visit: No Status: Acute Assessment and Plan: chronic anemia h/H is about baseline continue to monitor type and screen on file iron panel , folate and b12- noted (5) Diabetic neuropathy Current Visit: No Status: Acute Assessment and Plan: continue with home medications once verified (6) Edema of left lower extremity Current Visit: No Status: Acute Assessment and Plan: LLE edema > right lower extremity edema DVT study - appears to be negative for DVT and SVT. continue with diuresis as above (7) Lymphedema in adult patient Current Visit: No Status: Acute Assessment and Plan: of the left lower abdomen abdominal US No evidence of a cystic or solid mass in the area of concern left lower quadrant the abdomen. Given the clinical history contrast-enhanced CT imaging of the abdomen and pelvis is recommended for complete assessment. (8) RICK (obstructive sleep apnea) Current Visit: No Status: Acute Assessment and Plan: continue with bipap- home setting (9) Type 2 diabetes mellitus Current Visit: No Status: Acute Assessment and Plan: per history it has been poorly controlled A1c 10.8 continue home long acting and ACHS insulin refusing any sliding scale (10) Morbid obesity with BMI of 70 and over, adult Current Visit: No Status: Chronic Assessment and Plan: nutrition consult (11) DVT prophylaxis Current Visit: No Status: Acute Assessment and Plan: heparin sc - Time Spent with Patient Total time spent is greater than 50% in coordination of care (as documented) at patient's floor/unit and/or counseling patient: Internal Medicine: Result - Labs CBC & Chem 7: 02/19/19 04:49 02/19/19 04:49 Labs: Short CBC 02/18/19 02/19/19 Range/Units 13:28 04:49 WBC 12.4 H 11.7 H (4.3-11.1) K/mcL Hgb 8.8 L 8.5 L (12.9-16.9) g/dL Hct 28.0 L 27.2 L (37.5-50.1) % Plt Count 279 274 (140-400) K/mcL Neutrophils # 9.1 H 7.9 (1.6-8.9) K/mcL BMP 02/18/19 02/19/19 13:28 04:49 Sodium 134 L 137 Potassium 3.7 3.2 L Chloride 87 L 89 L Carbon Dioxide 36 H 35 H BUN 90 H 94 H Creatinine 1.99 H 2.09 H Glucose 321 H 236 H Calcium 9.7 9.4 Cardiac Enzymes 02/18/19 Range/Units 13:28 Troponin I < 0.03 (< 0.04) ng/mL Liver Function 02/18/19 Range/Units 13:28 Total Bilirubin 0.4 (0.3-1.0) mg/dL Direct Bilirubin 0.1 (0.0-0.2) mg/dL AST 24 (13-39) Units/L ALT 22 (7-52) Units/L Alkaline Phosphatase 170 H (34-104) Units/L Albumin 3.5 (3.5-5.7) g/dL Urine 02/18/19 Range/Units 23:40 Urine Color Yellow (Yellow) Urine Clarity Clear (Clear) Urine pH 6.5 (5.0-8.0) pH Units Ur Specific [place] 1.012 (1.010-1.025) Urine Protein Negative (Neg-Trace) mg/dL Urine Glucose (UA) 500 H (Normal) mg/dL - ABG Interpretation ABG results: PT/INR, D-dimer PT 11.0 Seconds (9.4-12.1) 02/18/19 13:28 254 ng/mLFEU (0-500) 02/18/19 13:28 - Impressions Impressions Chest X-Ray 02/18/19 13:15 IMPRESSION: 1. Limited examination as described above. 2. Obscuration of the left hemidiaphragm which may be on the basis of atelectasis, pleural effusion or an infectious/inflammatory process. This could be further evaluated via dedicated PA and lateral views of the chest when the patient is better able to tolerate imaging. 3. Likely chronic right pleural thickening. D/ / Genaro Gee / Genaro Gee Interpreting Provider: Genaro Gee Abdomen Ultrasound 02/18/19 17:02 IMPRESSION: No evidence of a cystic or solid mass in the area of concern left lower quadrant the abdomen. Given the clinical history contrast-enhanced CT imaging of the abdomen and pelvis is recommended for complete assessment. D/ / 02/18/2019 19:38:42 Barak Can MD / junaid Interpreting Provider: Barak Can MD Consult Discharge Plan - Plan Referrals: [facility] [Primary Care Provider] - ____ (1) Cellulitis Qualifiers: Site of cellulitis: trunk Site of cellulitis of trunk: abdominal wall Qualified Code(s): L03.311 - Cellulitis of abdominal wall (2) Acute renal failure superimposed on stage 3 chronic kidney disease Qualifiers: Acute renal failure type: unspecified Qualified Code(s): N17.9 - Acute kidney failure, unspecified; N18.3 - Chronic kidney disease, stage 3 (moderate) (4) Anemia Qualifiers: Anemia type: unspecified type Qualified Code(s): D64.9 - Anemia, unspecified (5) Diabetic neuropathy Qualifiers: Diabetes mellitus type: type 2 Diabetes mellitus complication detail: diabetic polyneuropathy Qualified Code(s): E11.42 - Type 2 diabetes mellitus with diabetic polyneuropathy (9) Type 2 diabetes mellitus Qualifiers: 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
[2019-02-19] MEDS: Doxycycline 100 MG CAPSULE PO SCH ×2 (13:43→22:07)
--- NOTE | 2019-02-19 13:51 | Electrocardiograph Report ---
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
[2019-02-19] MEDS: Fluticasone Propionate Nasal 50 MCG/SPRAY BOTTLE NS SCH (22:23)
[2019-02-20] MEDS: *HR* OxyCODONE/APAP 10/325 TABLET PO PRN ×2 (02:14→22:58)
[2019-02-20] MEDS: *HR* Heparin 5,000 UNIT/ML VIAL SQ SCH ×3 (06:19→23:01)
[2019-02-20 06:20] LABS: Hemoglobin 8.1 g/dL (12.9-16.9); Mean Corpuscular HGB Conc 31.2 g/dL (31.6-35.5); Mean Corpuscular Hemoglobin 28.4 pg (28.0-33.3); Mean Corpuscular Volume 91.2 fL (83.0-100.0); Mean Platelet Volume 9.2 fL (9.4-12.4); Platelet Count 240 K/mcL (140-400); Red Blood Count 2.85 M/mcL (4.19-5.50); Red Cell Distribution Width 14.6 % (11.5-14.5); White Blood Count 10.4 K/mcL (4.3-11.1)
[2019-02-20 06:40] LABS: Calcium 9.2 mg/dL (8.6-10.3); Potassium 3.7 mEq/L (3.5-5.1)
[2019-02-20] MEDS: Aspirin Enteric Coated 81 MG Tablet PO SCH (09:03)
[2019-02-20] MEDS: Sennosides 8.6 MG TABLET PO SCH ×2 (09:03→23:00)
[2019-02-20] MEDS: Doxycycline 100 MG CAPSULE PO SCH ×2 (09:03→22:57)
[2019-02-20] MEDS: Insulin DETEMIR 100 UNIT/ML X5UNITS SQ SCH ×2 (09:03→23:00)
[2019-02-20] MEDS: Cyanocobalamin (B-12) 1,000 MCG TABLET PO SCH (09:03)
[2019-02-20] MEDS: *HR* Insulin Regular U-500 500 UNIT/ML SQ SCH ×3 (09:04→16:49)
[2019-02-20] MEDS: Nystatin POWDER 30 GM BOTTLE TP SCH (09:13)
[2019-02-20] MEDS: Bumetanide 1 MG/4 ML VIAL IVP SCH (09:13)
--- NOTE | 2019-02-20 09:34 | Nephrology Progress Note ---
Date of Encounter: 02/20/19 Time of Encounter: 08:45 - Assessment and Plan (1) Cellulitis Current Visit: No Status: Acute Patient has been placed on oral antibiotics Augmentin and doxycycline Appreciate ID recommendations Qualifiers: Site of cellulitis: trunk Site of cellulitis of trunk: abdominal wall Qualified Code(s): L03.311 - Cellulitis of abdominal wall (2) Anemia Current Visit: No Status: Acute Likely secondary to chronic disease Hemoglobin goal of 10-11 Qualifiers: Anemia type: unspecified type Qualified Code(s): D64.9 - Anemia, u nspecified (3) Acute renal failure superimposed on stage 3 chronic kidney disease Current Visit: Yes Status: Acute Likely secondary to fluid overload as well as he said P [place]on metolazone [place] on had been dosed at Monday this was held yesterday Bumex was continued at 2 mg twice a day yesterday Worsening kidney function possibly due to diuretic use We will hold Bumex for today and decrease dose to 1 mg twice a day tomorrow Fluid and sodium restriction Use of lowest dose diuretic for fluid status is possible Retroperitoneal ultrasound ordered for further workup worsening LUIS ANTONIO Continue renally protective strategies and renally dose medications Qualifiers: Acute renal failure type: unspecified Qualified Code(s): N17.9 - Acute kidney failure, unspecified; N18.3 - Chronic kidney disease, stage 3 (moderate) (4) Hyponatremia Current Visit: Yes Status: Resolved Patient continues to hold steady at sodium of 137 Continue to monitor electrolytes and replace as necessary Subjective Principal diagnosis: LUIS ANTONIO on CKD stage III Interval history: Mr. Arreola is a 58-year-old man with past medical history of morbid obesity as well as CKG stage III. Patient is doing well today, was transitioned to oral antibiotics for cellulitis under the left breast. He states that he feels that the swelling is slightly better due to his ability to breathe well today. His creatinine though has gone up to 2.64 from 2.09 yesterday, GFR is decreased to 2533, BUN has increased to 101 from 94. Due to this we plan to hold the Bumex tonight and decrease the dose tomorrow as well as order a retroperitoneal ultrasound in order to rule out other causes of LUIS ANTONIO. Patient has concern for when he will be going home, I discussed with the patient that we are wanting to see his kidney function trend towards normal before that can happen in each day we will have a better idea when he will be able to go home. Objective - Vital Signs Vital signs: Vital Signs Temp Pulse Resp BP Pulse Ox 02/20/19 07:49 97.8 F 59 15 133/61 100 02/20/19 04:12 98.4 F 67 20 139/59 100 02/20/19 00:42 100 02/19/19 23:08 98.7 F 62 20 139/59 100 02/19/19 21:11 98.8 F 60 22 161/60 98 02/19/19 16:00 98.0 F 73 12 147/67 100 Intake and Output 02/19/19 02/20/19 02/20/19 23:59 07:59 15:59 Intake Total 300 / 620 60 / 60 Output Total 950 / 2750 450 / 450 Balance -650 / -2130 -390 / -390 Intake: Oral 300 / 600 60 / 60 Output: Urine 950 / 2750 450 / 450 Other: Meal Dinner Percent of Meal Consumed 100% Weight 236.4 kg Blood Glucose* 446 333 Patient Weight 02/20/19 23:59 Weight 236.4 kg - General Appearance General appearance: Present: well-developed, well-nourished, obese EENT: Present: mucous membranes dry Neck: Present: no JVD, supple Cardiology: Present: no murmurs, no rub, no gallops, edema (3+ pitting edema to the knee bilaterally, left worse than right, lymphedema noted in pannus approximately the same as yesterday.), regular rate, regular rhythm Gastrointestinal: Present: normoactive bowel sounds, no tenderness, no guarding Integumentary: Present: no rash, warm and dry (Open wound noted under her breast) - Lab 02/20/19 06:04 02/20/19 06:04 Most recent lab results 02/20/19 06:04 Calcium 9.2 - Imaging Kidney/bladder ultrasound: pending Consult Discharge Plan - Plan [facility]errals: [facility] [Primary Care Provider[facility] -
[2019-02-20] MEDS: Insulin LISPRO 300 UNITS/3 ML VIAL SQ SCH ×3 (11:24→22:58)
--- NOTE | 2019-02-20 21:47 | Internal Med Progress Note ---
Hospitalist Progress Note - Encounter Date of Encounter: 02/20/19 Time of Encounter: 12:30 - Subjective Interval History: Mr. Arreola stated he has no complaints like to be left alone. He reluctantly agreed to do encountered this afternoon. He did admit to chronic history of abdominal wound. - Exam Vitals: Temp Pulse Resp BP Pulse Ox 98.3 F 57 17 137/60 100 02/20/19 21:20 02/20/19 21:20 02/20/19 21:20 02/20/19 21:20 02/20/19 21:20 Exam: General: Morbidly obese male Patient is alert, oriented, no acute distress, morbidly obese, speaks in full sentences Head: atraumatic, normocephalic, Eye: normal appearance, PERRL, no scleral icterus, no conjunctival injection ENT: mucous membranes moist, normal external ear exam Neck: normal inspection, trachea midline, full ROM, no carotid bruits Chest: normal inspection, symmetric chest rise Respiratory: Decreased breath sounds secondary to body habitus, no wheezing or crackles appreciated Cardiovascular: Distant heart sounds secondary to body habitus, Regular rate and rhythm. s1 and s2 No clicks, rubs, gallops, or murmors. Abdomen: Morbidly obese abdomen, he has a dressing covering the 24 cm x 24 cm area of erythema, warmth is clean dry and intact Bowel sounds present normoactive x-4 quadrants. Abdomen is soft,no Epigastric tenderness. No guarding or rebound. No organomegaly noted, musculoskeletal: Spontaneously moving all extremities. Bilateral lower extremity edema left greater than right, has erythema about 5 x 5 cm with petechiae on bilateral shins bilateral medial thighs have erythema and blisters Skin: warm, dry, intact. Neuro: Alert and oriented x4. Sensation light touch intact. Cranial nerves 2- 12 is intact. Not aphasic. Psych: He is irritable and uncooperative - Assessment and Plan (1) Acute renal failure superimposed on stage 3 chronic kidney disease Current Visit: Yes Status: Acute Assessment and Plan: serum cr trended up today, plan per tray checker most likely secondary hypoperfusion from fluid overload has CKD 3 at baseline creatinine at baseline is about 1.75 currently 1.99 appears in volume overload on bumex 2 mg BID at home along with metolazone- bumex changed to IV adn will hold metolazone continue with IV diuretics from AM - watch renal functions nephrology to assist with diuresing strict intake and out put (2) Cellulitis Current Visit: No Status: Acute Assessment and Plan: Plan per ID physician has had multiple admissions for similar complaint Patient unable to get a CT due to his morbid obesity and ultrasound was ordered IV vancomycin and cefepime ESR 68,CRP 43, CPK 25 procalcitonin 0.47 blood cx in process MRSA swab pending topical antifungals ID consulted will follow recommendations wound care consulted (3) Type 2 diabetes mellitus Current Visit: No Status: Acute Assessment and Plan: Hemoglobin A1c is 10.8 uncontrolled continue basal insulin as well as sliding scale insulin bedside Accu-Cheks (4) Anemia Current Visit: No Status: Acute Assessment and Plan: Hemoglobin slightly trended down from 8.5-8.1 we will continue to monitor (5) DVT prophylaxis Current Visit: No Status: Acute (6) Morbid obesity with BMI of 70 and over, adult Current Visit: No Status: Chronic Assessment and Plan: nutrition consult (7) RICK (obstructive sleep apnea) Current Visit: No Status: Acute Assessment and Plan: continue with bipap- home setting (8) Edema of left lower extremity Current Visit: No Status: Acute Assessment and Plan: LLE edema > right lower extremity edema DVT study - appears to be negative for DVT and SVT. continue with diuresis as above (9) Lymphedema in adult patient Current Visit: No Status: Acute Assessment and Plan: of the left lower abdomen abdominal US No evidence of a cystic or solid mass in the area of concern left lower quadrant the abdomen. Given the clinical history contrast-enhanced CT imaging of the abdomen and pelvis is recommended for complete assessment. (10) Diabetic neuropathy Current Visit: No Status: Acute Assessment and Plan: Would emphasize glycemic control (11) Hyponatremia Current Visit: Yes Status: Resolved - Time Spent with Patient Total time spent is greater than 50% in coordination of care (as documented) at patient's floor/unit and/or counseling patient: Internal Medicine: Result - Labs CBC & Chem 7: 02/20/19 06:04 02/20/19 06:04 Labs: Short CBC 02/20/19 Range/Units 06:04 WBC 10.4 (4.3-11.1) K/mcL Hgb 8.1 L (12.9-16.9) g/dL Hct 26.0 L (37.5-50.1) % Plt Count 240 (140-400) K/mcL BMP 02/20/19 06:04 Sodium 137 Potassium 3.7 Chloride 90 L Carbon Dioxide 36 H BUN 101 H Creatinine 2.64 H Glucose 325 H Calcium 9.2 - ABG Interpretation ABG results: PT/INR, D-dimer PT 11.0 Seconds (9.4-12.1) 02/18/19 13:28 254 ng/mLFEU (0-500) 02/18/19 13:28 - Impressions Impressions Retroperitoneum Ultrasound 02/20/19 19:00 IMPRESSION: Very limited study showing no right hydronephrosis or right renal pelvic shadowing stones. The left kidney and urinary bladder are not evaluated due to body habitus. D/ / Maria G Gonzalez Cha, MD / Maria G Gonzalez Cha, MD Interpreting Provider: Maria G Gonzalez Cha, MD Consult Discharge Plan - Plan [facility]errals: [facility] [Primary Care Provider] - (1) Acute renal failure superimposed on stage 3 chronic kidney disease Qualifiers: Acute renal failure type: unspecified Qualified Code(s): N17.9 - Acute kidney failure, unspecified; N18.3 - Chronic kidney disease, stage 3 (moderate) (2) Cellulitis Qualifiers: Site of cellulitis: trunk Site of cellulitis of trunk: abdominal wall Q ualified Code(s): L03.311 - Cellulitis of abdominal wall (3) Type 2 diabetes mellitus Qualifiers: Diabetes mellitus group home insulin use: with group home use Diabetes mellitus complication status: with neurologic complications Diabetes mellitus complication detail: with polyneuropathy Qualified Code(s): E11.42 - Type 2 diabetes mellitus with diabetic polyneuropathy; Z79.4 - 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
[2019-02-20] MEDS: Fluticasone Propionate Nasal 50 MCG/SPRAY BOTTLE NS SCH (22:58)
[2019-02-21] MEDS: *HR* Heparin 5,000 UNIT/ML VIAL SQ SCH ×3 (06:38→23:37)
[2019-02-21 08:29] LABS: Basophils % 0.3 %; Eosinophils # 0.6 K/mcL (0.0-0.6); Eosinophils % 5.6 %; Hematocrit 25.5 % (37.5-50.1); Hemoglobin 7.8 g/dL (12.9-16.9); Immature Granulocytes % 0.5 % (0-4); Lymphocytes # 1.9 K/mcL (0.6-4.6); Lymphocytes % 18.9 %; Mean Corpuscular HGB Conc 30.6 g/dL (31.6-35.5); Mean Corpuscular Volume 91.4 fL (83.0-100.0); Mean Platelet Volume 9.4 fL (9.4-12.4); Monocytes # 0.8 K/mcL (0.0-1.3); Monocytes % 7.9 %; Neutrophils # 6.6 K/mcL (1.6-8.9); Platelet Count 241 K/mcL (140-400); Red Blood Count 2.79 M/mcL (4.19-5.50); Red Cell Distribution Width 14.3 % (11.5-14.5); Segmented Neutrophils % 66.8 %; White Blood Count 9.9 K/mcL (4.3-11.1)
[2019-02-21] MEDS: Sennosides 8.6 MG TABLET PO SCH ×2 (08:34→20:09)
[2019-02-21] MEDS: Doxycycline 100 MG CAPSULE PO SCH ×2 (08:34→20:06)
[2019-02-21] MEDS: Cyanocobalamin (B-12) 1,000 MCG TABLET PO SCH (08:35)
[2019-02-21] MEDS: Insulin DETEMIR 100 UNIT/ML X5UNITS SQ SCH ×2 (08:36→20:12)
[2019-02-21] MEDS: Nystatin POWDER 30 GM BOTTLE TP SCH (08:36)
[2019-02-21] MEDS: Bumetanide 1 MG/4 ML VIAL IVP SCH ×2 (08:36→16:26)
[2019-02-21] MEDS: *HR* Insulin Regular U-500 500 UNIT/ML SQ SCH ×3 (08:36→16:34)
[2019-02-21] MEDS: Insulin LISPRO 300 UNITS/3 ML VIAL SQ SCH ×4 (08:37→20:12)
[2019-02-21 09:36] LABS: Calcium 8.9 mg/dL (8.6-10.3); Potassium 3.6 mEq/L (3.5-5.1)
[2019-02-21] MEDS: *HR* OxyCODONE/APAP 10/325 TABLET PO PRN ×2 (09:48→16:27)
--- NOTE | 2019-02-21 10:25 | Internal Med Progress Note ---
Hospitalist Progress Note - Encounter Date of Encounter: 02/21/19 Time of Encounter: 10:22 - Subjective Interval History: Mr Arreola reports feeling better he denies any fevers chills chest pain shortness of breath continues to tolerate his BiPAP therapy. His only complaints this morning worse his peripheral neuropathy and he stated that he is not getting his Percocet however upon review of his medication administration records he does appear to be a Percocet generic. - Exam Vitals: Temp Pulse Resp BP Pulse Ox 97.7 F 64 12 146/59 96 02/21/19 07:15 02/21/19 07:15 02/21/19 07:15 02/21/19 07:15 02/21/19 07:15 Exam: General: Morbidly obese male Patient is alert, oriented, no acute distress Head: atraumatic, normocephalic, Eye: normal appearance, PERRL, no scleral icterus, no conjunctival injection ENT: mucous membranes moist, normal external ear exam Neck: normal inspection, trachea midline, full ROM Chest: normal inspection, symmetric chest rise Respiratory: Decreased breath sounds secondary to body habitus, no wheezing or crackles appreciated Cardiovascular: Distant heart sounds secondary to body habitus, Regular rate and rhythm. s1 and s2 No clicks, rubs, gallops, or murmors. Telemetry: NSR noted at 64 Abdomen: Morbidly obese abdomen, he has a dressing covering the 24 cm x 24 cm area of erythema, warmth is clean dry and intact Bowel sounds present normoactive x-4 quadrants. Abdomen is soft, no Epigastric tenderness. No guarding or rebound. musculoskeletal: Spontaneously moving all extremities. Bilateral lower extremity edema left greater than right, has erythema about 5 x 5 cm with petechiae on bilateral shins bilateral medial thighs have erythema and blisters Skin: warm, dry, intact. Neuro: Alert and oriented x4. Sensation light touch intact. Cranial nerves 2- 12 is intact. Not aphasic. Psych: Appropriate mood and affect - Assessment and Plan (1) Acute renal failure superimposed on stage 3 chronic kidney disease Current Visit: Yes Status: Acute Assessment and Plan: serum cr trended slightly down today from 2.64 - 2.42. He stated his baseline is 1.9. Nephrology is working up patient most likely secondary hypoperfusion from fluid overload has CKD 3 at baseline creatinine at baseline is about 1.75 currently 1.99 appears in volume overload on bumex 2 mg BID at home along with metolazone- bumex changed to IV adn will hold metolazone continue with IV diuretics from AM - watch renal functions nephrology to assist with diuresing strict intake and out put (2) Cellulitis Current Visit: No Status: Acute Assessment and Plan: Improving, on doxycycline per ID has had multiple admissions for similar complaint Patient unable to get a CT due to his morbid obesity and ultrasound was ordered IV vancomycin and cefepime ESR 68,CRP 43, CPK 25 procalcitonin 0.47 blood cx in process MRSA swab pending topical antifungals ID consulted will follow recommendations wound care consulted (3) Type 2 diabetes mellitus Current Visit: No Status: Acute Assessment and Plan: POC improved from 446 to 358, on Levemir 100u BID and U500 suspect insulin resistant may require out patient work up. May benefit from GLP analogs will defer to PCP. Hemoglobin A1c is 10.8 uncontrolled continue basal insulin as well as sliding scale insulin bedside Accu-Cheks (4) Anemia Current Visit: No Status: Acute Assessment and Plan: Hemoglobin continues to trend down 8.8 - 7.8 although in the setting of chronic wounds. He is iron deficient his ferritin is 20 on IV iron sucrose 1 dose (5) DVT prophylaxis Current Visit: No Status: Acute Assessment and Plan: heparin sc (6) Morbid obesity with BMI of 70 and over, adult Current Visit: No Status: Chronic Assessment and Plan: Continue to encourage lifestyle modification diet and exercise nutrition consult (7) RICK (obstructive sleep apnea) Current Visit: No Status: Acute Assessment and Plan: continue with bipap- home setting (8) Edema of left lower extremity Current Visit: No Status: Acute Assessment and Plan: LLE edema > right lower extremity edema DVT study - appears to be negative for DVT and SVT. continue with diuresis as above (9) Lymphedema in adult patient Current Visit: No Status: Acute Assessment and Plan: of the left lower abdomen abdominal US No evidence of a cystic or solid mass in the area of concern left lower quadrant the abdomen. Given the clinical history contrast-enhanced CT imaging of the abdomen and pelvis is recommended for complete assessment. (10) Diabetic neuropathy Current Visit: No Status: Acute Assessment and Plan: This morning he is requesting more narcotic analgesic for his diabetic neuropathy citing worsening neuropathy we will add Cymbalta. Given his lower extremity edema is told also that a candidate for pregabalin or gabapentin Would emphasize glycemic control (11) Hyponatremia Current Visit: Yes Status: Resolved Assessment and Plan: Resolved - Time Spent with Patient Total time spent is greater than 50% in coordination of care (as documented) at patient's floor/unit and/or counseling patient: 25 - 35 minutes Internal Medicine: Result - Labs CBC & Chem 7: 02/21/19 08:09 02/21/19 08:09 Labs: Short CBC 02/21/19 Range/Units 08:09 WBC 9.9 (4.3-11.1) K/mcL Hgb 7.8 L (12.9-16.9) g/dL Hct 25.5 L (37.5-50.1) % Plt Count 241 (140-400) K/mcL Neutrophils # 6.6 (1.6-8.9) K/mcL BMP 02/21/19 08:09 Sodium 138 Potassium 3.6 Chloride 92 L Carbon Dioxide 32 H BUN 101 H Creatinine 2.42 H Glucose 232 H Calcium 8.9 - ABG Interpretation ABG results: PT/INR, D-dimer PT 11.0 Seconds (9.4-12.1) 02/18/19 13:28 254 ng/mLFEU (0-500) 02/18/19 13:28 - Impressions Impressions Retroperitoneum Ultrasound 02/20/19 19:00 IMPRESSION: Very limited study showing no right hydronephrosis or right renal pelvic shadowing stones. The left kidney and urinary bladder are not evaluated due to body habitus. D/ / Maria G Gonzalez Cha, MD / Maria G Gonzalez Cha, MD Interpreting Provider: Maria G Gonzalez Cha, MD Consult Discharge Plan - Plan [facility]errals: [facility] [Primary Care Provider] - (1) Acute renal failure superimposed on stage 3 chronic kidney disease Qualifiers: Acute renal failure type: unspecified Qualified Code(s): N17.9 - Acute kidney failure, unspecified; N18.3 - Chronic kidney disease, stage 3 (moderate) (2) Cellulitis Qualifiers: Site of cellulitis: trunk Site of cellulitis of trunk: abdominal wall Qualified Code(s): L03.311 - Cellulitis of abdominal wall (3) Type 2 diabetes mellitus Qualifiers: Diabetes mellitus jail insulin use: with remote computer terminal operator use Diabetes mellitus complication status: with neurologic complications Diabetes mellitus complication detail: with polyneuropathy Qualified Code(s): E11.42 - Type 2 diabetes mellitus with diabetic polyneuropathy; Z79.4 - halfway (current) use of insulin (4) Anemia Qualifiers: Anemia type: iron deficiency Iron deficiency anemia type: chronic blood loss Qualified Code(s): D50.0 - Iron deficiency anemia secondary to blood loss (chronic) (10) Diabetic neuropathy Qualifiers: Diabetes mellitus type: type 2 Diabetes mellitus complication detail: diabetic polyneuropathy Qualified Code(s): E11.42 - Type 2 diabetes mellitus with diabetic polyneuropathy
--- NOTE | 2019-02-21 11:06 | Nephrology Progress Note ---
Date of Encounter: 02/21/19 Time of Encounter: 09:20 - Assessment and Plan (1) LUIS ANTONIO (acute kidney injury) Current Visit: Yes Status: Acute He has non-oliguric acute kidney injury with elevated serum creatinine: Multifactorial in etiology. Yesterday his serum creatinine bumped even higher, and I recommended holding the Bumex. He should also continue to avoid the metolazone. His hyponatremia and hypokalemia are improving after holding/avoiding the metolazone. This morning his lab results were delayed, and I checked his chart several times. I see now that the serum creatinine is improving, so it is reasonable to give the lower dose of Bumex 1 mg IV twice a day. However, the dosing of this medication will be dependent upon tomorrow's creatinine, the urine output, and his daily weights. I recommend continuing to follow strict I's and O's, daily weights, avoidance of nephrotoxic agents as able and renal dosing. My colleague Dr. Soliz will be on-call tomorrow. Thank you (2) CKD (chronic kidney disease), stage III Current Visit: Yes Status: Chronic He has baseline CKD stage III with frequent history of acute kidney injury events in the past. His renal risk factors include severe morbid obesity, hypertension, previous AKIs, and diuretics. (3) Venous stasis dermatitis of both lower extremities Current Visit: Yes Status: Chronic He has long-standing lymphedema, and I recommend using the lowest but effective dosage of diuretics. He should also have stockings if tolerated. I recommended to the floor nurse that they help elevate his legs. He should follow a fluid restriction and low sodium restriction as well (4) Hyponatremia Current Visit: Yes Status: Resolved Resolved (5) Lymphedema in adult patient Current Visit: No Status: Acute (6) Obesity Current Visit: No Status: Chronic I recommend lifestyle modifications Qualifiers: Obesity type: unspecified obesity type Obesity classification: unspecified obesity classification Serious obesity comorbidity presence: unspecified whether serious comorbidity present Qualified Code(s): E66.9 - Obesity, unspecified Subjective Principal diagnosis: LUIS ANTONIO on CKD stage III Interval history: He reported feeling relatively well, and voiced having less swelling in his hands compared to a few days ago. He did not affirm nausea, vomiting or diarrhea. He says he uses BiPAP routinely while napping/sleeping. 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 Objective - Vital Signs Vital signs: Vital Signs Temp Pulse Resp BP Pulse Ox 02/21/19 07:15 97.7 F 64 12 146/59 96 02/21/19 04:50 98.2 F 60 17 117/50 95 02/21/19 00:20 98 02/20/19 21:20 98.3 F 57 17 137/60 100 02/20/19 17:24 61 22 133/61 100 Intake and Output 02/20/19 02/21/19 02/21/19 23:59 07:59 15:59 Intake Total 0 / 300 0 / 240 240 / 240 Output Total 400 / 1400 200 / 200 Balance -400 / -1100 -200 / 40 240 / 40 Intake: Oral 0 / 300 0 / 240 240 / 240 Output: Urine 400 / 1400 200 / 200 Other: Meal Breakfast Percent of Meal Consumed 100% Stool Size Large Stool Consistency formed Stool Color Brown # Voids 1 # Bowel Movements 1 Blood Glucose* 295 236 - General Appearance General appearance: Present: well-developed, well-nourished, appears started age, obese, chronically ill (and bedbound) EENT: Present: ATNC, PERRL, mucous membranes moist Neck: Present: no JVD, no thyromegaly, supple Respiratory: Present: no kyphosis, clear (but limited auscultation due to his body habitus) Cardiology: Present: no murmurs, edema (consistent with lymphedema in the bilateral lower extremities), regular rate, regular rhythm, normal S1, normal S2 Gastrointestinal: Present: normoactive bowel sounds, no guarding, obese (with very large pannus) Integumentary: Present: hyperpigmentation, chronic venous stasis Neurologic: Present: no focal deficit, no asterixis, alert and oriented x3 Musculoskeletal: Present: no cyanosis, no clubbing Psychiatric: Present: mood/affect appropriate, cooperative - Lab 02/21/19 08:09 02/21/19 08:09 Most recent lab results 02/21/19 08:09 Calcium 8.9 Consult Discharge Plan - Plan [facility]errals: [facility] [Primary Care Provider] -
[2019-02-21] MEDS: Fluticasone Propionate Nasal 50 MCG/SPRAY BOTTLE NS SCH (20:11)
[2019-02-22] MEDS: *HR* OxyCODONE/APAP 10/325 TABLET PO PRN (05:50)
[2019-02-22] MEDS: *HR* Heparin 5,000 UNIT/ML VIAL SQ SCH ×2 (05:51→11:42)
[2019-02-22 06:26] LABS: Basophils % 0.2 %; Eosinophils # 0.5 K/mcL (0.0-0.6); Eosinophils % 5.7 %; Hemoglobin 7.7 g/dL (12.9-16.9); Immature Granulocytes % 0.6 % (0-4); Lymphocytes % 21.5 %; Mean Corpuscular HGB Conc 30.8 g/dL (31.6-35.5); Mean Corpuscular Hemoglobin 28.7 pg (28.0-33.3); Mean Corpuscular Volume 93.3 fL (83.0-100.0); Mean Platelet Volume 9.7 fL (9.4-12.4); Monocytes # 0.8 K/mcL (0.0-1.3); Monocytes % 8.4 %; Neutrophils # 5.9 K/mcL (1.6-8.9); Platelet Count 234 K/mcL (140-400); Red Blood Count 2.68 M/mcL (4.19-5.50); Red Cell Distribution Width 14.4 % (11.5-14.5); Segmented Neutrophils % 63.6 %; White Blood Count 9.3 K/mcL (4.3-11.1)
[2019-02-22 08:02] VITALS: BP 132/59
[2019-02-22 08:46] LABS: Calcium 8.5 mg/dL (8.6-10.3); Magnesium 1.4 mg/dL (1.6-2.6)
[2019-02-22] MEDS: *HR* Insulin Regular U-500 500 UNIT/ML SQ SCH ×2 (08:50→11:42)
[2019-02-22] MEDS: Doxycycline 100 MG CAPSULE PO SCH (08:51)
[2019-02-22] MEDS: Sennosides 8.6 MG TABLET PO SCH (08:52)
[2019-02-22] MEDS: Cyanocobalamin (B-12) 1,000 MCG TABLET PO SCH (08:52)
[2019-02-22] MEDS: Aspirin Enteric Coated 81 MG Tablet PO SCH (08:52)
[2019-02-22] MEDS: Bumetanide 1 MG/4 ML VIAL IVP SCH (08:52)
[2019-02-22] MEDS: Nystatin POWDER 30 GM BOTTLE TP SCH (08:53)
[2019-02-22] MEDS: Insulin DETEMIR 100 UNIT/ML X5UNITS SQ SCH ×2 (08:54→10:32)
[2019-02-22] MEDS: Insulin LISPRO 300 UNITS/3 ML VIAL SQ SCH ×2 (08:55→11:41)
--- NOTE | 2019-02-22 10:20 | Discharge Summary ---
- NOTES TO OUTPATIENT PROVIDER Notes to Outpatient Provider: Patient will need a repeat BMP and CBC within the next 7 days. He is to follow up with Dr. Jordy Liu the doctor osteopathic of the earliest appointment time to review his workup for Acute kidney injury. Of note patient was receiving care during his hospital stay. Overall suspect insulin resistance. He may benefit from refer for insulin pump, and continuous blood glucose monitoring since the patient does not want to do fingersticks or received multiple insulin subcutaneous injection. He may also be an ideal candidate for bariatric surgery given his poorly controlled diabetes, RICK. Palliative care is always an option. Orders not resulted at time of discharge: Pending orders 02/18/19 16:17 MRSA Surveillance Screen [MOLMIC] Stat 02/23/19 04:00 Basic Metabolic Panel AM 0400 Complete Blood Count [HEME] AM 0400 Magnesium AM 0400 02/24/19 04:00 Basic Metabolic Panel AM 0400 Complete Blood Count [HEME] AM 0400 Magnesium AM 0400 Date of Encounter: 02/22/19 Time of Encounter: 10:15 - Discharge Diagnosis (1) Acute renal failure superimposed on stage 3 chronic kidney disease Priority: Primary Status: Acute Assessment and Plan: serum cr trends 2.64, 2.42 and 2.5. We will order a BMP 1 week from today which result coated to his primary care physician. He stated his baseline is 1.9. However this may be his new baseline. Patient's overall has been refusing care and today refused to be examined by his nurse Tammy. This prompted a goals of care /discharge planning discussion with the patient. He cited his frustrations with not getting his narcotic medications, not getting his meals on time etc and stated that his blood glucose which is averaging over 300-400 is normal for him and said he does not want any insulin therapy. The covering doctor osteopathic was informed via text messaging the decision to discharge patient and for him to follow up as an outpatient with Dr. Jordy Medina as an outpatient. The patient appears to have good understanding and compression our discussion-patient, myself and nurse Tammy. Per nephrology progress note dated 02/21/2019 the plan is to discharged on Bumex 1 mg twice a day. most likely secondary hypoperfusion from fluid overload has CKD 3 at baseline creatinine at baseline is about 1.75 currently 1.99 appears in volume overload on bumex 2 mg BID at home along with metolazone- bumex changed to IV adn will hold metolazone continue with IV diuretics from AM - watch renal functions nephrology to assist with diuresing strict intake and out put Qualifiers: Acute renal failure type: unspecified Qualified Code(s): N17.9 - Acute kidney failure, unspecified; N18.3 - Chronic kidney disease, stage 3 (moderate) (2) Cellulitis Priority: Secondary Status: Acute Assessment and Plan: Improving, on doxycycline per ID has had multiple admissions for similar complaint Patient unable to get a CT due to his morbid obesity and ultrasound was ordered IV vancomycin and cefepime ESR 68,CRP 43, CPK 25 procalcitonin 0.47 blood cx in process MRSA swab pending topical antifungals ID consulted will follow recommendations wound care consulted Qualifiers: Site of cellulitis: trunk Site of cellulitis of trunk: abdominal wall Qualified Code(s): L03.311 - Cellulitis of abdominal wall (3) Type 2 diabetes mellitus Priority: Secondary Status: Acute Assessment and Plan: Noncompliant Patient, he continues to refuses insulin therapy which prompted goals of care discussion as aforementioned. Given his frustration Accu-Cheks and multiple insulin therapy subcutaneously he might be an ideal candidate for continuous blood glucose monitoring and insulin pump. POC improved from 446 to 358, on Levemir 100u BID and U500 suspect insulin resistant may require out patient work up. May benefit from GLP analogs will defer to PCP. 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 Hemoglobin stable at 7.7, will need a CBC 1 week. He will might require outpatient follow-up with screening colonoscopy for iron deficient anemia although in the setting of chronic wounds. He is iron deficient his ferritin is 20 on IV iron sucrose 1 dose Qualifiers: Anemia type: iron deficiency Iron deficiency anemia type: chronic blood loss Qualified Code(s): D50.0 - Iron deficiency anemia secondary to blood loss (chronic) (5) DVT prophylaxis Priority: Secondary Status: Acute Assessment and Plan: heparin sc (6) Morbid obesity with BMI of 70 and over, adult Priority: Secondary Status: Chronic Assessment and Plan: He might be an ideal candidate for bariatric surgery would defer to primary care physician Continue to encourage lifestyle modification diet and exercise nutrition consult (7) RICK (obstructive sleep apnea) Priority: Secondary Status: Acute Assessment and Plan: continue with bipap- home setting (8) Edema of left lower extremity Priority: Secondary Status: Acute Assessment and Plan: LLE edema > right lower extremity edema DVT study - appears to be negative for DVT and SVT. continue with diuresis as above (9) Lymphedema in adult patient Priority: Secondary Status: Acute Assessment and Plan: of the left lower abdomen abdominal US No evidence of a cystic or solid mass in the area of concern left lower quadrant the abdomen. Given the clinical history contrast-enhanced CT imaging of the abdomen and pelvis is recommended for complete assessment. (10) Diabetic neuropathy Priority: Secondary Status: Acute Assessment and Plan: This morning he is requesting more narcotic analgesic for his diabetic neuropathy citing worsening neuropathy he is unable to take Cymbalta due to allergies. Given his lower extremity edema is told also that a candidate for pregabalin or gabapentin Would emphasize glycemic control Qualifiers: Diabetes mellitus type: type 2 Diabetes mellitus complication detail: diabetic polyneuropathy Qualified Code(s): E11.42 - Type 2 diabetes mellitus with diabetic polyneuropathy (11) Hyponatremia Priority: Secondary Status: Resolved Assessment and Plan: Resolved Hospital course: Mr. Arreola is a 58 year old male who was hospitalized for cellulitis, and shortness of breath which was initiated after but it is acute on chronic heart f ailure. He was managed with diuretic therapy intravenously and patient was noted to have worsening of his chronic kidney disease. He was seen by a doctor osteopathic who will need adjustment to his diuretic therapy and due to patient's poor response to renal recovery performed additional workup to delineate his acute kidney injury. During this hospitalization patient was placed on insulin per protocol however throughout this stay he continued to be non adherent and noncompliance to the treatment plan with regard to his diabetes and insulin therapy. For his cellulitis he was initially treated with IV antibiotics per infectious diseases team was transitioned to oral antibiotics. Patient voiced his frustration with regard to not getting the full dose of oral narcotic analgesic medication which was explained to him that this was due to concerns for respiratory depression giving of his underlying comorbidities. Patient continues to maintain his dissatisfaction with his overall care citing t hat his meals were not been delivered on time. Patient hospital admission was prolonged due to his acute kidney injury work up at the request of the doctor osteopathic. It was noted that the patient was becoming frustrated being an inpatient status as such it was agreed upon that patient was already stable for discharge hence he could be discharged today and follow-up as an outpatient with the doctor osteopathic to discuss the result of his LUIS ANTONIO work up. A Text communication was sent to the covering doctor osteopathic to notify her of the discussed treatment plans and discharge for him to follow up as soon as possible with the doctor osteopathic and she agreed to be discharged planning. Per case management consult note patient was initially enrolled in [facility] prior to admission he can be re-enrolled upon return to home. Given his overall refusal of care and refusing to address is diabetes, palliative care is always an alternative will defer to primary care physician Discharge discussed with: patient, nurse, provider relations consultant - Time Spent with Patient Total time spent providing and/or coordinating discharge services:40 Time spent: Greater than 30 minutes - Discharge Medications Prescriptions: New Amoxicillin/Clavulanate [Augmentin] 875 mg PO BIDWM 10 Days tablet Doxycycline 100 mg PO BID 10 Days capsule Nystatin POWDER [Nystop] 1 appl TP DAILY #1 bottle Continued Calcitriol [Rocaltrol] 0.25 mcg PO 1200 #30 capsule Cyanocobalamin (B-12) [Vitamin B12] 1,000 mcg PO DAILY #30 tablet Fluticasone Propionate [24 Hour Allergy] 2 spray NS HS #1 spray.susp Atenolol [Tenormin] 25 mg PO QAM Atorvastatin Calcium 80 mg PO HS Lidocaine 2 patch TP Q24H PRN PRN Reason: Pain Levothyroxine [Synthroid] 75 mcg PO QAM LORazepam [Ativan] 1 mg PO Q4HR PRN PRN Reason: Anxiety DiphenhydraMINE [Benadryl] 25 mg PO BID Atenolol [Tenormin] 12.5 mg PO QPM MOM Conc [MILK OF MAGNESIA conc] 10 ml PO DAILY PRN PRN Reason: Constipation Polyethylene Glycol 3350 [MiraLAX] 17 gm PO DAILY PRN PRN Reason: Constipation Insulin Regular U-500 [HumuLIN R U-500] 150 unit SQ TID Sennosides [Senna] 8.6 mg PO BID Omeprazole [PriLOSEC] 20 mg PO DAILY Miconazole Nitrate [Anti-Fungal Powder] 1 applic TP MOWEFR Ipratropium/Albuterol Neb [Duoneb] 3 ml IH Q4HR PRN PRN Reason: Shortness Of Breath Docusate [Colace] 400 mg PO HS Loperamide [Imodium] 2 mg PO TID PRN MDD 4 PRN Reason: Diarrhea Glucagon,Human Recombinant [Glucagon Emergency Kit] 1 vial IM AD PRN PRN Reason: LOW BLOOD SUGAR Dicyclomine Hcl [Bentyl] 20 mg PO BID PRN PRN Reason: BOWEL IRRITATION Aspirin [Lo-Dose Aspirin EC] 81 mg PO Q48H traZODone [TraZODone] 50 mg PO HS PRN PRN Reason: Sleep Insulin Glargine,Hum.rec.anlog [Lantus Solostar] 100 unit SQ BID 30 Days #1 insuln.pen OxyCODONE/APAP 10/325 [Percocet 10/325 MG] 1 each PO Q6HR PRN 7 Days #30 tablet PRN Reason: Pain Changed Bumetanide [Bumex] 1 mg PO 0800,1400 #30 tablet Discontinued metOLazone [Zaroxolyn] 2.5 mg PO MOWEFR Home Medications: Calcitriol [Rocaltrol] 0.25 mcg PO 1200 #30 capsule 03/14/18 [Rx] Cyanocobalamin (B-12) [Vitamin B12] 1,000 mcg PO DAILY #30 tablet 03/14/18 [Rx] Fluticasone Propionate [24 Hour Allergy] 2 spray NS HS #1 spray.susp 03/14/18 [Rx] Atenolol [Tenormin] 25 mg PO QAM 03/22/18 [History] Atorvastatin Calcium 80 mg PO HS 03/22/18 [History] Levothyroxine [Synthroid] 75 mcg PO QAM 03/22/18 [History] Lidocaine 2 patch TP Q24H PRN 03/22/18 [History] Aspirin [Lo-Dose Aspirin EC] 81 mg PO Q48H 02/18/19 [History] Atenolol [Tenormin] 12.5 mg PO QPM 02/18/19 [History] Dicyclomine Hcl [Bentyl] 20 mg PO BID PRN 02/18/19 [History] DiphenhydraMINE [Benadryl] 25 mg PO BID 02/18/19 [History] Docusate [Colace] 400 mg PO HS 02/18/19 [History] Glucagon,Human Recombinant [Glucagon Emergency Kit] 1 vial IM AD PRN 02/18/19 [History] Insulin Regular U-500 [HumuLIN R U-500] 150 unit SQ TID 02/18/19 [History] Ipratropium/Albuterol Neb [Duoneb] 3 ml IH Q4HR PRN 02/18/19 [History] LORazepam [Ativan] 1 mg PO Q4HR PRN 02/18/19 [History] Loperamide [Imodium] 2 mg PO TID PRN MDD 4 02/18/19 [History] MOM Conc [MILK OF MAGNESIA conc] 10 ml PO DAILY PRN 02/18/19 [History] Miconazole Nitrate [Anti-Fungal Powder] 1 applic TP MOWEFR 02/18/19 [History] Omeprazole [PriLOSEC] 20 mg PO DAILY 02/18/19 [History] Polyethylene Glycol 3350 [MiraLAX] 17 gm PO DAILY PRN 02/18/19 [History] Sennosides [Senna] 8.6 mg PO BID 02/18/19 [History] traZODone [TraZODone] 50 mg PO HS PRN 02/18/19 [History] Amoxicillin/Clavulanate [Augmentin] 875 mg PO BIDWM 10 Days tablet 02/22/19 [Rx] Bumetanide [Bumex] 1 mg PO 0800,1400 #30 tablet 02/22/19 [Rx] Doxycycline 100 mg PO BID 10 Days capsule 02/22/19 [Rx] Insulin Glargine,Hum.rec.anlog [Lantus Solostar] 100 unit SQ BID 30 Days #1 insuln.pen 02/22/19 [Rx] Nystatin POWDER [Nystop] 1 appl TP DAILY #1 bottle 02/22/19 [Rx] OxyCODONE/APAP 10/325 [Percocet 10/325 MG] 1 each PO Q6HR PRN 7 Days #30 tablet 02/22/19 [Rx] Allergies/Adverse Reactions: Allergy/AdvReac Type Severity Reaction Status Date / Time clindamycin Allergy Hives Verified 02/26/16 07:07 gabapentin [From Neurontin] Allergy See Verified 11/20/15 20:15 Comments hydromorphone [From Dilaudid] Allergy See Verified 11/20/15 20:15 Comments ketorolac [From Toradol] Allergy See Verified 11/20/15 20:15 Comments vancomycin AdvReac Unknown See Verified 02/18/19 22:24 Comments duloxetine [From Cymbalta] AdvReac Seizure Verified 02/21/19 12:13 Date of admission: 02/18/19 18:56 [facility] care physician: [facility] Consults: 02/18/19 16:21 Consult to Infectious Diseases [CONS] Routine Consulting Provider: Infectious Disease [place] Reason for Consult: ?infected flank Call Completed: No 02/18/19 17:02 Consult to Wound Care [CONS] Routine Reason for Consult: LL abdomen cellulitis Call Completed: No 02/18/19 17:06 Consult to Nephrology [CONS] Routine Consulting Provider: Kidney Cornelia/KALEE/SAMY/NELLA Reason for Consult: CKD 3 with fluid overload - assist with diuresis Call Completed: No 02/18/19 17:07 Consult to Case Management [CONS] Routine Comment: Consult to Nutrition [CONS] Routine Comment: Consulting Provider: NUTRITION Reason for Dietary Consult: PO Supplementation Discharging clinician: Lis Oshea Anticipated date of discharge: 02/22/19 - Constitutional Vitals: Temp Pulse Resp BP Pulse Ox 96.3 F L 57 19 132/59 98 02/22/19 07:53 02/22/19 07:53 02/22/19 07:53 02/22/19 07:53 02/22/19 07:53 Exam: GENERAL: Morbidly obese male admitted to be wearing his BiPAP mask not in acute distress but appears to be irritable SKIN: No skin lesions or rashes, non-jaundiced except for his bilateral lower extremity as explained below EYES: EOMI, PERRLA, no sclera icterus HENT: Head atraumatic, no facial asymmetry, frontal and maxillary sinus non- tender, normal hearing, oropharynx and mucosa moist and without any exudates NECK: No cervical lymphadenopathy, trachea midline, thyroid is palpable does not appear enlarged LUNGS: Somewhat diminished due to body habitus but appears clear to auscultation, no wheeze, rhonchi, rales or crackles. Non labored respirations HEART: Distant due to body habitus but appears Normal rate and rhythm, no murmurs or rubs ABDOMEN: soft, non-tender, non-distended, bowel sounds x 4 normoactive. Dressing covering his abdominal wound is clean dry and intact with no serosanguineous stains EXTRMITIES: LE asymmetry noted with left > right signs of chronic venostasis dermatitis diffuse LE edema, pedal pulses 1+ and radial pulses 2 + and equal bilaterally NEURO: Speech and comprehension appears intact. PSYCH: Initially uncooperative, irritable - Patient Status Disposition: Home, Self-Care Condition: Fair Functional capacity at discharge: bed bound (due to his body habitus likely not ambulating much. Mobility level 1) - Discharge Instructions Instructions: Heart Failure (DC) Follow Up With: [facility],PCP [Primary Care Provider] - - Diet and Activity Activity: increase activity as tolerated Diet: diabetic diet
== END 2019-02-22 19:17 | disposition home or self-care (01) | DRG 292 ==
LOC: 2NENU 13:06 → EMEROOARM 13:06 → 2NENU 18:01 → SUATTDRO 18:56
PROVIDERS: ADMIT Internal Medicine Nephrology; ATTEND Pharmacist

== ENCOUNTER 2020-08-19 18:24 | Observation (INO) ==
[2020-08-19] MEDS ORDERED: 0.9 % Sodium Chloride 250 ML ONE (21:24)
[2020-08-19 21:33] LABS: Mean Corpuscular Hemoglobin 28.9 pg (28.0-33.3)
[2020-08-19 21:34] LABS: Hematocrit 17.8 % (37.5-50.1); Mean Corpuscular HGB Conc 30.9 g/dL (31.6-35.5); Mean Corpuscular Volume 93.7 fL (83.0-100.0); Mean Platelet Volume 9.7 fL (9.4-12.4); Platelet Count 345 K/mcL (140-400); Red Cell Distribution Width 14.9 % (11.5-14.5); White Blood Count 13.1 K/mcL (4.3-11.1)
[2020-08-19 21:52] LABS: Calcium 8.5 mg/dL (8.6-10.3); Potassium 4.6 mEq/L (3.5-5.1)
[2020-08-19 21:59] LABS: Hemoglobin 5.5 g/dL (12.9-16.9)
[2020-08-19] MEDS ORDERED: Ondansetron 4 MG/2 ML VIAL IVP PRN (22:09)
[2020-08-19] MEDS ORDERED: Acetaminophen 325 MG TABLET PO PRN (22:09)
[2020-08-19] MEDS ORDERED: traZODone 50 MG TABLET PO PRN (22:31)
[2020-08-19] MEDS ORDERED: polyethylene glycoL 3350 17 GM POWD.PACK PO PRN (22:31)
[2020-08-19] MEDS ORDERED: D5% in Water 1,000 ML IVC PRN (23:03)
[2020-08-19] MEDS ORDERED: Dextrose Gel 15 GM/37.5 ML TUBE PO PRN ×2 (23:03)
[2020-08-19] MEDS ORDERED: *HR* Dextrose 50 % in Water (Vial) 50 ML VIAL IVP PRN (23:03)
[2020-08-20] MEDS ORDERED: Ipratropium/Albuterol Neb 3 ML IH PRN
[2020-08-20] MEDS: Insulin DETEMIR 100 UNIT/ML X5UNITS SUBQ SCH ×3 (01:23→20:49)
[2020-08-20] MEDS: Aspirin Enteric Coated 81 MG Tablet PO SCH (01:23)
[2020-08-20] MEDS ORDERED: 0.9 % Sodium Chloride 250 ML ONE ×2 (03:06→11:31)
[2020-08-20] MEDS ORDERED: Bumetanide 1 MG TABLET PO SCH (08:00)
[2020-08-20 08:19] LABS: Immature Reticulocyte % 45.4 % (11.0-38.0); Retculocyte # 0.12 M/mcL (0.05-0.10); Reticulocyte % 6.4 % (1.6-2.8)
[2020-08-20 09:25] LABS: Basophils # 0.1 K/mcL (0.0-0.2); Basophils % 0.5 %; Eosinophils # 0.7 K/mcL (0.0-0.6); Eosinophils % 6.3 %; Hematocrit 20.6 % (37.5-50.1); Hemoglobin 6.4 g/dL (12.9-16.9); Immature Granulocytes % 1.7 % (0-4); Lymphocytes # 2.1 K/mcL (0.6-4.6); Lymphocytes % 18.7 %; Mean Corpuscular HGB Conc 31.1 g/dL (31.6-35.5); Mean Corpuscular Hemoglobin 28.6 pg (28.0-33.3); Mean Platelet Volume 9.3 fL (9.4-12.4); Monocytes # 0.9 K/mcL (0.0-1.3); Monocytes % 7.6 %; Neutrophils # 7.4 K/mcL (1.6-8.9); Nucleated Red Blood Cells 0.3 /100 WBC (0); Platelet Count 296 K/mcL (140-400); Red Blood Count 2.24 M/mcL (4.19-5.50); Red Cell Distribution Width 15.6 % (11.5-14.5); Segmented Neutrophils % 65.2 %; White Blood Count 11.4 K/mcL (4.3-11.1)
[2020-08-20 09:26] LABS: Immature Reticulocyte % 50.6 % (11.0-38.0); Retculocyte # 0.13 M/mcL (0.05-0.10); Reticulocyte % 5.7 % (1.6-2.8)
[2020-08-20 09:32] LABS: INR 1.1
[2020-08-20] MEDS: Insulin LISPRO 300 UNITS/3 ML VIAL SUBQ SCH ×4 (09:33→20:49)
[2020-08-20] MEDS: Sennosides 8.6 MG TABLET PO SCH ×2 (09:33→20:48)
[2020-08-20] MEDS: Bumetanide 1 MG TABLET PO SCH ×2 (09:33→17:19)
[2020-08-20 09:38] LABS: Estimated Average Glucose 214 mg/dl; Hemoglobin A1C 9.1 %
[2020-08-20 09:43] LABS: Calcium 8.5 mg/dL (8.6-10.3); Magnesium 2.2 mg/dL (1.6-2.6); Phosphorous 6.3 mg/dL (2.7-4.5); Potassium 4.1 mEq/L (3.5-5.1)
[2020-08-20 09:45] LABS: Albumin 2.8 g/dL (3.5-5.7); Albumin/Globulin Ratio 0.8 (1.1-2.2); Bilirubin,Direct 0.1 mg/dL (0.0-0.2); Bilirubin,Indirect 0.3 mg/dL (0.0-1.0); Bilirubin,Total 0.4 mg/dL (0.3-1.0); Globulin 3.6 g/dL (2.4-3.5); Total Protein 6.4 g/dL (6.4-8.9)
[2020-08-20 12:07] LABS: Bacteria,Urine Few per hpf (None-Few); Bilirubin,Urine Negative (Negative); Blood,Urine Negative (Negative); Clarity,Urine Turbid (Clear); Color,Urine Light-Yellow (Yellow); Glucose,Urine (UA) 30 mg/dL (Normal); Ketones,Urine Negative (Negative); Leukocyte Esterase,Urine Large (Negative); Nitrite,Urine Positive (Negative); PH,Urine 5.5 pH Units (5.0-8.0); Protein,Urine Negative (Neg-Trace); Specific Gravity,Urine 1.011 (1.010-1.025); Squamous Epithelial Cell,Urine Few per hpf (None-Few); Urobilinogen,Urine Normal (Normal); WBC,Urine TNTC per hpf (0-3)
[2020-08-20] MEDS ORDERED: Bisacodyl 10 MG RECTAL SUPPOSITORY RC PRN (15:35)
[2020-08-20 16:12] LABS: Hematocrit 24.3 % (37.5-50.1); Hemoglobin 7.6 g/dL (12.9-16.9)
[2020-08-20] MEDS: Silvasorb 44.4 ML TUBE TP SCH (17:19)
[2020-08-20] MEDS: carvediloL 6.25 MG TABLET PO SCH (20:48)
[2020-08-21] MEDS ORDERED: *HR* OxyCODONE Immed Rel 5 MG TABLET PO PRN (00:40)
[2020-08-21 02:45] LABS: Basophils % 0.4 %; Eosinophils # 0.7 K/mcL (0.0-0.6); Hematocrit 22.8 % (37.5-50.1); Hemoglobin 6.9 g/dL (12.9-16.9); Immature Granulocytes % 1.4 % (0-4); Lymphocytes % 21.6 %; Mean Corpuscular HGB Conc 30.3 g/dL (31.6-35.5); Mean Corpuscular Hemoglobin 28.3 pg (28.0-33.3); Mean Corpuscular Volume 93.4 fL (83.0-100.0); Mean Platelet Volume 9.5 fL (9.4-12.4); Monocytes # 0.8 K/mcL (0.0-1.3); Monocytes % 8.6 %; Neutrophils # 5.6 K/mcL (1.6-8.9); Nucleated Red Blood Cells 0.2 /100 WBC (0); Platelet Count 300 K/mcL (140-400); Red Blood Count 2.44 M/mcL (4.19-5.50); Red Cell Distribution Width 15.9 % (11.5-14.5); White Blood Count 9.2 K/mcL (4.3-11.1)
[2020-08-21 03:02] LABS: Calcium 8.3 mg/dL (8.6-10.3)
[2020-08-21] MEDS ORDERED: 0.9 % Sodium Chloride 250 ML ONE (05:36)
[2020-08-21] MEDS: Bumetanide 1 MG TABLET PO SCH ×2 (08:50→18:05)
[2020-08-21] MEDS: carvediloL 6.25 MG TABLET PO SCH ×2 (08:51→21:36)
[2020-08-21] MEDS: Sennosides 8.6 MG TABLET PO SCH ×2 (08:51→21:35)
[2020-08-21] MEDS ORDERED: Sennosides 8.6 MG TABLET PO SCH (09:00)
[2020-08-21] MEDS ORDERED: Loratadine 10 MG TABLET PO SCH (09:00)
[2020-08-21] MEDS ORDERED: Cyanocobalamin (B-12) 1,000 MCG TABLET PO SCH (09:00)
[2020-08-21] MEDS ORDERED: polyethylene glycoL 3350 17 GM POWD.PACK PO SCH (09:00)
[2020-08-21] MEDS: Insulin DETEMIR 100 UNIT/ML X5UNITS SUBQ SCH ×2 (09:01→21:33)
[2020-08-21] MEDS: Insulin LISPRO 300 UNITS/3 ML VIAL SUBQ SCH ×4 (09:01→21:35)
[2020-08-21] MEDS: Silvasorb 44.4 ML TUBE TP SCH (09:03)
[2020-08-21 09:52] LABS: Hematocrit 24.5 % (37.5-50.1); Hemoglobin 7.7 g/dL (12.9-16.9)
[2020-08-21 16:20] LABS: Hematocrit 24.6 % (37.5-50.1); Hemoglobin 7.7 g/dL (12.9-16.9)
[2020-08-21 21:17] VITALS: BP 144/54
[2020-08-21] MEDS: Aspirin Enteric Coated 81 MG Tablet PO SCH (21:35)
[2020-08-22 12:13] LABS: SARS-CoV-2 by NAA Not Detected (Not Detect)
== END 2020-08-22 01:20 | disposition hospice, home (50) ==
LOC: EMEROOARM 18:24 → 2ANU 18:24 → SUATTDRO 21:53 → 2ANU 23:22 → 3NENU 08-20 23:14
PROVIDERS: ADMIT Internal Medicine; ATTEND Family Medicine